=== PATIENT | male | born 1935 | race Caucasian/White ===

== ENCOUNTER 2019-02-08 14:15 | Outpatient (CLI) | payer MEDICARE, BC ==
--- NOTE | 2019-02-08 15:46 | CT ---
CT of the abdomen and pelvis with and without IV contrast INDICATION: Gross hematuria TECHNIQUE: Noncontrast CT of the abdomen and pelvis was performed. Postcontrast images were obtained in the nephrographic phase and delayed phase. Axial and coronal reformatted images were constructed from the raw data. FINDINGS: ABDOMEN: There is a focal region of airspace opacity within the right lower lobe with a small right p leural effusion. Liver: Normal.. Pancreas: Normal. Gallbladder: Partially contracted. Adrenal glands: There is a 2.3 cm right adrenal adenoma. The left adrenal gland is normal-appearing. Kidneys: There is a 10.4 x 10.5 cm cyst that demonstrates areas of peripheral thin interrupted calcif ications. There is a small thin partially calcified septation noted within the inferior pole of the lesion. There are additional simple appearing cyst within the right and left kidney. One of the large st within the right kidney is seen measuring 4 cm within the right mid kidney. No suspicious solid renal lesion is demonstrated.. Spleen: Normal. Retroperitoneum: There is severe calcifications involving the abdominal pelvic vasculature. No lympha denopathy is evident. Pelvis: Bowel: There are scattered diverticula involving the colon without evidence of active diverticulitis. Renal collecting system and bladder: There is suggestion of focal wall thickening and mild narrowing involving the left mid to distal ureter on image 99 of series 4, image 53 of series 6 and image 42 of series 7. No additional gross urothelial lesion is identified. Reproductive structures: The prostate gland is enlarged measuring 5.7 cm. Rectum and perirectal soft tissues: Normal. There is a 1.3 cm enlarged lymph node seen adjacent to the left obturator internus. There is a 1.0 cm enlarged lymph node adjacent to the left external iliac vasculature. Osseous structures: No acute osseous abnormality is demonstrated. IMPRESSION: 1. Focal region of suggested wall thickening and mild stenosis involving the mid to distal left urete r at approximately the L4-L5 intervertebral level. This may be artifactual in nature related to focal peristalsis; however, a focal urothelial lesion cannot been definitely excluded. Recommend cons ideration for retrograde IVP for additional characterization of this finding. 2. Bilateral renal cysts. The largest within the left kidney is consistent with a Bosniak 2 cyst. 3. Prostate enlargement 4. Nonspecific mildly prominent lymph nodes within the left aspect of the pelvis. The largest is seen adjacent to the left obturator internus measuring 1.3 cm. The lymph nodes may be reactive in nature. Would recommend a follow-up CT examination in 4-6 weeks to document stability or resolution. 5. Colonic diverticulosis 6. Right adrenal adenoma 7. Small right pleural effusion with right basilar opacity may reflect rounded atelectasis; however, rounded pneumonia cannot be totally excluded. Recommend correlation with the clinical exam.
[2019-02-08] MEDS ORDERED: ISOVUE-370 76%-LOCM 1 ML ONE (17:09)
== END 2019-02-08 14:16 | disposition home or self-care (01) ==
LOC: BICCT 14:15
PROVIDERS: ATTEND Urology
DX: R31.0 Gross hematuria (principal); N28.89 Other specified disorders of kidney and ureter; N40.0 Benign prostatic hyperplasia without lower urinary tract symptoms; N28.1 Cyst of kidney, acquired; R59.0 Localized enlarged lymph nodes; K57.30 Diverticulosis of large intestine without perforation or abscess without bleeding; D35.01 Benign neoplasm of right adrenal gland; J90 Pleural effusion, not elsewhere classified; R91.8 Other nonspecific abnormal finding of lung field
CPT/HCPCS: 36415; 74178; 82565; G0103; Q9966

== ENCOUNTER 2019-03-17 00:44 | Outpatient (CLI) | payer MEDICARE, BC ==
[2019-03-17 12:07] LABS: Hemoglobin 17.2 g/dL (14.0-18.0); Mean Corpuscular HGB CONC 32.8 g/dL (32.0-36.0); Mean Corpuscular Hemoglobin 31.5 pg (27.0-31.0); Mean Platelet Volume 7.8 fL (7.4-10.4); Platelet Count 204 thou/uL (130-400); RBC Distribution Width 12.9 % (11.5-14.5); Red Blood Cell (RBC) Count 5.45 mill/uL (4.70-6.10); White Blood Cell (WBC) Count 8.9 thou/uL (4.8-10.8)
[2019-03-17 12:12] LABS: PTT 28.6 SEC (22.9-36.1); Prothrombin Time 13.7 SEC (12.0-14.7)
[2019-03-17 12:18] LABS: Bacteria/HPF None Seen HPF (None Seen); Hyaline Casts/LPF 0-3 HYALINE CAST LPF (0-3 Hyaline); Squamous Epithelial 0-3 HPF (0-3); WBC/HPF 0-3 HPF (0-3)
[2019-03-17 12:26] LABS: Anion Gap 15 mmol/L (10-20); BUN (Urea Nitrogen) 26 mg/dL (8.4-25.7); Calc. Creatinine Clearance 0 mL/min (70-130); Calcium 9.6 mg/dL (7.8-10.44); Carbon Dioxide 26 mmol/L (23-31); Chloride 104 mmol/L (98-107); Estimated GFR-MDRD 61; Glucose 174 mg/dL (83-110); Potassium 5.6 mmol/L (3.5-5.1); Sodium 139 mmol/L (136-145)
--- NOTE | 2019-03-19 21:16 | EKG ---
Test Reason : Blood Pressure : / mmHG Vent. Rate : 063 BPM Atrial Rate : 063 BPM P-R Int : 000 ms QRS Dur : 166 ms QT Int : 502 ms P-R-T Axes : 000 -15 122 degrees QTc Int : 513 ms AV sequential or dual chamber electronic pacemaker When compared with ECG of 16-MAR-2013 00:29, Electronic ventricular pacemaker has replaced Electronic atrial pacemaker Confirmed by Dillan YANEZ ([id number]) on 03/19/2019 9:16:03 PM Referred By: CINDI Confirmed By:Dillan YANEZ
== END 2019-03-17 00:45 | disposition home or self-care (01) ==
LOC: LABBT 00:44
PROVIDERS: ATTEND Urology
DX: Z01.818 Encounter for other preprocedural examination (principal); C67.2 Malignant neoplasm of lateral wall of bladder; N40.0 Benign prostatic hyperplasia without lower urinary tract symptoms; N39.41 Urge incontinence; R35.1 Nocturia
CPT/HCPCS: 80048; 81015; 85027; 85610; 85730; 87086; 93005; 93010

== ENCOUNTER 2019-03-27 12:04 | Inpatient (IN) | payer MEDICARE, BC ==
[~2019-03-27 12:04] MED LIST: ISOVUE-370 76%-LOCM 1 ML ONE
[2019-03-27 12:31] LABS: #Lymphocytes 0.9 thou/uL (1.20-3.40); #Monocytes 1.5 thou/uL (0.11-0.59); #Neutrophils 11.2 thou/uL (1.40-6.50); %Eosinophils 0.2 % (0.0-10.0); %Lymphocytes 6.6 % (21.0-51.0); %Neutrophils 82.2 % (42.0-75.0); Hemoglobin 14.5 g/dL (14.0-18.0); Mean Corpuscular HGB CONC 33.2 g/dL (32.0-36.0); Mean Corpuscular Hemoglobin 31.5 pg (27.0-31.0); Mean Corpuscular Volume 94.9 fL (78.0-98.0); Mean Platelet Volume 8.3 fL (7.4-10.4); Platelet Count 153 thou/uL (130-400); RBC Distribution Width 12.8 % (11.5-14.5); Red Blood Cell (RBC) Count 4.61 mill/uL (4.70-6.10); White Blood Cell (WBC) Count 13.6 thou/uL (4.8-10.8)
--- NOTE | 2019-03-27 12:31 | CT ---
Exam: CT brain PROVIDED CLINICAL HISTORY: Strokelike symptoms COMPARISON: 03/15/2013 FINDINGS: The ventricular system is normal in size and morphology. No evidence for intracranial hemorrhage or mass effect. The extracranial soft tissues and osseous structures demonstrate an unremarkable CT appearance. Stable encephalomalacia involving the left occipital region. IMPRESSION: No evidence for intracranial hemorrhage or mass effect. Findings discussed with Dr. Harrington 12:28 PM .
[2019-03-27 12:39] LABS: INR-International Normal Ratio 1.2; PTT 29.7 SEC (22.9-36.1); Prothrombin Time 15.7 SEC (12.0-14.7)
--- NOTE | 2019-03-27 12:45 | RAD ---
EXAM: XR Chest 1 View Portable PROVIDED CLINICAL HISTORY: Altered mental status COMPARISON: 10/16/2018 FINDINGS: Cardiac silhouette remains enlarged. Median sternotomy changes and left subclavian cardiac pacing dev ice are redemonstrated as is vascular calcification. Prominence of the pulmonary vasculature and pulmonary interstitium. No focal consolidation, pleural fluid or pneumothorax apparent. IMPRESSION: Cardiomegaly and findings suggesting congestive failure.
[2019-03-27 12:49] LABS: ALT (SGPT) 40 U/L (8-55); AST (SGOT) 42 U/L (5-34); Albumin 3.2 g/dL (3.4-4.8); Alkaline Phosphatase 72 U/L (40-150); Anion Gap 13 mmol/L (10-20); BUN (Urea Nitrogen) 43 mg/dL (8.4-25.7); Bilirubin, Total 1.2 mg/dL (0.2-1.2); Calc. Creatinine Clearance 0 mL/min (70-130); Calcium 8.9 mg/dL (7.8-10.44); Carbon Dioxide 24 mmol/L (23-31); Chloride 103 mmol/L (98-107); Estimated GFR-MDRD 37; Globulin 2.5 g/dL (2.4-3.5); Glucose 339 mg/dL (83-110); Potassium 4.8 mmol/L (3.5-5.1); Protein, Total 5.7 g/dL (5.8-8.1); Sodium 135 mmol/L (136-145)
--- NOTE | 2019-03-27 12:52 | CT ---
EXAM: CTA Angio Head with IV contrast and 3-D MIPS reconstructions CT angiogram neck with IV contrast and three-dimensional MIPS reconstructions PROVIDED CLINICAL HISTORY: Strokelike symptoms COMPARISON: Noncontrast CT brain FINDINGS: 3 vessel arch with significant atherosclerosis including calcified and noncalcified atherosclerotic p laque. Right pleural fluid and pulmonary vascular congestion. High-grade stenosis due to both calcified and noncalcified plaque is present involving both the right and left proximal internal carotid arteries with minimal residual luminal diameters of approximately 1 mm on the left and less than 1 mm on the right. Additional less than 50% stenosis inv olves the left mid internal carotid artery. Prominent vascular calcification involves the cavernous portions of each internal carotid artery. The great vessels demonstrate no additional significant stenosis. There is no evidence for focal vessel stenosis, branch occlusion or aneurysm involving the intracrani al circulation. IMPRESSION: 1. Critical bilateral proximal internal carotid artery stenoses. 2. No significant abnormality involving CTA brain.
[2019-03-27 13:19] LABS: CKMB 5.7 ng/mL (0-6.6)
[2019-03-27 14:16] LABS: Bilirubin Negative (Negative); Blood, Urine Large (Negative); Clarity CLEAR (Clear); Glucose, Urine (Dipstick) 250 mg/dL (Negative); Leukocyte Negative (Negative); Nitrite Negative (Negative); Protein, Urine (Dipstick) 30 mg/dL (Neg-Trace); Specific Gravity, Urine 1.039 (1.002-1.036); pH, Urine 5.5 (5.0-9.0)
[2019-03-27 14:19] LABS: Bacteria/HPF None Seen HPF (None Seen); Hyaline Casts/LPF 0-3 HYALINE CAST LPF (0-3 Hyaline); RBC/HPF 21-50 HPF (0-3); Squamous Epithelial None Seen HPF (0-3)
[2019-03-27] MEDS ORDERED: Aspirin Chewable 81 MG TAB ONE (15:36)
[2019-03-27] MEDS ORDERED: Acetaminophen 325 MG TAB PO PRN (16:27)
[2019-03-27] MEDS ORDERED: Ondansetron PF 4 MG/2 ML Vial IVP PRN (16:27)
[2019-03-27] MEDS ORDERED: hydrALAZINE 20 MG/ML VIAL SLOW IVP PRN (16:27)
[2019-03-27] MEDS ORDERED: Benzonatate 100 MG CAP PO PRN (16:27)
[2019-03-27] MEDS ORDERED: Bisacodyl 5 MG TAB PO PRN (16:27)
[2019-03-27] MEDS ORDERED: Senokot S 8.6-50 MG TAB PO PRN (16:27)
[2019-03-27] MEDS ORDERED: Nitroglycerin 0.4 MG TAB (25 Tab Bottle) SL PRN (16:27)
[2019-03-27] MEDS ORDERED: Diabetic Tussin 200 MG/10 ML UDCUP PO PRN (16:27)
[2019-03-27] MEDS ORDERED: Dextrose 5% in Water 1,000 ML IV PRN (17:18)
[2019-03-27] MEDS ORDERED: Dextrose 50% Abboject 50 ML SYRINGE SLOW IVP PRN (17:18)
[2019-03-27] MEDS ORDERED: HumaLOG 300 UNITS/3 ML VIAL SC PRN ×2 (17:18)
[2019-03-27] MEDS ORDERED: Furosemide 40 MG/4 ML VIAL SLOW IVP SCH (17:30)
[2019-03-27] MEDS ORDERED: Spironolactone 25 MG TAB PO SCH (17:45)
[2019-03-27 17:56] LABS: Critical Call Chem Troponin I RESULT DECREASING; Troponin I 10.851 ng/mL (< 0.028)
--- NOTE | 2019-03-27 18:57 | HP ---
PRIMARY CARE PHYSICIAN: John Armas MD. PRIMARY RETAIL SALES ASSOCIATE: Ian Tong MD. CHIEF COMPLAINT: Problems with speech and weakness. HISTORY OF PRESENTING ILLNESS: Mr. Perry is a pleasant 83-year-old male with known history of dyslipidemia, coronary artery disease with CABG as well as chronic ischemic cardiomyopathy, status post AICD placement in the past, who presented to the emergency room with the above-mentioned complaint. History is mainly obtained from the patient himself, and electronic medical records have been reviewed. The patient reports that he was having breakfast this morning when all of a sudden he had onset of generalized weakness, more so in his arms and the legs. He then proceeded to developed difficulty with his speech. He remembers the whole episode and feels that he was trying to talk, but his words would not come out. His called the EMS, and he was air evacuated because of the acute neurological deficits. The also reported to the EMS that he had right-sided facial droop, dysarthria, and right hand weakness. Symptom onset was around 10 a.m., this morning. According to the EMS, the patient was able to move right upper extremity with equal surgical physician assistant strength. The patient had no recent illnesses, but has undergone bladder surgery by Dr. Saucedo 2 days ago with ureteroscopy and retrograde pyelogram. He has noticed some blood in his urine, which has since cleared up. He is supposed to be on aspirin and Plavix, but was not able to tell me if he has taken them today or not. He denies any chest pain, shortness of breath, orthopnea, or PND during the episode today. He does remember that he has been feeling more tired and lethargic yesterday. Upon presentation to the emergency room, his blood pressure was 150/81, saturations 94% on room air. His initial workup included a 12-lead EKG, which showed paced rhythm and prolonged QTc interval of [address] He [address] scan of the head, which did not show any acute changes or hemorrhage. His chest x-ray did suggest pulmonary vascular congestion. He underwent a CT angio of the [place] of head as well as head and neck, and it showed high-grade critical bilateral proximal internal carotid artery stenosis. He was last admitted to our facility in 2012, for similar symptoms of stroke and underwent tPA. At that time, the CT angio showed moderate bilateral internal carotid artery stenosis. In the emergency room, his symptoms have resolved, so he was not a tPA candidate. Unfortunately, his workup revealed a troponin of 10.57, which went higher to 11.443. Cardiology, Dr. Vaca on-call was consulted by the emergency room physician, and he recommended aspirin and Plavix. Lovenox was not recommended by Dr. Vaca at this time. Emergency room physician did not give the Plavix because of recent bladder surgery 2 days ago. The patient was found to have some rbc's and blood in his urine on urinalysis. At this time, he is hemodynamically stable. Awake, alert, and oriented with no neurological deficits. He will be admitted to [facility] for [id number] ME as well as acute CVA. PAST MEDICAL HISTORY: 1. Hypertension. 2. Coronary artery disease, status post CABG. 3. Ischemic cardiomyopathy, status post AICD placement. 4. Diabetes mellitus, type 2. 5. Hypothyroidism. 6. Dyslipidemia. 7. Chronic systolic congestive heart failure. 8. History of CVA in 2012. PAST SURGICAL HISTORY: 1. Coronary artery bypass graft. 2. AICD placement. 3. Recent retrograde pyelogram with ureteroscopy by Dr. Saucedo on 03/25/2019, for bladder tumor resection, which was found to be low-grade papillary urothelial carcinoma, noninvasive as per the Pathology report. CODE STATUS: Full code, discussed with the patient in detail. ALLERGIES: NO KNOWN MEDICATION ALLERGIES. SOCIAL HISTORY: He is and lives with his . No history of drug, tobacco, or alcohol abuse. FAMILY HISTORY: No family history of coronary artery disease, stroke, or cancer. CURRENT MEDICATIONS: As per the emergency room record, he takes the followin. Entresto 49/51 b.i.d. 2. Aspirin 81 mg daily. 3. Digoxin 125 mcg daily. 4. Aldactone 25 mg daily. 5. Carvedilol 12.5 mg daily. 6. Plavix 75 mg daily. 7. Centrum Silver daily. 8. Fish oil 1000 mg p.o. b.i.d. REVIEW OF SYSTEMS: A 14-point review of systems is done. It is negative except for those mentioned in the history and physical. LABORATORY EXAMINATION: CBC shows WBCs of 13.6 with 82% neutrophils, otherwise unremarkable; hemoglobin is 14.5. PT, PTT, and INR are unremarkable. Serum chemistry shows sodium of 135, BUN 43, creatinine 1.78 with last baseline in our facility around 1.14 on 03/17/2019. His blood sugar upon presentation is 339, and his troponin is 10.578 with a CK-MB of 5.7 and repeat troponin of 11.443. BNP was checked by myself, which was found to elevate at 1467. Urinalysis showed some rbc's and large blood without any bacteria. Chest x-ray by my review shows pulmonary vascular congestion. CT scan of the brain by my review shows no acute hemorrhage or mass or infarction. A 12-lead EKG by my review shows heart rate at 62, AV paced rhythm with QTc of [address] milliseconds without any acute ST or T-wave changes. PHYSICAL EXAMINATION: VITAL SIGNS: Upon presentation, blood pressure 150/81, pulse of 60, respirations 20, temperature 97.6, saturating 94% on room air. GENERAL: No acute distress. Awake, alert, and oriented x3. He appears to be in good spirits, but generally speaking, looks chronically ill. HEENT: Mucous membrane is slightly dry. No oropharyngeal exudate or erythema. Head is normocephalic and atraumatic. Pupils are equal and reactive to light and accommodation. Extraocular movement, intact. NECK: Supple without any lymphadenopathy, JVD, or bruit. CHEST: Clear to auscultation without any wheezing, rales, or rhonchi. He has a big pacemaker battery, left anterior chest without any dehiscence, erythema, or tenderness. CHEST: Shows few bibasilar crackles without any wheezes. ABDOMEN: Soft, nontender, and nondistended with positive bowel sounds. No rebound, guarding, or rigidity. EXTREMITIES: Free of any cyanosis, clubbing, or edema. NEUROLOGIC: At this time, he has no neurological deficits. Muscle strength is at least 4/5 in bilateral extremities. Cranial nerves 2 through 12 are grossly intact. Sensation, intact. His speech is not dysarthric, and he does not have any aphasia on my examination. He does have some halting speech, but I feel that is his baseline. SKIN: Free of any rashes or bruises. Feels warm and dry to touch. PSYCHIATRIC: Normal affect. IMPRESSION AND PLAN: 1. Acute onset of aphasia. Symptoms are quite concerning for acute cerebrovascular accident. He will be admitted for full stroke workup. We have ordered MRI of the brain along with a transthoracic echocardiogram. He does have high-grade internal carotid artery stenosis and severe coronary artery disease making him a very high risk. We will consult Neurology. I have notified Dr. Gómez about the patient is being admitted to the hospital. At this time, continue the aspirin, but we will withhold any further anticoagulation given his recent bladder surgery and hematuria. He is otherwise hemodynamically stable, and his stroke symptoms have since . We will consult Stroke Team with OT, PT, and Speech Therapy evaluation and continue to do frequent neuro exams. Because of his severity of symptoms and other issues, he will be admitted to IMCU instead of stroke floor. We will start him on high-dose statin. 2. Ipb-CJ-qmfypthwh myocardial infarction. The patient's symptoms are quite concerning for a cardiac event as well. We will continue to trend serial cardiac enzymes and continue with full-dose aspirin for now. Cardiology has been consulted from the emergency room, and Dr. Vaca has seen the patient. According to him at this time, there are no plans for cardiac catheterization, but we will keep him n.p.o. for now. We will obtain a transthoracic echocardiogram. We will continue with his Entresto and his carvedilol. We will start him on high-dose statin. 3. Vuesf-gy-mwkctza systolic congestive heart failure. The patient has vascular congestion on chest x-ray with elevated BNP. He does not appear grossly fluid overloaded, but it is a possibility that he is in acute congestive heart failure, leading to elevation of troponin. We will give him 1 dose of Lasix and recheck BNP in the morning. We will restart his carvedilol, Aldactone, and digoxin for now. Continue aspirin and statin. We will continue with his Entresto as well. Echocardiogram has been ordered as part of the stroke protocol. 4. Bilateral carotid artery stenosis. We will request consultation with Cardiovascular Surgery, though it does not seem like he is surgically amenable. He will be started on high-dose statin and aspirin for now. Restart Plavix once cleared by Cardiology and Neurology. 5. History of cerebrovascular accident. Continue aspirin and statin for now. Resume Plavix once cleared by Cardiology. 6. Diabetes mellitus, type 2, uncontrolled. We will put him on aggressive insulin sliding scale and monitor Accu-Cheks a.c. and at bedtime. 7. Hypertension, currently controlled. Restart home medication as above including carvedilol. 8. History of coronary artery disease. Restart Entresto, aspirin, digoxin, Aldactone, and carvedilol. Plavix is held as above. Resume fish oil. 9. Deep venous thrombosis and gastrointestinal prophylaxis. 10. Code status: Full code, discussed with the patient. DISPOSITION: Mr. Perry is being admitted to the [facility] for multitude of issues as outlined above. Estimated length of stay at this time is at least 2 to 3 midnights. He is thankfully hemodynamically stable for now. TIME SPENT: Total time spent in taking care of this patient, 47 minutes including discussion with consultants and [id number] interaction. Job ID: [id number]
[2019-03-27] MEDS: Famotidine 20 MG TAB PO SCH (19:42)
[2019-03-27] MEDS: Atorvastatin Calcium 40 MG TAB PO SCH (19:42)
[2019-03-27 20:02] VITALS: BMI 26.2
[2019-03-27 21:35] LABS: Critical Call Chem Troponin I RESULT DECREASING; Troponin I 10.289 ng/mL (< 0.028)
[2019-03-27] MEDS: Sacubitril 49 MG/Valsartan 51 MG TABLET PO SCH (22:27)
--- NOTE | 2019-03-28 02:52 | CON ---
DATE OF CONSULTATION: HISTORY OF PRESENT ILLNESS: Alvin Perry is an 83-year-old white male I have seen in the past; however, his current reimbursement representative is Dr. Tong. I first evaluated him in February 2004. Prior to that in May 1999 while he was living in [place], he had a myocardial infarction, was transferred to [place], [place]. He underwent a cardiac catheterization there followed by stent placement. His pain at that time was right neck discomfort. Then, I saw him in February 2004. He was referred for evaluation prior to peripheral vascular treatment. Ejection fraction at that time was 25% to 30% and he underwent dobutamine echo testing, which revealed scar at the inferior-posterior wall as well as scarring of the lateral wall and he developed septal ischemia. He underwent cardiac catheterization. He had inferobasal akinesis and moderate anterior hypokinesis. There was a stent in the right coronary artery that was totally occluded and the right coronary filled retrograde from the left. The mid circumflex is totally occluded and filled retrograde from the left. The LAD had a 50% to 60% proximal stenosis and a 50% mid stenosis. He then underwent CABG x3 by Dr. Mcintyre in February 2004. There was left radial artery placed to the LAD, saphenous vein graft to the obtuse marginal 2 and saphenous vein graft to the right posterior descending. He continued to have poor left ventricular function, and ultimately in February 2009, he underwent placement of a dual-chamber ICD. In April 2011, he apparently had placement of a drug-eluting stent in the mid LAD while visiting in [place]. He stated that he was never given a prescription for Plavix when he was discharged. He then presented to [facility] later in April, with anterolateral ST-segment elevation myocardial infarction secondary to acute LAD stent thrombosis. He was given TNKase and heparin in [place] and apparently reperfused. He was taken emergently to the blood and plasma laboratory assistant by Dr. Akers. The LAD stent was patent, but with probable thrombus in it. Right coronary artery was totally occluded. Bypass grafts revealed occluded radial to the LAD and occluded saphenous vein graft to the obtuse marginal. The vein graft to the right posterior descending was patent. He underwent IVUS of the LAD stent and it appeared to be patent. He was maintained on Integrilin for approximately 48 hours. Peak CK was 858 with an MB of 93.7. Troponin I of 249.755. LDL at that time was 56. The last time I saw him was in the office in May 2011. He was hospitalized here in March 2013 with cerebrovascular accident and was given tPA. He has since had upgrade to a biventricular ICD approximately 1 year ago. Two days ago, on March 25, he underwent cystoscopy with bladder biopsy, fulguration of tumor site. Mr. Perry is very vague, but apparently he held his aspirin and Plavix for several days prior to that procedure. Then, this morning, he had sudden onset of generalized weakness as well as difficulty speaking. His called EMS and he was air evacuated because of the acute neurological changes. He also had some right-sided hand weakness, right-sided facial droop. Upon arrival here, he had urgent CT scan of the head, which did not show any acute changes or hemorrhage. CT angiogram of the [place] showed high-grade critical bilateral proximal internal carotid artery stenosis. His symptoms resolved and so he was not given lytic therapy. He has been found to have an elevated troponin I, but denies any chest discomfort. His last known ejection fraction here was in 2012, which was 15% to 20%; however, since that time, he has had a biventricular ICD placed. PAST MEDICAL HISTORY: Hypertension, hypercholesterolemia, ischemic cardiomyopathy, coronary artery disease, noncompliance with medications at times, diabetes, history of CVA in 2013, and hypothyroidism. PAST SURGICAL HISTORY: CABG, AICD placement, and recent urological surgery. MEDICATIONS: 1. Carvedilol 12.5 b.i.d. 2. Digoxin 0.125 daily. 3. Proscar 5 mg daily. 4. Centrum Silver. 5. Novolin 70/30. 6. Synthroid 25 mcg daily. 7. Entresto 24/26 daily. 8. Simvastatin 80 at bedtime. 9. Aldactone 25 daily. 10. Flomax 0.4 daily. ALLERGIES: NONE. SOCIAL HISTORY: He smoked one pack per day from 1955 until 1982, but stopped at that time. He occasionally will have a drink. 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 REVIEW OF SYSTEMS: A 12-point review of systems is otherwise unremarkable. PHYSICAL EXAMINATION: VITAL SIGNS: Blood pressure 135/63, and pulse of 63. HEENT: PERRL. NECK: Supple. CHEST: Clear. CARDIAC: S1 and S2 normal without any S3 or S4. There is a 1/6 holosystolic murmur at the apex. Carotid upstrokes normal with bilateral bruits. ABDOMEN: Normal bowel sounds without tenderness, or organomegaly. EXTREMITIES: Revealed no clubbing, cyanosis, or edema. NEUROLOGIC: Grossly intact. SKIN: Warm and dry. LABORATORY DATA: EKG reveals A-V pacing. White count 13,600, hemoglobin 14.5, hematocrit 43.8, platelets 153. INR 1.2. Troponin I 11.443. BNP 1467.2. Sodium 135, potassium 4.8, chloride 103, carbon dioxide 24, BUN 43, creatinine 1.78 (on March 17, creatinine was 1.14). IMPRESSION: 1. Transient ischemic attack with some aphasia, right-sided weakness. 2. Bilateral critical internal carotid artery stenosis. 3. Probable non-ST segment elevation myocardial infarction with significant elevation of troponin I. He has been off aspirin and Plavix for his urological procedure and certainly this could have contributed to a non-ST segment elevation myocardial infarction as well as transient ischemic attack. 4. Severe ischemic cardiomyopathy, unknown ejection fraction since upgrade to a biventricular ICD. 5. History of biventricular ICD. 6. Status post coronary artery bypass grafting. Last catheterization that I am aware of in 2010, only his graft to the right posterior descending was patent. He had a patent left anterior descending stent. 7. History of inferior myocardial infarction in 1998 with placement of stent in the right coronary artery in [place]. 8. Hypertension. 9. Hyperlipidemia, probably under poor control with last LDL in September 2018 was 157. 10. Hypothyroidism. 11. Former smoker. 12. Positive family history with father having CABG at age 40. PLAN: Echocardiogram will be performed to reassess left ventricular function. He has critical bilateral carotid artery stenosis and now has had significant TIA when he was off antiplatelet therapy. Vascular Surgery consultation is needed. Certainly, consideration may be given to cardiac catheterization to reassess left ventricular function. His creatinine will be followed very closely with the patient just receiving [address] and [place]. If his creatinine range is significantly elevated tomorrow, then consideration may be given to gentle IV hydration. I will follow the patient with you. Job ID: [id number] [facility]
[2019-03-28 04:33] LABS: #Eosinphils 0.2 thou/uL (0.0-0.7); #Lymphocytes 1.6 thou/uL (1.20-3.40); #Monocytes 1.5 thou/uL (0.11-0.59); #Neutrophils 10.2 thou/uL (1.40-6.50); %Basophils 0.2 % (0.0-1.0); %Eosinophils 1.8 % (0.0-10.0); %Lymphocytes 11.9 % (21.0-51.0); %Neutrophils 75.2 % (42.0-75.0); Hemoglobin 15.3 g/dL (14.0-18.0); Mean Corpuscular HGB CONC 32.6 g/dL (32.0-36.0); Mean Corpuscular Hemoglobin 30.6 pg (27.0-31.0); Mean Platelet Volume 8.1 fL (7.4-10.4); Platelet Count 193 thou/uL (130-400); RBC Distribution Width 12.8 % (11.5-14.5); Red Blood Cell (RBC) Count 5.01 mill/uL (4.70-6.10); White Blood Cell (WBC) Count 13.6 thou/uL (4.8-10.8)
[2019-03-28 04:56] LABS: Anion Gap 12 mmol/L (10-20); BUN (Urea Nitrogen) 36 mg/dL (8.4-25.7); Calc. Creatinine Clearance 42 mL/min (70-130); Calcium 9.7 mg/dL (7.8-10.44); Carbon Dioxide 28 mmol/L (23-31); Cardiac Risk 3.6 (Less than 4.5); Chloride 101 mmol/L (98-107); Cholesterol 114 mg/dl (< 200 Desired); Estimated GFR-MDRD 53; HDL Cholesterol 32 mg/dL (>60 Neg Risk); LDL Cholesterol, Calculated 68 mg/dL; Potassium 3.4 mmol/L (3.5-5.1); Sodium 138 mmol/L (136-145); Triglycerides 69 mg/dL (Less than 150)
[2019-03-28 05:05] LABS: Critical Call Chem Troponin I RESULT DECREASING
[2019-03-28 05:07] LABS: Glucose 55 mg/dL (83-110)
[2019-03-28 05:23] LABS: CKMB 2.6 ng/mL (0-6.6)
[2019-03-28] MEDS ORDERED: Enoxaparin Sodium 40 MG/0.4 ML SYRINGE SC SCH (09:00)
[2019-03-28] MEDS: Famotidine 20 MG TAB PO SCH (09:20)
[2019-03-28] MEDS: Carvedilol 6.25 MG TAB PO SCH ×2 (09:20→16:26)
[2019-03-28] MEDS: Digoxin 0.125 MG TAB PO SCH (09:20)
[2019-03-28] MEDS: Spironolactone 25 MG TAB PO SCH (09:20)
[2019-03-28] MEDS: Aspirin 325 mg Enteric Coated Tablet PO SCH (09:20)
[2019-03-28] MEDS: Sacubitril 49 MG/Valsartan 51 MG TABLET PO SCH ×2 (09:21→21:12)
[2019-03-28] MEDS ORDERED: Furosemide 40 MG/4 ML VIAL SLOW IVP SCH (11:30)
[2019-03-28] MEDS: Potassium Chloride 20 MEQ TAB PO SCH ×2 (12:18→16:26)
[2019-03-28] MEDS: Communication Order-Pharmacy FS SCH (12:44)
--- NOTE | 2019-03-28 14:19 | PDOC.PN ---
- Subjective Encounter Start Date: 03/28/19 Encounter Start Time: 12:40 Subjective: no c/o chest pain or sob -: feels weak overall, stood up and is trying to ambulate with PT - Objective Resuscitation Status - Order Detail: 03/27/19 17:21 Resuscitation Status Routine Resuscitation Status: FULL: Full Resuscitation Discussed with: discussed with pt MAR Reviewed: Yes Vital Signs & Weight: Vital Signs (12 hours) Temp Pulse Pulse Pulse Resp BP BP 03/28/19 11:09 98.2 F 03/28/19 09:35 64 63 143/66 H 141/67 H 03/28/19 09:20 66 03/28/19 08:00 98.3 F 64 20 03/28/19 07:19 98.0 F 03/28/19 04:00 98.3 F Pulse Ox Pulse Ox Pulse Ox 03/28/19 11:09 03/28/19 09:35 94 L 92 L 03/28/19 09:20 03/28/19 08:00 93 L 03/28/19 07:19 03/28/19 04:00 Weight Weight 154 lb 2 oz Most Recent Monitor Data Heart Rate from ECG 65 NIBP 116/46 NIBP BP-Mean 69 Respiration from ECG 22 SpO2 97 I&O: 03/27/19 03/28/19 03/29/19 06:59 06:59 06:59 Intake Total 314 750 Output Total 850 420 Balance -536 330 Result Diagrams: 03/28/19 04:00 03/28/19 04:00 Additional Labs: Accuchecks 03/28/19 03/28/19 03/28/19 10:41 05:52 05:15 POC Glucose 100 180 H 58 L* 03/27/19 20:25 POC Glucose 105 Phys Exam - Physical Examination HEENT: PERRLA, moist MMs Neck: no JVD, supple Respiratory: no wheezing, no rales Cardiovascular: RRR, no significant murmur Gastrointestinal: soft, non-tender, positive bowel sounds Musculoskeletal: no edema, pulses present Neurological: non-focal, moves all 4 limbs Psychiatric: normal affect, A&O x 3 Dx/Plan (1) TIA (transient ischemic attack) Code(s): G45.9 - TRANSIENT CEREBRAL ISCHEMIC ATTACK, UNSPECIFIED Status: Acute (2) NSTEMI (non-ST elevated myocardial infarction) Code(s): I21.4 - NON-ST ELEVATION (NSTEMI) MYOCARDIAL INFARCTION Status: Acute (3) Acute exacerbation of CHF (congestive heart failure) Code(s): I50.9 - HEART FAILURE, UNSPECIFIED Status: Acute Qualifiers: Heart failure type: combined systolic and diastolic Qualified Code(s): I50.43 - Acute on chronic combined systolic (congestive) and diastolic ( congestive) heart failure Comment: ef of 30%, class C (4) Carotid artery stenosis Code(s): I65.29 - OCCLUSION AND STENOSIS OF UNSPECIFIED CAROTID ARTERY Status : Acute Qualifiers: Laterality: bilateral Qualified Code(s): I65.23 - Occlusion and stenosis of bilateral carotid arteries (5) CAD (coronary artery disease) Code(s): I25.10 - ATHSCL HEART DISEASE OF [place] CORONARY ARTERY W/O ANG PCTRS Status: Chronic Qualifiers: Coronary Disease-Associated Artery/Lesion type: bypass graft [place] vs. transplanted heart: [place] heart Associated angina: without angina Qualified Code(s): I25.810 - Atherosclerosis of coronary artery bypass graft(s) without angina pectoris (6) HTN (hypertension) Code(s): I10 - ESSENTIAL (PRIMARY) HYPERTENSION Status: Chronic Qualifiers: Hypertension type: essential hypertension Qualified Code(s): I10 - Essential (primary) hypertension (7) Ischemic cardiomyopathy Code(s): I25.5 - ISCHEMIC CARDIOMYOPATHY Status: Chronic (8) H/O: CVA (cerebrovascular accident) Code(s): Z86.73 - PRSNL HX OF TIA (TIA), AND CEREB INFRC W/O RESID DEFICITS Status: Chronic Comment: likely in the left occipital area in 2013 (9) Bladder cancer Status: Chronic - Plan is on asp, lipitor, coreg, digoxin, spironolactone -: recieved 1 dose lasix yest -: PT to mobilize as tolerated -: neurologically stable now -: will f/u * . Review of Systems - Medications/Allergies Allergies/Adverse Reactions: Allergies Allergy/AdvReac Type Severity Reaction Status Date / Time No Known Allergies Allergy Verified 03/17/19 10:53 Medications: Current Medications Acetaminophen (Tylenol) 650 mg PO Q4H PRN PRN Reason: Headache/Fever/Mild Pain (1-3) Aspirin (Ecotrin) 325 mg PO DAILY [facility]AT[facility] Last Admin: 03/28/19 09:20 Dose: 325 mg Atorvastatin Calcium (Lipitor) 80 mg PO HS [facility] Last Admin: 03/27/19 19:42 Dose: 80 mg Bisacodyl (Dulcolax) 10 mg PO DAILYPRN PRN PRN Reason: Constipation Carvedilol (Coreg) 12.5 mg PO BID-[facility] Last Admin: 03/28/19 09:20 Dose: 12.5 mg Dextrose/Water (Dextrose 50%) 25 gm SLOW IVP PRN PRN PRN Reason: Hypoglycemia Last Admin: 03/28/19 05:18 Dose: 25 gm Digoxin (Lanoxin) 0.125 mg PO DAILY [facility] Last Admin: 03/28/19 09:20 Dose: 0.125 mg Enoxaparin Sodium (Lovenox) 40 mg SC 0900 [facility] Stop: 03/28/19 23:00 Last Admin: 03/28/19 09:20 Dose: 40 mg Famotidine (Pepcid) 20 mg PO BID [facility] Last Admin: 03/28/19 09:20 Dose: 20 mg Furosemide (Lasix) 40 mg SLOW IVP DAILY [facility] Stop: 03/29/19 09:01 Last Admin: 03/28/19 12:19 Dose: 40 mg Glucagon (Glucagon) 1 mg IM PRN PRN PRN Reason: Hypoglycemia Guaifenesin (Robitussin Sf) 200 mg PO Q4H PRN PRN Reason: Cough Hydralazine HCl (Apresoline) 10 mg SLOW IVP Q4H PRN PRN Reason: SBP > 180 and HR < 70 Dextrose/Water (D5w) 1,000 mls @ 0 mls/hr IV .Q0M PRN PRN Reason: Hypoglycemia Sodium Chloride (Normal Saline 0.9%) 1,000 mls @ 100 mls/hr IV .Q10H [facility] Insulin Human Lispro (Humalog) 0 units SC .AGGRESSIVE SLIDING PRN PRN Reason: Aggressive Correctional Scale Insulin Human Lispro (Humalog) 0 units SC .BEDTIME SLIDING SC PRN PRN Reason: Bedtime Correctional Scale Miscellaneous Information (Communication Order-Pharmacy) 0 each FS 1200 [facility] Last Admin: 03/28/19 12:44 Dose: 1 each Nitroglycerin (Nitrostat) 0.4 mg SL Q5MIN PRN PRN Reason: Chest Pain Ondansetron HCl (Zofran) 4 mg IVP Q6H PRN PRN Reason: Nausea/Vomiting Potassium Chloride (K-Dur) 40 meq PO Q4H [facility] Stop: 03/28/19 15:31 Last Admin: 03/28/19 12:18 Dose: 40 meq Sacubitril/Valsartan (Entresto 49 Mg-51 Mg Tablet) 1 tab PO BID [facility] Last Admin: 03/28/19 09:21 Dose: 1 tab Senna/Docusate Sodium (Senokot S) 2 tab PO BID PRN PRN Reason: Constipation Sodium Chloride (Flush - Normal Saline) 10 ml IVF PRN PRN PRN Reason: Saline Flush Last Admin: 03/28/19 05:19 Dose: 10 ml Spironolactone (Aldactone) 25 mg PO QAM-[facility] Last Admin: 03/28/19 09:20 Dose: 25 mg
--- NOTE | 2019-03-28 17:45 | CON ---
DATE OF CONSULTATION: 03/28/2019 SERVICE: Pulmonary Medicine. HISTORY OF PRESENT ILLNESS: The patient is an 83-year-old white male with past medical history significant for coronary artery disease. He was in his usual state of health when he came into the hospital with overwhelming fatigue and weakness. He is also having some speech-related issues. In the emergency department, his troponin was elevated. He was tucked in the ICU. He denies any current fevers, chills, nausea, vomiting, or diarrhea. His strength has improved a little bit overnight. He is tolerating p.o. In fact, he is quite hungry. He had underwent a recent bladder surgery 2 days ago, which included a ureteroscopy and retrograde pyelogram. Overnight, he had a significant improvement in symptoms. On presentation, his troponin was quite elevated. PAST MEDICAL HISTORY: 1. Coronary artery disease. 2. Hypertension. 3. Dyslipidemia. 4. Type 2 diabetes mellitus. 5. Chronic systolic heart failure. 6. Hypothyroidism. 7. History of CVA. PAST SURGICAL HISTORY: 1. Coronary artery bypass graft surgery. 2. AICD placement. 3. Retrograde pyelogram and ureteroscopy. ALLERGIES: NO KNOWN DRUG ALLERGIES. MEDICATIONS: List of his inpatient medications was reviewed. No specific updates were made at this time. SOCIAL HISTORY: Negative for alcohol, tobacco, or illicit drug use currently. He has no exposure to chemicals, dust, asbestos, or tuberculosis. FAMILY HISTORY: Noncontributory. REVIEW OF SYSTEMS: General, head, ears, eyes, nose, throat, cardiovascular, respiratory, GI, , musculoskeletal, neurologic, and skin are negative except as mentioned is the HPI. PHYSICAL EXAMINATION: VITAL SIGNS: Afebrile, pulse 71, blood pressure 141/67, respirations 26, and saturation 97% on room air. GENERAL: The patient is awake and alert, in no apparent distress. LUNGS: Decent air entry. Dependent crackles are present. There is slightly prolonged expiratory phase, but I do not hear any wheezing or rhonchi. HEART: Normal rate, regular. ABDOMEN: Soft, nontender, and nondistended. Bowel sounds are positive. MUSCULOSKELETAL: No cyanosis or clubbing. There is trace pitting in the bilateral lower extremities. NEUROLOGIC: Grossly nonfocal. LABORATORY DATA: WBC 13.6, hemoglobin 15.3, and platelets 199,000. INR 1.2. Glucose 100, potassium 3.4, creatinine 1.29 and gently downtrending. Troponin has improved to 8, BNP 1600, historic high. Liver function studies are otherwise unremarkable. Urinalysis is positive for significant hematuria, but not much in the way of pyuria. Nitrites and leukocyte esterase are negative. Blood cultures x2 and urine culture negative to date. IMAGING STUDIES: Chest x-ray demonstrates fluid in the fissure, interstitial spaces as well as cephalization. Cardiac silhouette is quite enlarged. There are sternotomy wires present. Biventricular AICD device is noted. I do not see any obvious effusion is present. ASSESSMENT: 1. [id number] myocardial infarction. 2. Acute on chronic systolic heart failure. 3. Carotid arterial disease, critical. 4. Transient ischemic attack. 5. Recent cystoscopy with resection of cancer. DISCUSSION AND PLAN: The patient is stable currently for transition out of the ICU to the telemetry unit. Pulmonary/Critical Care will continue to follow along. Echocardiogram is currently pending. I will give the patient a couple doses of Lasix as he is minimally volume overloaded at this time. Potassium will be replaced today, we will recheck a magnesium tomorrow morning. Pulmonary will continue to follow for the time being. 70 minutes have been devoted to this patient in various activities. I personally reviewed all imaging studies and laboratory data noted within this document. For fifty percent of this time, I was interacting with the patient at the bedside or coordinating care with the care team. For the remainder of the time I was immediately available to the patient in the hospital unit. Job ID: [id number] MTDD
--- NOTE | 2019-03-28 18:21 | CON ---
DATE OF CONSULTATION: 03/28/2019 CONSULTING PHYSICIAN: Hospitalist Service. IMPRESSION: 1. Possible transient ischemic attack with transient dysarthria. 2. Bilateral high-grade internal carotid artery stenosis. 3. Diabetes. 4. Peripheral vascular disease. 5. Coronary artery disease. 6. Hyperlipidemia. 7. Aspirin and Plavix failure. PLAN: 1. Consult CT Surgery for possible endarterectomy. 2. Continue current antiplatelet therapy and statin. 3. Review echocardiogram. HISTORY OF PRESENT ILLNESS: Mr. Perry is an 83-year-old gentleman, who is a patient of Dr. Tong. He apparently had some slurred speech while at the house. He was brought into the hospital for evaluation. His CT scan of the brain did not show any acute changes. CT angiogram showed bilateral high-grade stenosis of the internal carotid arteries. He denies having any recent stroke symptoms. He has a distant history of minor stroke. He reports being compliant with his medication. PAST MEDICAL HISTORY: As listed above. ALLERGIES: NONE REPORTED. SOCIAL HISTORY: No tobacco use. FAMILY HISTORY: Noncontributory. MEDICATIONS: Medication list was reviewed. REVIEW OF SYSTEMS: A 10-system review of systems is otherwise negative. PHYSICAL EXAMINATION: GENERAL: He is a healthy-appearing elderly gentleman, in no distress. VITAL SIGNS: Stable. He is afebrile. HEENT: Pupils equal. Conjunctivae clear. Oropharynx clear. Cranium, normocephalic and atraumatic. NECK: Supple. No lymphadenopathy. EXTREMITIES: No cyanosis or edema. NEUROLOGIC: He is alert and appropriate. cranial nerves are intact. Motor exam showed equal supervisor roller printing strength. There was no tremor or dysmetria present. Sensations intact to light touch. No abnormal movements were seen. LABORATORY DATA: EKG shows a paced rhythm. SUMMARY: An elderly man with some transient bilateral high-grade stenosis. He is already on maximum medical therapy. We will see what CT Surgery has to say about addressing the carotid disease. Otherwise, I would continue his current regimen. Job ID: [id number]
--- NOTE | 2019-03-28 20:26 | CON ---
DATE OF CONSULTATION: 03/28/2019 OTHER CONSULTING PHYSICIAN: Carl Vaca MD. PRIMARY CARE PHYSICIAN: John Armas MD. CHIEF COMPLAINT: Difficulty speaking, right facial droop, right arm weakness. HISTORY OF PRESENT ILLNESS: The patient is an 83-year-old male with a complicated cardiovascular history dating back to at least 2003. At that time, while undergoing a workup for symptomatic peripheral vascular disease, he was found to have severe 3-vessel coronary artery disease with decreased LV function, underwent coronary artery bypass grafting. Because of an ischemic cardiomyopathy, he ultimately underwent implantation of an AICD in 2008, and about a year ago, that was upgraded to a biventricular AICD. In 2012, the patient had a left hemispheric stroke manifested as dysarthria or aphasia, and he had prompt resolution of his symptoms with the administration of tPA. At that time, he had modest elevations of velocities and ratios on his carotid ultrasound, and by CT angiography, he had modest plaque and roughly a 50% left carotid stenosis. Echocardiography at that time showed an EF of around 15% to 20%, and it was opted to pursue medical management. Late last week on the evaluation of hematuria, he was found to have what proved to be a noninvasive low-grade urothelial carcinoma in his bladder wall, and even though his antiplatelet agents have been held, he had a fair amount of bleeding associated with traversing the prostatic segment of his urethra. He apparently had a fair amount of fluid administration in the recovery room and required Lasix for the development of rales. With respect to chest symptoms, he was asymptomatic, did well, and was discharged home the following day, Friday. Friday morning, he had fairly sudden onset of difficulty speaking, and EMS noted a right facial droop and right arm weakness. His symptoms largely resolved by the time he was evaluated in the emergency room, and no thrombolytics were given. He was noted, however, in spite of the absence of any chest symptoms to have a troponin that was elevated at a little over 10.5. It daniel to about 11.4 roughly 5 hours later and then fell to 10.9 about 2 hours after that. His BNP was elevated at nearly 1500. CT scanning showed stable left occipital encephalomalacia, but showed significant progression of disease in his carotids. PAST MEDICAL HISTORY: Also significant for hypertension, diabetes mellitus, and hypothyroidism. HOME MEDICATIONS: 1. Coreg 12.5 mg b.i.d. 2. Digoxin 0.125 mg a day. 3. Entresto 24/26 one a day. 4. Aldactone 25 mg a day. 5. Simvastatin 80 mg at bedtime. 6. Novolin 70/30, 30 units subcutaneously b.i.d. 7. Flomax one a day. 8. Proscar 5 mg a day. 9. Detrol 2 mg b.i.d. 10. Synthroid 25 mcg a day. 11. . 12. Fish oil. He has been restarted on an adult aspirin. His Entresto has been increased to 49/51 b.i.d., and he is on daily IV Lasix. ALLERGIES: HE DENIES ANY MEDICAL ALLERGIES. SOCIAL HISTORY: He has about a [id number] history of smoking, but quit smoking in 1982. REVIEW OF SYSTEMS: Only most notable for his frailty. PHYSICAL EXAMINATION: GENERAL: He is an elderly frail-appearing man. NECK: I am not able to appreciate any carotid bruits. CHEST: Actually fairly clear to auscultation. HEART: I hear no obvious murmurs. ABDOMEN: Soft and nontender. EXTREMITIES: Strength seems grossly normal. IMAGING STUDIES: His chest x-ray shows cardiomegaly and prominent pulmonary vasculature, both of which seem worse than even in October of 2018. He has sternal wires and an AICD in place. He has extensive aortic knob calcification. Echocardiography shows an LVEF now of 30% to 35%. His basilar wall remains akinetic. His apex is now dyskinetic. CT angiography shows extensive complex calcification in both carotid bulbs, and proximal internal carotids markedly worse than 6 years ago. Because of the complexity of the pattern of plaque, the degree of stenosis is very hard to assess particularly on coronal and sagittal reconstructions on the axial source images. I would estimate the left carotid stenosis to now be on the order of 80% to 90% and on the right to be about 60% to 70%. LABORATORY STUDIES: Also notable for a hemoglobin of 14.5, platelet count of 153,000. PT of 15.7, INR of 1.2, PTT 29.7. His BUN on admission was 43 and creatinine 1.78, glucose was 339. His albumin was 3.2, calcium 8.9. His electrolytes were normal. Overnight, his BUN has come down to 36 and his creatinine 1.29. He has remained afebrile. Heart rates have been in the 60 to 70 range, and blood pressures mostly in the 130 to 140 over 60 to 75 range. I's and O's appear to be incomplete with 850 mL of urine output being recorded over the plant operator/shift supervisor, but no record prior to that. His weight last night about 2300 was 157-1/4 pounds and then this morning was 154. IMPRESSION AND RECOMMENDATIONS: The patient has had a previous left hemispheric stroke and is now off antiplatelet therapy, had a left hemispheric event. Under typical circumstances, left carotid endarterectomy would be recommended as he appears to have a significant and symptomatic left carotid stenosis. At all hinges, however, upon the safety of performing endarterectomy under general anesthesia, the degree of calcification may make referral for stenting rather problematic and since his event has been associated with discontinuation of antiplatelet therapy, if he is considered too high risk for surgical management, I may simply recommend medical management. Cardiac catheterization to further evaluate cardiac risk is planned for tomorrow. Job ID: [id number]
[2019-03-28] MEDS: Atorvastatin Calcium 40 MG TAB PO SCH (21:12)
[2019-03-29 05:40] LABS: Anion Gap 13 mmol/L (10-20); BUN (Urea Nitrogen) 43 mg/dL (8.4-25.7); Calc. Creatinine Clearance 43 mL/min (70-130); Calcium 9.3 mg/dL (7.8-10.44); Carbon Dioxide 27 mmol/L (23-31); Chloride 100 mmol/L (98-107); Estimated GFR-MDRD 55; Glucose 285 mg/dL (83-110); Potassium 4.3 mmol/L (3.5-5.1); Sodium 136 mmol/L (136-145)
[2019-03-29] MEDS: Sodium Chloride 0.9% 1,000 ML IV SCH ×2 (05:40)
[2019-03-29] MEDS ORDERED: Furosemide 40 MG/4 ML VIAL SLOW IVP SCH (09:00)
[2019-03-29] MEDS: Digoxin 0.125 MG TAB PO SCH (10:35)
[2019-03-29] MEDS: Carvedilol 6.25 MG TAB PO SCH ×2 (10:35→22:58)
[2019-03-29] MEDS: Spironolactone 25 MG TAB PO SCH (10:35)
[2019-03-29] MEDS: Aspirin 325 mg Enteric Coated Tablet PO SCH (10:36)
[2019-03-29] MEDS: Sacubitril 49 MG/Valsartan 51 MG TABLET PO SCH ×2 (10:36→22:58)
[2019-03-29] MEDS: Famotidine 20 MG TAB PO SCH (10:36)
[2019-03-29] MEDS ORDERED: Iopamidol 370 76% 100 ML VIAL ONE (11:13)
[2019-03-29] MEDS ORDERED: Iopamidol 370 76% 50 ML VIAL FS ONE (11:13)
--- NOTE | 2019-03-29 12:36 | PRG ---
DATE OF SERVICE: 03/29/2019 SERVICE: Pulmonary Medicine. INTERVAL HISTORY: The patient is doing fine from a respiratory standpoint. He denies having any chest discomfort at this point. His energy is not back to normal yet. There were no overnight events. He had no fevers, chills, nausea, or vomiting. His appetite is good. PHYSICAL EXAMINATION: VITAL SIGNS: Afebrile, pulse 66, blood pressure 146/85, respirations 24, and saturation 97% currently on room air. GENERAL: The patient is awake and alert, in no apparent distress. LUNGS: Very good air entry. There is a slightly prolonged expiratory phase. Dependent crackles are minimal. HEART: Normal rate and regular. ABDOMEN: Soft, nontender, and nondistended. Bowel sounds are positive. MUSCULOSKELETAL: No cyanosis or clubbing. There is no pitting in the bilateral lower extremities. NEUROLOGIC: Grossly nonfocal. LABORATORY DATA: WBC 13.6, hemoglobin 15.3, platelets 193,000. Basic metabolic profile is unremarkable with a creatinine that is downtrending to 1.25. Troponin was previously downtrending to 8.7, BNP 1600, a recent high. Blood sugars ranged from 231 to 433. Blood cultures x2, urine culture unremarkable. IMAGING STUDIES: Echocardiogram shows 30% to 35% ejection fraction. Dyskinetic motion of the apical wall is noted on the left ventricle. There is akinesis of the basal inferior wall. Ibosdeud-hi-lsslyt tricuspid regurgitation is noted. ASSESSMENT: 1. Vhr-EU-gnyxluqfu myocardial infarction. 2. Acute on chronic systolic heart failure. 3. Carotid arterial disease, bilateral, critical. 4. Transient ischemic attack, resolved. 5. Recent cystoscopy with resection of cancer. DISCUSSION AND PLAN: The patient is doing wonderful from a respiratory standpoint. At this point, he is stable for transition out of the ICU to the telemetry unit. Pulmonary will continue to follow in this location, however. Job ID: [id number]
[2019-03-29] MEDS ORDERED: Heparin 10,000 UNITS/1 ML VIAL ONE (13:11)
[2019-03-29] MEDS ORDERED: Lidocaine 1% (PF) 30 ML VIAL ONE (13:11)
--- NOTE | 2019-03-29 13:21 | PDOC.PN ---
- Subjective Encounter Start Date: 03/29/19 Encounter Start Time: 07:20 Subjective: no chest pain or palp -: feels better, is npo for cath - Objective Resuscitation Status - Order Detail: 03/27/19 17:21 Resuscitation Status Routine Resuscitation Status: FULL: Full Resuscitation Discussed with: discussed with pt HOLLIS Reviewed: Yes Vital Signs & Weight: Vital Signs (12 hours) Temp Pulse BP Pulse Ox 03/29/19 11:45 98.0 F 03/29/19 10:35 66 146/85 H 03/29/19 08:00 98 03/29/19 07:07 98.6 F 03/29/19 04:00 99.4 F Weight Weight 157 lb 14.4 oz Most Recent Monitor Data Heart Rate from ECG 64 NIBP 146/85 NIBP BP-Mean 105 Respiration from ECG 24 SpO2 97 I&O: 03/28/19 03/29/19 03/30/19 06:59 06:59 06:59 Intake Total 314 2350 Output Total 850 1070 Balance -536 1280 Result Diagrams: 03/28/19 04:00 03/29/19 04:34 Additional Labs: Accuchecks 03/29/19 03/29/19 03/28/19 10:07 05:34 21:25 POC Glucose 246 H 250 H 231 H 03/28/19 16:27 POC Glucose 433 H Phys Exam - Physical Examination HEENT: PERRLA, moist MMs Neck: no JVD, supple Respiratory: no wheezing, no rales Cardiovascular: RRR, no significant murmur Gastrointestinal: soft, non-tender, positive bowel sounds Musculoskeletal: no edema, pulses present Neurological: non-focal, moves all 4 limbs Psychiatric: normal affect, A&O x 3 Dx/Plan (1) TIA (transient ischemic attack) Code(s): G45.9 - TRANSIENT CEREBRAL ISCHEMIC ATTACK, UNSPECIFIED Status: Acute (2) NSTEMI (non-ST elevated myocardial infarction) Code(s): I21.4 - NON-ST ELEVATION (NSTEMI) MYOCARDIAL INFARCTION Status: Acute (3) Acute exacerbation of CHF (congestive heart failure) Code(s): I50.9 - HEART FAILURE, UNSPECIFIED Status: Acute Qualifiers: Heart failure type: combined systolic and diastolic Qualified Code(s): I50.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 transplanted heart: [place] heart Associated angina: without angina Qualified Code(s): I25.810 - Atherosclerosis of coronary artery bypass graft(s) without angina pectoris (6) HTN (hypertension) Code(s): I10 - ESSENTIAL (PRIMARY) HYPERTENSION Status: Chronic Qualifiers: Hypertension type: essential hypertension Qualified Code(s): I10 - Essential (primary) hypertension (7) Ischemic cardiomyopathy Code(s): I25.5 - ISCHEMIC CARDIOMYOPATHY Status: Chronic (8) H/O: CVA (cerebrovascular accident) Code(s): Z86.73 - PRSNL HX OF TIA (TIA), AND CEREB INFRC W/O RESID DEFICITS Status: Chronic Comment: likely in the left occipital area in 2013 (9) Bladder cancer Status: Chronic - Plan for cath today -: continue asp, lipitor, coreg, dig, spironolactone -: ef has improved from prior is 35%, has wall motion abnormalities -: carotid stenosis per CTS adv -: hemostable * . Review of Systems - Medications/Allergies Allergies/Adverse Reactions: Allergies Allergy/AdvReac Type Severity Reaction Status Date / Time No Known Allergies Allergy Verified 03/17/19 10:53 Medications: Current Medications Acetaminophen (Tylenol) 650 mg PO Q4H PRN PRN Reason: Headache/Fever/Mild Pain (1-3) Aspirin (Ecotrin) 325 mg PO DAILY [facility] Last Admin: 03/29/19 10:36 Dose: Not Given Atorvastatin Calcium (Lipitor) 80 mg PO HS [facility] Last Admin: 03/28/19 21:12 Dose: 80 mg Bisacodyl (Dulcolax) 10 mg PO DAILYPRN PRN PRN Reason: Constipation Carvedilol (Coreg) 12.5 mg PO BID-WM [facility] Last Admin: 03/29/19 10:35 Dose: 12.5 mg Dextrose/Water (Dextrose 50%) 25 gm SLOW IVP PRN PRN PRN Reason: Hypoglycemia Last Admin: 03/28/19 05:18 Dose: 25 gm Digoxin (Lanoxin) 0.125 mg PO DAILY [facility] Last Admin: 03/29/19 10:35 Dose: 0.125 mg Famotidine (Pepcid) 20 mg PO DAILY [facility] Last Admin: 03/29/19 10:36 Dose: 20 mg Furosemide (Lasix) 40 mg SLOW IVP DAILY [facility] Stop: 03/30/19 09:01 Glucagon (Glucagon) 1 mg IM PRN PRN PRN Reason: Hypoglycemia Guaifenesin (Robitussin Sf) 200 mg PO Q4H PRN PRN Reason: Cough Hydralazine HCl (Apresoline) 10 mg SLOW IVP Q4H PRN PRN Reason: SBP > 180 and HR < 70 Dextrose/Water (D5w) 1,000 mls @ 0 mls/hr IV .Q0M PRN PRN Reason: Hypoglycemia Sodium Chloride (Normal Saline 0.9%) 1,000 mls @ 100 mls/hr IV .Q10H [facility] Last Admin: 03/29/19 05:40 Dose: 1,000 mls Miscellaneous Information (Communication Order-Pharmacy) 0 each FS 1200 [facility] Last Admin: 03/28/19 12:44 Dose: 1 each Nitroglycerin (Nitrostat) 0.4 mg SL Q5MIN PRN PRN Reason: Chest Pain Ondansetron HCl (Zofran) 4 mg IVP Q6H PRN PRN Reason: Nausea/Vomiting Sacubitril/Valsartan (Entresto 49 Mg-51 Mg Tablet) 1 tab PO BID [facility] Last Admin: 03/29/19 10:36 Dose: 1 tab Senna/Docusate Sodium (Senokot S) 2 tab PO BID PRN PRN Reason: Constipation Sodium Chloride (Flush - Normal Saline) 10 ml IVF PRN PRN PRN Reason: Saline Flush Last Admin: 03/28/19 05:19 Dose: 10 ml Spironolactone (Aldactone) 25 mg PO QAM-WM [facility] Last Admin: 03/29/19 10:35 Dose: 25 mg
--- NOTE | 2019-03-29 13:50 | PQF ---
ROX LOYA, JACE PETERSON MD [id number] [facility]- B10 [id number] CLINICAL DOCUMENTATION IMPROVEMENT CLARIFICATION FORM: ICD-10 Updated PLEASE DO AN ADDENDUM TO THE PROGRESS NOTE WITH ANY DOCUMENTATION UPDATES OR ADDITIONS AND CARRY THROUGH TO DC SUMMARY. THANK YOU. DATE: 03/29 ATTN: DR. Farrukh GREGORIO Please exercise your independent, professional judgment in responding to the clarification form. Clinical indicators are provided on the bottom of this form for your review. Please check appropriate box(s): [ x ] Acute Renal Failure (ARF) / Acute Kidney Injury (KELLY) [ ] Acute on Chronic Renal Failure please specify Stage of CKD (see below) [ ] CKD without ARF/KELLY please specify Stage of CKD [ ] Other diagnosis [ ] Unable to determine In addition, please specify: Present on Admission (POA): [ x] Yes [ ] No [ ] Unable to determine National Kidney Foundation Guidelines for CKD Staging Stage I Kidney damage with normal or increased GFR GFR > 90 Stage II Kidney damage with mildly decreased GFR GFR 60-89 Stage III Kidney damage with moderately decreased GFR GFR 30-59 Stage IV Kidney damage with severely decreased GFR GFR 16-29 Stage V Kidney failure GFR<15 ESRD End Stage Renal Disease On dialysis Acute Renal Failure/Acute Kidney Failure defined as: Increases in SCr by (>) 0.3 mg/dl within 48 hours OR- Increases in SCr by (>) 1.5 times baseline, known or presumed to have occurred within the prior 7 days OR- Urine volume < 0.5 ml/kg/hour for 6 hours (KDIGO supplement 2012 for RIFLE/MELINDA criteria) For continuity of documentation, please document condition throughout progress notes and discharge summary. Thank You. CLINICAL INDICATORS - SIGNS / SYMPTOMS / LABS BUN: 43 CR: 1.78 GFR: 37 (03/27) 36 1.29 53 (03/28) 43 1.25 55 (03/29) ER PHYSICIAN DOCUMENTATION 03/27: CKD H&P (NEELAM) 03/27: LAB EXAM: BUN 43, CR 1.78 W/ LAST BASELINE IN OUR FACILITY AROUND 1.14 ON 03/17/19 CARDIOLOGY CONSULT (REMY) 03/27: PLAN: HIS CR WILL BE FOLLOWED VERY CLOSELY W/ THE PATIENT JUST RECEIVING 2 DYE LOADS W/ HEAD CT & [place] RISKS: ACUTE ON CHRONIC SYSTOLIC CHF (H&P, 03/27) RECENT DYE LOAD FOR HEAD CT & [place] (03/27) IV DIURETIC (LASIX 03/27 - ) TREATMENT: SERIAL LABS TO MONITOR BUN/CR (03/27 - PRESENT) THANK YOU! Kate (This form is maintained as a part of the permanent medical record) 2015 [email or web address]. All Rights Reserved Kate Reed RN, BSN [email or web address] Office: [phone] [facility] INSANEJenni
[2019-03-29] MEDS ORDERED: Fentanyl 100 MCG/2 ML VIAL ONE (15:27)
[2019-03-29] MEDS ORDERED: Midazolam HCl 2 mg/2 ml Vial ONE (15:27)
[2019-03-29] MEDS ORDERED: Bivalirudin 250 MG VIAL ONE (15:56)
[2019-03-29] MEDS: Communication Order-Pharmacy FS SCH (16:06)
[2019-03-29] MEDS ORDERED: Clopidogrel Bisulfate 300 MG TAB ONE (16:15)
[2019-03-29] MEDS ORDERED: Sodium Chloride 0.9% 1,000 ML IV SCH (16:34)
[2019-03-29] MEDS ORDERED: HYDROcodone/Acetaminophen 7.5/325 mg Tablet PO SCH (22:45)
[2019-03-29] MEDS: Atorvastatin Calcium 40 MG TAB PO SCH (22:58)
[2019-03-30] MEDS: Sodium Chloride 0.9% 1,000 ML IV SCH (02:05)
[2019-03-30 05:35] LABS: #Eosinphils 0.3 thou/uL (0.0-0.7); #Lymphocytes 1.5 thou/uL (1.20-3.40); #Monocytes 1.5 thou/uL (0.11-0.59); #Neutrophils 6.8 thou/uL (1.40-6.50); %Basophils 0.4 % (0.0-1.0); %Eosinophils 2.8 % (0.0-10.0); %Lymphocytes 15.2 % (21.0-51.0); %Monocytes 14.4 % (0.0-10.0); %Neutrophils 67.1 % (42.0-75.0); Hemoglobin 16.1 g/dL (14.0-18.0); Mean Corpuscular HGB CONC 32.1 g/dL (32.0-36.0); Mean Corpuscular Hemoglobin 31.1 pg (27.0-31.0); Mean Platelet Volume 8.3 fL (7.4-10.4); Platelet Count 212 thou/uL (130-400); RBC Distribution Width 12.9 % (11.5-14.5); Red Blood Cell (RBC) Count 5.18 mill/uL (4.70-6.10); White Blood Cell (WBC) Count 10.1 thou/uL (4.8-10.8)
[2019-03-30 07:08] LABS: ALT (SGPT) 20 U/L (8-55); AST (SGOT) 12 U/L (5-34); Alkaline Phosphatase 72 U/L (40-150); BUN (Urea Nitrogen) 28 mg/dL (8.4-25.7); Bilirubin, Total 1.4 mg/dL (0.2-1.2); Calc. Creatinine Clearance 56 mL/min (70-130); Calcium 9.5 mg/dL (7.8-10.44); Carbon Dioxide 27 mmol/L (23-31); Chloride 103 mmol/L (98-107); Estimated GFR-MDRD 72; Glucose 313 mg/dL (83-110); Potassium 4.6 mmol/L (3.5-5.1); Sodium 136 mmol/L (136-145)
[2019-03-30 07:15] LABS: Anion Gap 11 mmol/L (10-20)
[2019-03-30] MEDS: Aspirin 325 mg Enteric Coated Tablet PO SCH (08:44)
[2019-03-30] MEDS: Aspirin Chewable 81 MG TAB PO SCH (08:46)
[2019-03-30] MEDS: Clopidogrel Bisulfate 75 MG TAB PO SCH (08:46)
[2019-03-30] MEDS: Digoxin 0.125 MG TAB PO SCH (08:46)
[2019-03-30] MEDS: Sacubitril 49 MG/Valsartan 51 MG TABLET PO SCH ×2 (08:46→20:59)
[2019-03-30] MEDS: Spironolactone 25 MG TAB PO SCH (08:46)
[2019-03-30] MEDS: Famotidine 20 MG TAB PO SCH (08:46)
[2019-03-30] MEDS: Carvedilol 6.25 MG TAB PO SCH ×2 (08:46→16:26)
[2019-03-30] MEDS ORDERED: Furosemide 40 MG/4 ML VIAL SLOW IVP SCH (09:00)
[2019-03-30] MEDS: Communication Order-Pharmacy FS SCH (09:34)
[2019-03-30] MEDS ORDERED: HumaLOG 300 UNITS/3 ML VIAL SC PRN (10:47)
--- NOTE | 2019-03-30 11:11 | PDOC.PN ---
- Subjective Encounter Start Date: 03/30/19 Encounter Start Time: 09:00 Subjective: no chest pain or palp -: ate his breakfast, is sitting in chair - Objective Resuscitation Status - Order Detail: 03/27/19 17:21 Resuscitation Status Routine Resuscitation Status: FULL: Full Resuscitation Discussed with: discussed with pt HOLLIS Reviewed: Yes Vital Signs & Weight: Vital Signs (12 hours) Temp Pulse Pulse Resp BP BP BP 03/30/19 09:00 63 148/73 H 03/30/19 08:46 63 150/75 H 03/30/19 08:00 97.7 F 63 16 150/71 H 03/30/19 03:51 98.1 F 66 16 134/68 Pulse Ox 03/30/19 09:00 03/30/19 08:46 03/30/19 08:00 94 L 03/30/19 03:51 92 L Weight Weight 157 lb 14.4 oz Most Recent Monitor Data Heart Rate from ECG 63 NIBP 142/69 NIBP BP-Mean 93 Respiration from ECG 20 SpO2 99 I&O: 03/29/19 03/30/19 03/31/19 06:59 06:59 06:59 Intake Total 2350 320 300 Output Total 1070 400 Balance 1280 -80 300 Result Diagrams: 03/30/19 04:32 03/30/19 06:34 Additional Labs: Accuchecks 03/30/19 03/30/19 03/28/19 10:23 05:54 16:27 POC Glucose 393 H 300 H 433 H Phys Exam - Physical Examination HEENT: PERRLA, moist MMs Neck: no JVD, supple Respiratory: no wheezing, no rales Cardiovascular: RRR, no significant murmur Gastrointestinal: soft, non-tender, positive bowel sounds Musculoskeletal: no edema, pulses present Neurological: non-focal, moves all 4 limbs Psychiatric: normal affect, A&O x 3 Dx/Plan (1) TIA (transient ischemic attack) Code(s): G45.9 - TRANSIENT CEREBRAL ISCHEMIC ATTACK, UNSPECIFIED Status: Acute (2) NSTEMI (non-ST elevated myocardial infarction) Code(s): I21.4 - NON-ST ELEVATION (NSTEMI) MYOCARDIAL INFARCTION Status: Acute Comment: s/p bare metal stent to LAD (3) Acute exacerbation of CHF (congestive heart failure) Code(s): I50.9 - HEART FAILURE, UNSPECIFIED Status: Acute Qualifiers: Heart failure type: combined systolic and diastolic Qualified Code(s): I50.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 transplanted heart: [place] heart Associated angina: without angina Qualified Code(s): I25.810 - Atherosclerosis of coronary artery bypass graft(s) without angina pectoris (6) HTN (hypertension) Code(s): I10 - ESSENTIAL (PRIMARY) HYPERTENSION Status: Chronic Qualifiers: Hypertension type: essential hypertension Qualified Code(s): I10 - Essential (primary) hypertension (7) Ischemic cardiomyopathy Code(s): I25.5 - ISCHEMIC CARDIOMYOPATHY Status: Chronic (8) H/O: CVA (cerebrovascular accident) Code(s): Z86.73 - PRSNL HX OF TIA (TIA), AND CEREB INFRC W/O RESID DEFICITS Status: Chronic Comment: likely in the left occipital area in 2013 (9) Bladder cancer Status: Chronic - Plan hemostable -: meds are being optimized -: dc plan per cardiology adv -: will need swing bed in [place] x 1 week -: continue asp, lipitor,coreg, dig, spironolactone and entresto * . Review of Systems - Medications/Allergies Allergies/Adverse Reactions: Allergies Allergy/AdvReac Type Severity Reaction Status Date / Time No Known Allergies Allergy Verified 03/17/19 10:53 Medications: Current Medications Acetaminophen (Tylenol) 650 mg PO Q4H PRN PRN Reason: Headache/Fever/Mild Pain (1-3) Aspirin (Ecotrin) 325 mg PO DAILY [facility] Last Admin: 03/30/19 08:44 Dose: Not Given Aspirin (Aspirin Chewable) 81 mg PO DAILY [facility] Last Admin: 03/30/19 08:46 Dose: 81 mg Atorvastatin Calcium (Lipitor) 80 mg PO HS [facility] Last Admin: 03/29/19 22:58 Dose: 80 mg Bisacodyl (Dulcolax) 10 mg PO DAILYPRN PRN PRN Reason: Constipation Carvedilol (Coreg) 12.5 mg PO BID-[facility] Last Admin: 03/30/19 08:46 Dose: 12.5 mg Clopidogrel Bisulfate (Plavix) 75 mg PO DAILY [facility] Last Admin: 03/30/19 08:46 Dose: 75 mg Dextrose/Water (Dextrose 50%) 25 gm SLOW IVP PRN PRN PRN Reason: Hypoglycemia Last Admin: 03/28/19 05:18 Dose: 25 gm Digoxin (Lanoxin) 0.125 mg PO DAILY [facility] Last Admin: 03/30/19 08:46 Dose: 0.125 mg Famotidine (Pepcid) 20 mg PO DAILY [facility] Last Admin: 03/30/19 08:46 Dose: 20 mg Finasteride (Proscar) 5 mg PO DAILY [facility] Glucagon (Glucagon) 1 mg IM PRN PRN PRN Reason: Hypoglycemia Guaifenesin (Robitussin Sf) 200 mg PO Q4H PRN PRN Reason: Cough Hydralazine HCl (Apresoline) 10 mg SLOW IVP Q4H PRN PRN Reason: SBP > 180 and HR < 70 Dextrose/Water (D5w) 1,000 mls @ 0 mls/hr IV .Q0M PRN PRN Reason: Hypoglycemia Insulin Human Isoph/Insulin Regular (Humulin 70/30) 0 units SC BID [facility] Insulin Human Lispro (Humalog) 0 units SC .MODERATE SLIDING SC PRN PRN Reason: Moderate Correctional Scale Insulin Human Lispro (Humalog) 0 units SC .BEDTIME SLIDING SC PRN PRN Reason: Bedtime Correctional Scale Levothyroxine Sodium (Synthroid) 25 mcg PO 0600 [facility] Miscellaneous Information (Communication Order-Pharmacy) 0 each FS 1200 [facility] Last Admin: 03/30/19 09:34 Dose: Not Given Nitroglycerin (Nitrostat) 0.4 mg SL Q5MIN PRN PRN Reason: Chest Pain Ondansetron HCl (Zofran) 4 mg IVP Q6H PRN PRN Reason: Nausea/Vomiting Sacubitril/Valsartan (Entresto 49 Mg-51 Mg Tablet) 1 tab PO BID [facility] Last Admin: 03/30/19 08:46 Dose: 1 tab Senna/Docusate Sodium (Senokot S) 2 tab PO BID PRN PRN Reason: Constipation Sodium Chloride (Flush - Normal Saline) 10 ml IVF PRN PRN PRN Reason: Saline Flush Last Admin: 03/28/19 05:19 Dose: 10 ml Spironolactone (Aldactone) 25 mg PO QAM-WM [facility] Last Admin: 03/30/19 08:46 Dose: 25 mg Tamsulosin HCl (Flomax) 0.4 mg PO DAILY [facility] Tolterodine Tartrate (Detrol) 2 mg PO BID [facility]
[2019-03-30] MEDS: HumaLOG 300 UNITS/3 ML VIAL SC PRN ×2 (11:15→16:26)
--- NOTE | 2019-03-30 20:30 | PRG ---
DATE OF SERVICE: 03/30/2019 SERVICE: Pulmonary Medicine. INTERVAL HISTORY: The patient is doing great from Respiratory standpoint. He has been weaned down to room air. Actually, he is currently on room air. He denies any current chest pain, fevers, or chills. His strength is improving. PHYSICAL EXAMINATION: VITAL SIGNS: Afebrile, pulse 62, blood pressure 150/75, respirations 16, and saturation 95% on room air. GENERAL: The patient is awake and alert, in no apparent distress. LUNGS: Decent air entry. Minimal dependent crackles are present. There is no prolonged expiratory phase or wheezing appreciated. HEART: Normal rate and regular. ABDOMEN: Soft, nontender, and nondistended. Bowel sounds are positive. MUSCULOSKELETAL: No cyanosis or clubbing. No pitting in the bilateral lower extremities. NEUROLOGIC: Grossly nonfocal. LABORATORY DATA: WBC 10.1, hemoglobin 16.1, and platelets 212,000. Creatinine 0.99. Basic metabolic profile and liver function studies are otherwise unremarkable except for a total bilirubin of 1.4, roughly stable. Blood cultures x2 and urine cultures negative to date. IMAGING: Echocardiogram demonstrates 30% to 35% ejection fraction. Multiple wall abnormalities are identified. [id number] tricuspid regurgitation and moderate mitral regurgitation are present. ASSESSMENT: 1. Ieq-XM-vaoyhrqgr myocardial infarction. 2. Acute on chronic systolic heart failure. 3. Carotid arterial disease, bilaterally and critical. 4. Transient ischemic attack, resolved. 5. Recent cystoscopy with resection of cancer. DISCUSSION AND PLAN: This patient is doing fine from Respiratory standpoint. At this point, he has no further requirements for inpatient Pulmonary or Critical Care opinion. As such, I will sign off. Please call with additional questions or concerns through time. Job ID: [id number]
[2019-03-30] MEDS: Atorvastatin Calcium 40 MG TAB PO SCH (20:59)
[2019-03-30] MEDS ORDERED: Non-Formulary Item 1 EACH (Simvastatin [Zocor] 80 MG) PO SCH (21:00)
[2019-03-30] MEDS ORDERED: HumuLIN 70/30 (300 UNITS/3 ML VIAL) SC SCH (21:00)
[2019-03-31] MEDS ORDERED: Levothyroxine Sodium 25 MCG TAB PO SCH (06:00)
[2019-03-31] MEDS: HumaLOG 300 UNITS/3 ML VIAL SC PRN ×2 (06:50→11:38)
[2019-03-31] MEDS ORDERED: HumuLIN 70/30 (300 UNITS/3 ML VIAL) SC SCH (06:54)
[2019-03-31] MEDS ORDERED: Finasteride 5 MG TAB PO SCH (09:00)
[2019-03-31] MEDS ORDERED: Trospium 20 MG TAB PO SCH (09:00)
[2019-03-31] MEDS ORDERED: Tamsulosin HCl 0.4 MG CAP PO SCH (09:00)
[2019-03-31 09:27] LABS: Anion Gap 12 mmol/L (10-20); BUN (Urea Nitrogen) 26 mg/dL (8.4-25.7); Calc. Creatinine Clearance 55 mL/min (70-130); Calcium 9.3 mg/dL (7.8-10.44); Carbon Dioxide 27 mmol/L (23-31); Chloride 101 mmol/L (98-107); Estimated GFR-MDRD 70; Glucose 244 mg/dL (83-110); Potassium 4.2 mmol/L (3.5-5.1); Sodium 136 mmol/L (136-145)
[2019-03-31] MEDS: Clopidogrel Bisulfate 75 MG TAB PO SCH (09:32)
[2019-03-31] MEDS: Aspirin Chewable 81 MG TAB PO SCH (09:32)
[2019-03-31] MEDS: Digoxin 0.125 MG TAB PO SCH (09:32)
[2019-03-31] MEDS: Spironolactone 25 MG TAB PO SCH (09:32)
[2019-03-31] MEDS: Carvedilol 6.25 MG TAB PO SCH (09:33)
[2019-03-31] MEDS: Sacubitril 49 MG/Valsartan 51 MG TABLET PO SCH (09:33)
[2019-03-31] MEDS: Famotidine 20 MG TAB PO SCH (09:33)
[2019-03-31] MEDS: Communication Order-Pharmacy FS SCH (11:34)
--- NOTE | 2019-03-31 11:46 | PDOC.PN ---
- Subjective Encounter Start Date: 03/31/19 Encounter Start Time: 09:20 Subjective: sitting in chair, ate his breakfast, feels good -: is amb with PT well - Objective Resuscitation Status - Order Detail: 03/27/19 17:21 Resuscitation Status Routine Resuscitation Status: FULL: Full Resuscitation Discussed with: discussed with pt MAR Reviewed: Yes Vital Signs & Weight: Vital Signs (12 hours) Temp Pulse Pulse Resp BP BP Pulse Ox 03/31/19 09:32 65 03/31/19 08:55 66 156/57 H 03/31/19 08:00 92 L 03/31/19 07:38 97.9 F 65 18 137/54 L 92 L 03/31/19 03:42 97.7 F 63 18 143/67 H 95 Pulse Ox 03/31/19 09:32 03/31/19 08:55 96 03/31/19 08:00 03/31/19 07:38 03/31/19 03:42 Weight Weight 157 lb 14.4 oz Most Recent Monitor Data Heart Rate from ECG 63 NIBP 142/69 NIBP BP-Mean 93 Respiration from ECG 20 SpO2 99 I&O: 03/30/19 03/31/19 04/01/19 06:59 06:59 06:59 Intake Total 320 1100 550 Output Total 400 600 Balance -80 500 550 Result Diagrams: 03/30/19 04:32 03/31/19 08:58 Additional Labs: Accuchecks 03/31/19 03/31/19 03/30/19 10:43 05:59 19:37 POC Glucose 286 H 263 H 445 H 03/30/19 16:19 POC Glucose 360 H Phys Exam - Physical Examination HEENT: PERRLA, moist MMs Neck: no JVD, supple Respiratory: no wheezing, no rales Cardiovascular: RRR, no significant murmur Gastrointestinal: soft, non-tender, positive bowel sounds Musculoskeletal: no edema, pulses present Neurological: non-focal, moves all 4 limbs Psychiatric: A&O x 3 Dx/Plan (1) TIA (transient ischemic attack) Code(s): G45.9 - TRANSIENT CEREBRAL ISCHEMIC ATTACK, UNSPECIFIED Status: Resolved (2) NSTEMI (non-ST elevated myocardial infarction) Code(s): I21.4 - NON-ST ELEVATION (NSTEMI) MYOCARDIAL INFARCTION Status: Acute Comment: s/p bare metal stent to LAD (3) Acute exacerbation of CHF (congestive heart failure) Code(s): I50.9 - HEART FAILURE, UNSPECIFIED Status: Acute Qualifiers: Heart failure type: combined systolic and diastolic Qualified Code(s): I50.43 - Acute on chronic combined systolic (congestive) and diastolic ( congestive) heart failure Comment: ef of 30%, class C (4) Carotid artery stenosis Code(s): I65.29 - OCCLUSION AND STENOSIS OF UNSPECIFIED CAROTID ARTERY Status : Acute Qualifiers: Laterality: bilateral Qualified Code(s): I65.23 - Occlusion and stenosis of bilateral carotid arteries Comment: for med mgmt now, high dose statin, asp, plavix (5) CAD (coronary artery disease) Code(s): I25.10 - ATHSCL HEART DISEASE OF [place] CORONARY ARTERY W/O ANG PCTRS Status: Chronic Qualifiers: Coronary Disease-Associated Artery/Lesion type: bypass graft [place] vs. transplanted heart: [place] heart Associated angina: without angina Qualified Code(s): I25.810 - Atherosclerosis of coronary artery bypass graft(s) without angina pectoris (6) HTN (hypertension) Code(s): I10 - ESSENTIAL (PRIMARY) HYPERTENSION Status: Chronic Qualifiers: Hypertension type: essential hypertension Qualified Code(s): I10 - Essential (primary) hypertension (7) Ischemic cardiomyopathy Code(s): I25.5 - ISCHEMIC CARDIOMYOPATHY Status: Chronic (8) H/O: CVA (cerebrovascular accident) Code(s): Z86.73 - PRSNL HX OF TIA (TIA), AND CEREB INFRC W/O RESID DEFICITS Status: Chronic Comment: likely in the left occipital area in 2013 (9) Bladder cancer Status: Chronic - Plan hemostable -: may dc pt to [facility] -: is on high int statin, asp, plavix * .
[2019-03-31 11:52] VITALS: BP 118/60; TEMP 98.4
--- NOTE | 2019-03-31 15:40 | DIS ---
DATE OF ADMISSION: 03/27/2019 DATE OF DISCHARGE: 03/31/2019 DISCHARGE DISPOSITION: [facility] bed. PRIMARY DISCHARGE DIAGNOSES: 1. Initial TIA, resolved. 2. Coronary artery disease, status post bare-metal stent placed to mid LAD. 3. Non-ST elevation myocardial infarction. 4. Acute exacerbation of congestive heart failure, class C with EF of 30% and systolic dysfunction. 5. Critical carotid artery stenosis, for medical management for now. SECONDARY DISCHARGE DIAGNOSES: 1. Ischemic cardiomyopathy. 2. Hypertension. 3. History of prior cerebrovascular accident in the left occipital area in 2012. 4. History of bladder cancer with recent cystoscopy and fulguration. PROCEDURES DONE DURING HOSPITALIZATION: 1. Chest x-ray done showed cardiomegaly with pulmonary vascular congestion. 2. CT angio of brain and neck showed critical bilateral proximal internal carotid artery stenosis. No significant abnormality involving CTA brain. 3. CT brain without contrast done showed no evidence of intracranial hemorrhage or mass effect. 4. Echo with 2D Doppler showed an EF of 30% to 35%, dyskinetic motion of the apical wall and akinetic motion of the inferior wall of left ventricle, moderate to severe tricuspid regurgitation, moderate mitral regurgitation. 5. Coronary angiogram done by Dr. Vaca on 03/29/2019 showed 3-vessel coronary artery disease, 0/3 bypass grafts were patent, severely impaired ventricular function, successful PCI/bare-metal stent of mid LAD. 6. Blood cultures x2, no growth. Urine culture, no growth. H and H 16 and 50. Platelet count 212. MCV is 97. BUN 26. Creatinine 1.0. BNP 1653. Troponin I was elevated peaking up to 11.44. CK-MB 5.7. Initial BUN and creatinine were 43 and 1.7. DISCHARGE MEDICATIONS: 1. Aspirin 81 mg p.o. daily. 2. Plavix 75 mg p.o. daily. 3. Entresto 49/51 mg 1 tablet twice daily. 4. Flomax 0.4 mg daily. 5. Ultram p.r.n. for pain. 6. Proscar 5 mg p.o. daily. 7. Atorvastatin 80 mg p.o. at bedtime. 8. Detrol 2 mg p.o. twice daily. 9. Spironolactone 25 mg daily. 10. Synthroid 25 mcg p.o. daily. 11. 70/30 insulin 30 units subcu twice daily. 12. Folic acid with multivitamin 1 tablet once daily. 13. Digoxin 0.125 mg p.o. daily. 14. Coreg 12.5 mg p.o. twice daily. ALLERGIES: NO KNOWN DRUG ALLERGIES. INPATIENT CONSULTS: 1. Dr. Vaca for Cardiology. 2. Dr. Gómez for Neurology. 3. Dr. Johnson for Pulmonary Critical Care. BRIEF COURSE DURING HOSPITALIZATION: The patient initially got admitted on the with complaints of slurred speech and weakness. Initially, he was thought to have had TIA. Please see the admitting H and P dictated by Dr. Bolivar on 2018. The patient also had elevated troponin which peaked at around 11. He has had consultation with Dr. Vaca. He was taken to cardiac cath after his neurologic symptoms completely resolved. The patient was found to have had 3-vessel coronary artery disease and has had bare-metal stent placed to mid LAD. He was initially admitted to IM, later downgraded to stroke unit. Mr. Alvin Perry was also found to have had critical carotid artery stenosis with calcification. He was evaluated by Dr. Hicks. The patient is for medical management per cardiothoracic surgeon. In view of this, he was placed on Lipitor at 80 mg high-intensity statin along with aspirin and Plavix. The patient has done remarkably well during his stay here. He is actually participating with physical therapy. Due to deconditioning and 83 years of age, he is being discharged to swing bed in [place] for further recuperation prior to going home. His medications were optimized. He is on increased dose of Entresto as well. A total of 35 minutes was spent on discharge plan. Please see a [id number] documentation for the day of discharge on [employer]. Job ID: [id number] MTDD
== END 2019-03-31 15:10 | disposition swing bed (61) | DRG 248 ==
LOC: ERS 12:04 → IMCU/EMU 15:38 → 2SE 03-29 23:44
PROVIDERS: ADMIT Internal Medicine; ATTEND Internal Medicine
PROC: 02703EZ Dilation of Coronary Artery, One Artery with Two Intraluminal Devices, Percutaneous Approach (ICD-10-PCS; principal; 2019-03-29)
PROC: 4A023N7 Measurement of Cardiac Sampling and Pressure, Left Heart, Percutaneous Approach (ICD-10-PCS; 2019-03-29)
PROC: B2131ZZ Fluoroscopy of Multiple Coronary Artery Bypass Grafts using Low Osmolar Contrast (ICD-10-PCS; 2019-03-29)
PROC: B2151ZZ Fluoroscopy of Left Heart using Low Osmolar Contrast (ICD-10-PCS; 2019-03-29)
PROC: B2111ZZ Fluoroscopy of Multiple Coronary Arteries using Low Osmolar Contrast (ICD-10-PCS; 2019-03-29)
DX: I21.4 Non-ST elevation (NSTEMI) myocardial infarction (principal); I50.23 Acute on chronic systolic (congestive) heart failure; G81.91 Hemiplegia, unspecified affecting right dominant side; N17.9 Acute kidney failure, unspecified; I13.0 Hypertensive heart and chronic kidney disease with heart failure and stage 1 through stage 4 chronic kidney disease, or unspecified chronic kidney disease; I25.10 Atherosclerotic heart disease of native coronary artery without angina pectoris; I65.23 Occlusion and stenosis of bilateral carotid arteries; I25.5 Ischemic cardiomyopathy; E11.65 Type 2 diabetes mellitus with hyperglycemia; E11.51 Type 2 diabetes mellitus with diabetic peripheral angiopathy without gangrene; N18.9 Chronic kidney disease, unspecified; E11.22 Type 2 diabetes mellitus with diabetic chronic kidney disease; Z79.4 Long term (current) use of insulin; Z79.82 Long term (current) use of aspirin; Z79.899 Other long term (current) drug therapy; Z79.01 Long term (current) use of anticoagulants; Z95.810 Presence of automatic (implantable) cardiac defibrillator; Z79.02 Long term (current) use of antithrombotics/antiplatelets; Z87.891 Personal history of nicotine dependence; Z85.51 Personal history of malignant neoplasm of bladder
CPT/HCPCS: 36415; 36416; 70450; 70496; 70498; 71045; 74420; 80048; 80053; 80061; 81003; 81015; 82553; 83605; 83880; 84484; 85025; 85347; 85610; 85730; 87040; 87086; 88305; 92928; 93005; 93010; 93306; 93459; 93798; 96374; 99152; 99153; C1758; C1769; C1876; C1887; G0378; J0583; J1644; J1650; J1815; J1940; J1956; J2001; J2250; J2405; J2704; J3010; J3490; J7620; Q9966; Q9967; S0028

== ENCOUNTER 2020-09-30 18:50 | Emergency (ER) | payer MEDICARE, BC ==
--- NOTE | 2020-09-30 19:39 | RAD ---
RADIOGRAPH CHEST 1 VIEW: DATE: 09/30/2020 TIME: 7:33 PM HISTORY: 85-year-old male with generalized weakness COMPARISON: 08/28/2020 FINDINGS: Cardiomegaly. Diffuse mild pulmonary vascular engorgement. Sternotomy wires. AICD with left-sided generator which obscures much of the left mid and upper lung zones. No pneumothorax identified. Bilateral pleural effusions. Right pleural effusion and associated right basilar atelectasis appear s imilar to prior study. There has been interval decrease in volume of left pleural effusion with improved aeration of left christiano ng base. No other interval change. IMPRESSION: 1) bilateral pleural effusions and underlying bibasilar atelectasis, unchanged on right and improved on left. 2) are likely.
[2020-09-30 20:14] LABS: #Eosinphils 0.1 thou/uL (0.0-0.7); #Lymphocytes 1.1 thou/uL (1.20-3.40); #Monocytes 1.2 thou/uL (0.11-0.59); #Neutrophils 7.4 thou/uL (1.40-6.50); %Basophils 0.2 % (0.0-1.0); %Eosinophils 0.5 % (0.0-10.0); %Lymphocytes 11.4 % (21.0-51.0); %Monocytes 11.8 % (0.0-10.0); %Neutrophils 76.1 % (42.0-75.0); Hemoglobin 14.6 g/dL (14.0-18.0); Mean Corpuscular HGB CONC 32.1 g/dL (32.0-36.0); Mean Corpuscular Hemoglobin 30.2 pg (27.0-31.0); Mean Corpuscular Volume 94.3 fL (78.0-98.0); Mean Platelet Volume 8.9 fL (7.4-10.4); Platelet Count 162 thou/uL (130-400); RBC Distribution Width 13.2 % (11.5-14.5); Red Blood Cell (RBC) Count 4.81 mill/uL (4.70-6.10); White Blood Cell (WBC) Count 9.7 thou/uL (4.8-10.8)
[2020-09-30 20:29] LABS: ALT (SGPT) 23 U/L (8-55); AST (SGOT) 29 U/L (5-34); Albumin 3.9 g/dL (3.4-4.8); Alkaline Phosphatase 97 U/L (40-110); Anion Gap 20 mmol/L (10-20); BUN (Urea Nitrogen) 34 mg/dL (8.4-25.7); Bilirubin, Total 0.6 mg/dL (0.2-1.2); Calc. Creatinine Clearance 0 mL/min (70-130); Calcium 9.5 mg/dL (7.8-10.44); Carbon Dioxide 24 mmol/L (23-31); Chloride 99 mmol/L (98-107); Globulin 3.7 g/dL (2.4-3.5); Glucose 253 mg/dL (83-110); Potassium 4.5 mmol/L (3.5-5.1); Protein, Total 7.6 g/dL (5.8-8.1); Sodium 138 mmol/L (136-145)
[2020-09-30 20:50] LABS: CKMB 3.7 ng/mL (0-6.6)
[2020-09-30 22:32] LABS: Bacteria/HPF None Seen HPF (None Seen); Bilirubin Negative (Negative); Blood, Urine Trace (Negative); Clarity Clear (Clear); Glucose, Urine (Dipstick) Normal (Negative); Ketone, Urine Negative (Negative); Leukocyte Negative Leu/uL (Negative); Nitrite Negative (Negative); Protein, Urine (Dipstick) 50 mg/dL (Neg-Trace); Squamous Epithelial 0-3 HPF (0-3); Urobilinogen Normal mg/dL (Less than 2); pH, Urine 5.5 (5.0-9.0)
== END 2020-10-01 | disposition home or self-care (01) ==
LOC: ERS 18:50
DX: N39.0 Urinary tract infection, site not specified (principal); E11.9 Type 2 diabetes mellitus without complications
CPT/HCPCS: 36415; 71045; 80053; 81003; 81015; 82553; 84484; 85025; 93005

== ENCOUNTER 2020-10-05 14:24 | Inpatient (IN) | payer BC, MEDICARE ==
--- NOTE | 2020-10-05 15:26 | RAD ---
PORTABLE CHEST: 10/05/20 HISTORY: Dyspnea. COMPARISON: 09/30/20 exam. Heart size is enlarged. There are postop sternotomy changes. The internal defibrillator device is pre sent. There is blunting to the right costophrenic angle suggesting effusion. There is increased densi ty in the right upper lung zone. I cannot exclude this as an infiltrative type lung change. IMPRESSION: 1. Cardiomegaly with persistent right sided pleural effusion and right lower lobe atelectasis. 2. Slightly more prominent right upper lobe parenchymal density. This may just be related to th e lordotic technique of this film but pneumonic infiltrate is not definitely excluded as a possibilit y. POS: AH
[2020-10-05 15:34] LABS: ALT (SGPT) 45 U/L (8-55); AST (SGOT) 47 U/L (5-34); Albumin 3.6 g/dL (3.4-4.8); Alkaline Phosphatase 148 U/L (40-110); Anion Gap 20 mmol/L (10-20); BUN (Urea Nitrogen) 48 mg/dL (8.4-25.7); CK (CPK) 55 U/L (30-200); Calc. Creatinine Clearance 0 mL/min (70-130); Calcium 9.4 mg/dL (7.8-10.44); Carbon Dioxide 23 mmol/L (23-31); Chloride 97 mmol/L (98-107); Globulin 3.8 g/dL (2.4-3.5); Glucose 518 mg/dL (83-110); Lipase 25 U/L (8-78); Potassium 5.2 mmol/L (3.5-5.1); Protein, Total 7.4 g/dL (5.8-8.1); Sodium 135 mmol/L (136-145)
[2020-10-05 15:53] LABS: CKMB 4.4 ng/mL (0-6.6)
[2020-10-05 15:54] LABS: Digoxin 0.94 ng/mL (0.8-2.0)
[2020-10-05 15:55] LABS: #Lymphocytes 1.2 thou/uL (1.20-3.40); #Neutrophils 5.2 thou/uL (1.40-6.50); %Basophils 0.2 % (0.0-1.0); %Eosinophils 0.2 % (0.0-10.0); %Lymphocytes 16.1 % (21.0-51.0); %Monocytes 13.5 % (0.0-10.0); %Neutrophils 70.1 % (42.0-75.0); Hemoglobin 15.3 g/dL (14.0-18.0); Mean Corpuscular Hemoglobin 30.1 pg (27.0-31.0); Platelet Count 170 thou/uL (130-400); RBC Distribution Width 13.2 % (11.5-14.5); Red Blood Cell (RBC) Count 5.08 mill/uL (4.70-6.10); White Blood Cell (WBC) Count 7.4 thou/uL (4.8-10.8)
[2020-10-05] MEDS ORDERED: cefTRIAXone\\ROCEPHIN 2 GM VIAL ONE (16:03)
[2020-10-05] MEDS ORDERED: Azithromycin 500 MG VIAL ONE (16:03)
[2020-10-05] MEDS ORDERED: Insulin Regular 300 UNITS/3 ML VIAL ONE (16:47)
[2020-10-05 16:57] LABS: Bilirubin Negative (Negative); Blood, Urine 3+ (Negative); Clarity Clear (Clear); Glucose, Urine (Dipstick) Greater than 1000 mg/dL (Negative); Ketone, Urine Negative (Negative); Leukocyte Negative Leu/uL (Negative); Nitrite Negative (Negative); Protein, Urine (Dipstick) 50 mg/dL (Neg-Trace); RBC/HPF 21-50 HPF (0-3); Specific Gravity, Urine 1.021 (1.002-1.036); Squamous Epithelial None Seen HPF (0-3); Urobilinogen Normal mg/dL (Less than 2); pH, Urine 5.5 (5.0-9.0)
[2020-10-05 16:58] LABS: Bacteria/HPF 1+ HPF (None Seen)
[2020-10-05 18:09] LABS: Lactic Acid 3.8 mmol/L (0.5-2.2)
[2020-10-05 18:29] LABS: SARS-CoV-2 NAA Rapid Test DETECTED (NotDetected)
[2020-10-05] MEDS ORDERED: Ondansetron ODT 4 MG TAB PO PRN (20:08)
[2020-10-05] MEDS ORDERED: Guaifenesin DM 100-10/5 ML UDCUP PO PRN (20:08)
[2020-10-05] MEDS ORDERED: Acetaminophen 325 MG TAB PO PRN (20:08)
[2020-10-05] MEDS ORDERED: Ondansetron PF 4 MG/2 ML Vial IVP PRN (20:08)
[2020-10-05] MEDS ORDERED: Acetaminophen 650 MG Suppository PR PRN (20:08)
--- NOTE | 2020-10-05 20:15 | PDOC.HHP ---
Hospitalist HPI - History of Present Illness general malaise History of Present Illness: Case of an 85y/o male with a pmhx of DM, cad hypothyroidism and chf with an EF of 30% who comes to hospital due to general malaise. apparently patient was on hi usual state of health until 3-4 days ago when he started with generalize weakness and general malaise. he iniyially came for evaluation on 10/02 and was discharge home, he states that since then he has been feeling worse and more weak, he states he was barely support his own weight. patient denies any fever chills nause or vomiting, he does refers sob and cough. AT the ED patient was evaluated and found on sepsis secondary to covid 19. hospitalist was called for further evaluation and management Hospitalist ROS - Review of Systems All other systems reviewed; all pertinent +/- noted in HPI/Subj Hospitalist History - Past Surgical History Past Surgical History: reports: CABG - Family History Family History: reports: no pertinent history - Social History Smoking Status: Never smoker Alcohol: reports: None Drugs: reports: none - Exam General Appearance: ill appearing Eye: PERRL, anicteric sclera ENT: normocephalic atraumatic, no oropharyngeal lesions Neck: supple, symmetric, no JVD Heart: RRR, no murmur, no gallops Respiratory: rhonchi, tachypneic Gastrointestinal: soft, non-tender, non-distended Extremities: no cyanosis, no clubbing, no edema Skin: normal turgor, no lesions, no rashes Neurological: cranial nerve grossly intact, normal sensation to touch Musculoskeletal: generalized weakness Psychiatric: normal affect, normal behavior, A&O x 3 Hospitalist Results - Labs Result Diagrams: 10/05/20 15:31 10/05/20 15:00 Lab results: WBC 7.4 thou/uL (4.8-10.8) 10/05/20 15:31 Hgb 15.3 g/dL (14.0-18.0) 10/05/20 15:31 Hct 47.7 % (42.0-52.0) 10/05/20 15:31 MCV 94.0 fL (78.0-98.0) 10/05/20 15:31 Plt Count 170 thou/uL (130-400) 10/05/20 15:31 Neutrophils % 70.1 % (42.0-75.0) 10/05/20 15:31 Sodium 135 mmol/L (136-145) L 10/05/20 15:00 Potassium 5.2 mmol/L (3.5-5.1) H 10/05/20 15:00 Chloride 97 mmol/L (98-107) L 10/05/20 15:00 Carbon Dioxide 23 mmol/L (23-31) 10/05/20 15:00 BUN 48 mg/dL (8.4-25.7) H 10/05/20 15:00 Creatinine 1.62 mg/dL (0.7-1.3) H 10/05/20 15:00 Glucose 518 mg/dL (83-110) H 10/05/20 15:00 Lactic Acid 3.8 mmol/L (0.5-2.2) H 10/05/20 17:43 Calcium 9.4 mg/dL (7.8-10.44) 10/05/20 15:00 Total Bilirubin 1.0 mg/dL (0.2-1.2) 10/05/20 15:00 AST 47 U/L (5-34) H 10/05/20 15:00 ALT 45 U/L (8-55) 10/05/20 15:00 Alkaline Phosphatase 148 U/L (40-110) H 10/05/20 15:00 Creatine Kinase 55 U/L (30-200) 10/05/20 15:00 CK-MB (CK-2) 4.4 ng/mL (0-6.6) 10/05/20 15:00 Troponin I 0.059 ng/mL (< 0.028) H 10/05/20 15:00 B-Natriuretic Peptide 4403.1 pg/mL (0-100) H 10/05/20 15:00 Serum Total Protein 7.4 g/dL (5.8-8.1) 10/05/20 15:00 Albumin 3.6 g/dL (3.4-4.8) 10/05/20 15:00 Lipase 25 U/L (8-78) 10/05/20 15:00 Urine Ketones Negative mg/dL (Negative) 10/05/20 16:40 Urine Blood 3+ (Negative) A 10/05/20 16:40 Urine Nitrite Negative (Negative) 10/05/20 16:40 Ur Leukocyte Esterase Negative Jaqui/uL (Negative) 10/05/20 16:40 Urine RBC 21-50 HPF (0-3) A 10/05/20 16:40 Urine WBC 11-20 HPF (0-3) A 10/05/20 16:40 Ur Squamous Epith Cells None Seen HPF (0-3) 10/05/20 16:40 Urine Bacteria 1+ HPF (None Seen) A 10/05/20 16:40 Hospitalist H&P A/P - Problem (1) Sepsis Code(s): A41.9 - SEPSIS, UNSPECIFIED ORGANISM Status: Acute (2) Diabetes Code(s): E11.9 - TYPE 2 DIABETES MELLITUS WITHOUT COMPLICATIONS Status: Acute (3) CAD (coronary artery disease) Code(s): I25.10 - ATHSCL HEART DISEASE OF [place] CORONARY ARTERY W/O ANG PCTRS Status: Chronic Qualifiers: Coronary Disease-Associated Artery/Lesion type: bypass graft [place] vs. transplanted heart: [place] heart Associated angina: without angina Qualified Code(s): I25.810 - Atherosclerosis of coronary artery bypass graft(s) without angina pectoris (4) H/O: CVA (cerebrovascular accident) Code(s): Z86.73 - PRSNL HX OF TIA (TIA), AND CEREB INFRC W/O RESID DEFICITS Status: Chronic (5) HTN (hypertension) Code(s): I10 - ESSENTIAL (PRIMARY) HYPERTENSION Status: Chronic Qualifiers: Hypertension type: essential hypertension Qualified Code(s): I10 - Essential (primary) hypertension (6) Pneumonia due to COVID-19 virus Code(s): U07.1 - COVID-19; J12.89 - OTHER VIRAL PNEUMONIA Status: Acute - Plan Plan: Case of an 85y/o male with the stated pmhx who presents with covid 19 pneumoania covid 19 pneumonia - positive test - will start decadron ivd - vit c d +zinc - prophylactically covered with rocephin+ azithromycin - 02 supplementation - elevated LA - isolation precautions - ID consult for possible remdesevir lokesh - elevated creatinine comprated to previous examinations - treated iv boluses - bnp in the 4k, w hx of chf will continue to treat with iv boluses - f/u renal function and u/o chf - hx of ef 30% w recent admission 1m/a due to decompensation - had LA 3.2 pt receive sepsis bundles - bnp at 4k, will give iv boluses to complete sepsis bunldes and then hold ivfs - continue home meds, will hold diuretics for now dm - ss+acc cad / hypothyrodisim - continue home meds
[2020-10-05] MEDS ORDERED: Sodium Chloride 0.9% 500 ML IV SCH (22:45)
[2020-10-05] MEDS ORDERED: Dextrose 50% Abboject 50 ML SYRINGE SLOW IVP PRN (22:53)
[2020-10-05] MEDS ORDERED: Dextrose 5% in Water 1,000 ML IV PRN (22:53)
[2020-10-05] MEDS ORDERED: HumaLOG 300 UNITS/3 ML VIAL SC PRN (22:53)
[2020-10-06] MEDS ORDERED: Furosemide 20 MG/2 ML VIAL ONE (01:50)
[2020-10-06 05:41] LABS: Hemoglobin 14.8 g/dL (14.0-18.0); Mean Corpuscular HGB CONC 31.7 g/dL (32.0-36.0); Mean Corpuscular Hemoglobin 29.7 pg (27.0-31.0); Mean Platelet Volume 9.4 fL (7.4-10.4); Platelet Count 188 thou/uL (130-400); RBC Distribution Width 13.3 % (11.5-14.5); Red Blood Cell (RBC) Count 4.97 mill/uL (4.70-6.10); White Blood Cell (WBC) Count 10.2 thou/uL (4.8-10.8)
[2020-10-06 06:01] LABS: ALT (SGPT) 90 U/L (8-55); AST (SGOT) 117 U/L (5-34); Albumin 3.3 g/dL (3.4-4.8); Alkaline Phosphatase 202 U/L (40-110); Anion Gap 17 mmol/L (10-20); BUN (Urea Nitrogen) 43 mg/dL (8.4-25.7); Bilirubin, Total 0.8 mg/dL (0.2-1.2); Calc. Creatinine Clearance 34 mL/min (70-130); Calcium 8.7 mg/dL (7.8-10.44); Carbon Dioxide 23 mmol/L (23-31); Chloride 103 mmol/L (98-107); Globulin 3.4 g/dL (2.4-3.5); Glucose 321 mg/dL (83-110); Potassium 4.7 mmol/L (3.5-5.1); Protein, Total 6.7 g/dL (5.8-8.1); Sodium 138 mmol/L (136-145)
[2020-10-06 06:09] LABS: Band 3 % (5-11); Lymphocytes 18 % (21-51); MDiff Complete? YES; Monocytes 10 % (0-10); Neutrophil 68 % (42-75); Reactive Lymphocytes 1 % (0-10)
[2020-10-06] MEDS: Levothyroxine Sodium 25 MCG TAB PO SCH (07:05)
[2020-10-06] MEDS ORDERED: Dextrose 50% Abboject 50 ML SYRINGE SLOW IVP PRN (08:10)
[2020-10-06] MEDS ORDERED: Dextrose 5% in Water 1,000 ML IV PRN (08:10)
--- NOTE | 2020-10-06 08:15 | PDOC.HOSPP ---
- Subjective Encounter Date: 10/06/20 Encounter Time: 08:13 Subjective: alert. major complaint is fatigue. no fever, etc - Objective Vital Signs & Weight: Vital Signs (12 hours) Temp Pulse Resp BP Pulse Ox 10/06/20 04:02 98.1 F 77 22 H 171/92 H 98 Weight Weight 148 lb 11.2 oz Result Diagrams: 10/06/20 05:30 10/06/20 05:30 Additional Labs: Accuchecks 10/05/20 10/05/20 18:19 16:55 POC Glucose 321 H 415 H Hospitalist ROS - Medication Medications: Active Medications Generic Name Dose Route Start Last Admin Trade Name Freq PRN Reason Stop Dose Admin Levothyroxine Sodium 25 mcg 10/06/20 06:00 10/06/20 07:05 Levothyroxine Sodium 25 Mcg Tab PO 25 mcg 0600 JATIN Administration - Exam General Appearance: awake alert Neck: no JVD Heart: RRR Respiratory - other findings: fine rales diffusely, decreased BS. coarse rales basilar areas Gastrointestinal: soft, non-distended, normal bowel sounds Extremities: no edema Hosp A/P (1) Pneumonia due to COVID-19 virus Code(s): U07.1 - COVID-19; J12.89 - OTHER VIRAL PNEUMONIA Status: Acute (2) Acute respiratory failure with hypoxemia Code(s): J96.01 - ACUTE RESPIRATORY FAILURE WITH HYPOXIA Status: Acute (3) Diabetes Code(s): E11.9 - TYPE 2 DIABETES MELLITUS WITHOUT COMPLICATIONS Status: Acute Qualifiers: Diabetes mellitus type: type 2 Diabetes mellitus assisted insulin use: without assisted use Diabetes mellitus complication status: with kidney complications Diabetes mellitus complication detail: with chronic kidney disease Chronic kidney disease stage: stage 3 (moderate) (4) CAD (coronary artery disease) Code(s): I25.10 - ATHSCL HEART DISEASE OF [place] CORONARY ARTERY W/O ANG PCTRS Status: Chronic Qualifiers: Coronary Disease-Associated Artery/Lesion type: bypass graft [place] vs. transplanted heart: [place] heart Associated angina: without angina Qualified Code(s): I25.810 - Atherosclerosis of coronary artery bypass graft(s) without angina pectoris (5) HTN (hypertension) Code(s): I10 - ESSENTIAL (PRIMARY) HYPERTENSION Status: Chronic Qualifiers: Hypertension type: essential hypertension Qualified Code(s): I10 - Essential (primary) hypertension (6) Ischemic cardiomyopathy Code(s): I25.5 - ISCHEMIC CARDIOMYOPATHY Status: Chronic (7) Chronic systolic HF (heart failure) Code(s): I50.22 - CHRONIC SYSTOLIC (CONGESTIVE) HEART FAILURE Status: Acute - Plan 1, COVID- cont decadron, O2, Order chest CT, discuss with ID 2. DM increase SS to moderate, check Hg A1c 3. cont meds for CAD, CHF- ASA, plavix, coreg, sotolol. Pt taken off entresto on last antoni 08/30/20 4.monitor lactic acid 5. cont iv antibx for now
--- NOTE | 2020-10-06 09:28 | CT ---
EXAM: Chest CT scan without contrast: HISTORY: Shortness of breath Covid positive COMPARISON: Abdomen CT, 02/08/2019 FINDINGS: Several up to borderline size mediastinal lymph nodes some of which are partially calcified Scattered areas of bilateral interstitial, alveolar, and groundglass opacity changes more so in the r ight upper lobe which certainly is evidence for Covid pneumonia. Bilateral pleural effusions, moderate on the right side with some compressive atelectatic changes involving much of the right lowe r lobe. Minimal cardiomegaly. No pericardial effusion. Possible minimal fluid adjacent to the spleen. Stable right adrenal gland mass probably an adenoma. M inimal wall thickening and potential edematous changes of the gallbladder, incompletely seen, if there is clinical concern for acute cholecystitis, follow-up gallbladder ultrasound might be consider ed. IMPRESSION: Patchy interstitial, alveolar, and groundglass opacity changes noted bilaterally more prominent in th e right lung evidence for Covid pneumonia. Bilateral pleural effusions much more prominent on the right side with some compressive right lower l obe atelectasis. Other findings as above.
[2020-10-06] MEDS: Enoxaparin Sodium 40 MG/0.4 ML SYRINGE SC SCH (11:50)
[2020-10-06] MEDS: Carvedilol 25 MG TAB PO SCH ×2 (11:51→20:58)
[2020-10-06] MEDS: Cholecalciferol (Vitamin D3) 400 UNITS TAB PO SCH (11:52)
[2020-10-06] MEDS: Ascorbic Acid 500 mg Chewable Tablet PO SCH (11:52)
[2020-10-06] MEDS: Multivitamin W/ Minerals 1 TAB PO SCH (11:52)
[2020-10-06] MEDS: Aspirin Chewable 81 MG TAB PO SCH (11:52)
[2020-10-06] MEDS: Digoxin 0.125 MG TAB PO SCH (11:52)
[2020-10-06] MEDS: Fish Oil 1,000 MG CAP PO SCH (11:52)
[2020-10-06] MEDS: Clopidogrel Bisulfate 75 MG TAB PO SCH (11:52)
[2020-10-06] MEDS: Sotalol HCl 80 MG TAB PO SCH ×2 (11:53→20:57)
[2020-10-06] MEDS: Zinc Sulfate 220 MG CAP PO SCH (11:53)
[2020-10-06] MEDS: Dexamethasone 4 mg/ml Vial SLOW IVP SCH (11:54)
[2020-10-06] MEDS: Spironolactone 25 MG TAB PO SCH (11:57)
[2020-10-06] MEDS: HumaLOG 300 UNITS/3 ML VIAL SC PRN ×3 (11:59→22:58)
[2020-10-06 12:50] LABS: Hemoglobin A1c 11.6 % (4.0-6.0)
[2020-10-06] MEDS ORDERED: cefTRIAXone\\ROCEPHIN 2 GM in Sodium Chloride 0.9% 100 ML IVPB SCH (15:00)
--- NOTE | 2020-10-06 15:35 | CON ---
DATE OF CONSULTATION: 10/06/2020 REASON FOR CONSULTATION: COVID pneumonia. HISTORY OF PRESENT ILLNESS: An 85-year-old who has a history of type 2 diabetes, coronary artery disease, prior AICD placement, and bypass graft surgery, who has been ill a few days before admission, initially tested negative for COVID and then tested positive this time and he was admitted. He had moderate lung infiltrates, more prominent on the right side. Currently, he is leaning towards his left. He looks sicker than what his numbers tell. Denies any headaches. He drinks intermittently, able to eat. No visual changes. No chest pain. Mild dyspnea. Some cough. No abdominal pain or diarrhea. He is voiding in the diaper. PAST MEDICAL HISTORY: 1. Coronary artery disease. 2. Bypass graft surgery. 3. AICD. 4. Type 2 diabetes. SOCIAL HISTORY: Recently moved from [place] to [facility] with his new . Never smoker. No alcoholic beverage use. He is retired. ALLERGIES: NO KNOWN DRUG ALLERGIES. CURRENT MEDICATIONS: 1. Azithromycin. 2. Ceftriaxone. 3. Decadron. 4. Has not been started on remdesivir. FAMILY HISTORY: Noncontributory. PHYSICAL EXAMINATION: VITAL SIGNS: Normal temperature, BP 170/91, respiratory rate 20 to 28, and O2 saturation 100 on 2.5 L. SKIN: An ulcerated area, measuring about 2 cm, over the medial aspect of the left first MPJ skin site with necrotic or dark thick eschar covering the ulcer. He has a peripheral IV access. Voiding in the diaper. GENERAL: He is kind of slouched over or slumped over the left side. He is able to talk. He seems to be alert. Does not appear to be in pain. LYMPHATICS: No lymphadenopathy. HEENT: Ocular movements conjugate. He has no [place] teeth remaining. NECK: Supple. No jugular vein distention. LUNGS: Faint crackles in the right base. HEART: S1 and S2. Regular rate without murmurs. No S3 or S4. ABDOMEN: Soft, not distended or tender. No ascites. No bladder distention. EXTREMITIES: He moves extremities equally, but he is diffusely weak. NEUROLOGIC: He is awake. Speech is a bit halting and he is a bit tachypneic. LABORATORY DATA: White cell count 7.4 and 10.2, hemoglobin 14, and platelets 188 with 68% neutrophils, and total lymphocyte count was 1.2. D-dimer 1.51. Creatinine is 1.47, AST 117, ALT 90, alkaline phosphatase 202, and albumin 3.3. Urinalysis with 11 to 20 wbc's. ASSESSMENT: 1. COVID pneumonia. 2. Coronary artery disease with bypass graft surgery. 3. Automatic implantable cardioverter-defibrillator. 4. Diabetes, type 2. His BLANCHE score is high and he is on nasal cannula 2.5, saturating 100%. He seems to have more weakness and general malaise than what his lung involvement would belie. I think he is eligible for remdesivir and we will go ahead and get it started. Discontinue azithromycin and Rocephin. Continue Decadron. Monitor markers every other day. Job ID: [id number] MTDD
--- NOTE | 2020-10-06 15:47 | PDOC.BPN ---
- Brief Progress Note Encounter Date: 10/06/20 Encounter Time: 15:46 BS high. HgA1c 11.6. patient states no HX DM. ACCU/SS/ Lantus started
[2020-10-06] MEDS ORDERED: Azithromycin 500 MG in Sodium Chloride 0.9% 250 ML 250 ML IVPB SCH (16:00)
[2020-10-06] MEDS ORDERED: REMDESIVIR (EUA) 200 MG in Sodium Chloride 0.9% 250 ML 210 ML IV SCH (17:00)
[2020-10-06] MEDS ORDERED: Insulin Glargine 10 UNITS in Pre-Filled Syringe 1 EACH SC SCH (21:00)
[2020-10-07 05:49] LABS: BUN (Urea Nitrogen) 45 mg/dL (8.4-25.7); Calc. Creatinine Clearance 38 mL/min (70-130); Carbon Dioxide 19 mmol/L (23-31); Chloride 104 mmol/L (98-107); Potassium 5.1 mmol/L (3.5-5.1); Sodium 139 mmol/L (136-145)
[2020-10-07 05:50] LABS: ALT (SGPT) 99 U/L (8-55); AST (SGOT) 73 U/L (5-34); Albumin 3.1 g/dL (3.4-4.8); Alkaline Phosphatase 251 U/L (40-110); Bilirubin, Direct 0.3 mg/dL (0.1-0.3); Bilirubin, Total 0.5 mg/dL (0.2-1.2); Calcium 7.8 mg/dL (7.8-10.44); Glucose 373 mg/dL (83-110); Protein, Total 6.4 g/dL (5.8-8.1)
[2020-10-07 05:52] LABS: Anion Gap 21 mmol/L (10-20)
[2020-10-07] MEDS: Levothyroxine Sodium 25 MCG TAB PO SCH (05:53)
[2020-10-07] MEDS: HumaLOG 300 UNITS/3 ML VIAL SC PRN ×4 (05:56→21:33)
[2020-10-07] MEDS: Fish Oil 1,000 MG CAP PO SCH (08:54)
[2020-10-07] MEDS: Ascorbic Acid 500 mg Chewable Tablet PO SCH (08:54)
[2020-10-07] MEDS: Sotalol HCl 80 MG TAB PO SCH ×2 (08:54→21:40)
[2020-10-07] MEDS: Spironolactone 25 MG TAB PO SCH (08:54)
[2020-10-07] MEDS: Cholecalciferol (Vitamin D3) 400 UNITS TAB PO SCH (08:54)
[2020-10-07] MEDS: Digoxin 0.125 MG TAB PO SCH (08:54)
[2020-10-07] MEDS: Aspirin Chewable 81 MG TAB PO SCH (08:54)
[2020-10-07] MEDS: Multivitamin W/ Minerals 1 TAB PO SCH (08:55)
[2020-10-07] MEDS: Dexamethasone 4 mg/ml Vial SLOW IVP SCH (08:55)
[2020-10-07] MEDS: Zinc Sulfate 220 MG CAP PO SCH (08:55)
[2020-10-07] MEDS: Carvedilol 25 MG TAB PO SCH ×2 (08:55→21:40)
[2020-10-07] MEDS: Clopidogrel Bisulfate 75 MG TAB PO SCH (08:55)
[2020-10-07] MEDS: Enoxaparin Sodium 40 MG/0.4 ML SYRINGE SC SCH (08:56)
--- NOTE | 2020-10-07 15:23 | EKG ---
Test Reason : Blood Pressure : / mmHG Vent. Rate : 072 BPM Atrial Rate : 075 BPM P-R Int : 144 ms QRS Dur : 166 ms QT Int : 488 ms P-R-T Axes : 000 -15 122 degrees QTc Int : 534 ms AV dual-paced rhythm Abnormal ECG Confirmed by CRISTINA MELGOZA MD ([id number]), state editor RODNEY LUCIANO ([id number]) on 10/07/2020 3:23:24 PM Referred By: Confirmed By:CRISTINA MELGOZA MD
--- NOTE | 2020-10-07 16:04 | PDOC.HOSPP ---
- Subjective Encounter Date: 10/07/20 Subjective: Reports she feels about the same. May be slightly better. Persistent cough. - Objective Vital Signs & Weight: Vital Signs (12 hours) Temp Pulse Resp BP Pulse Ox 10/07/20 10:25 97.7 F 63 20 158/70 H 100 10/07/20 09:15 97.7 F 107 H 22 H 167/80 H 95 Weight Weight 144 lb 7 oz I&O: 10/06/20 10/07/20 10/08/20 06:59 06:59 06:59 Intake Total 200 1080 Balance 200 1080 Result Diagrams: 10/06/20 05:30 10/07/20 05:02 Additional Labs: Accuchecks 10/07/20 10/06/20 10/06/20 10:19 21:36 17:04 POC Glucose 317 H 325 H 315 H Hospitalist ROS - Medication Medications: Active Medications Generic Name Dose Route Start Last Admin Trade Name Freq PRN Reason Stop Dose Admin Ascorbic Acid 1,000 mg 10/06/20 09:00 10/07/20 08:54 Ascorbic Acid 500 Mg Chewable Tablet PO 1,000 mg DAILY JATIN Administration Aspirin 81 mg 10/06/20 09:00 10/07/20 08:54 Aspirin Chewable 81 Mg Tab PO 81 mg DAILY JATIN Administration Carvedilol 12.5 mg 10/06/20 09:00 10/07/20 08:55 Carvedilol 25 Mg Tab PO 12.5 mg BID JATIN Administration Cholecalciferol 400 units 10/06/20 09:00 10/07/20 08:54 Cholecalciferol (Vitamin D3) 400 Units Tab PO 400 units DAILY JATIN Administration Clopidogrel Bisulfate 75 mg 10/06/20 09:00 10/07/20 08:55 Clopidogrel Bisulfate 75 Mg Tab PO 75 mg DAILY JATIN Administration Dexamethasone 6 mg 10/06/20 09:00 10/07/20 08:55 Dexamethasone 4 Mg/Ml Vial SLOW IVP 6 mg DAILY JATNI Administration Digoxin 0.125 mg 10/06/20 09:00 10/07/20 08:54 Digoxin 0.125 Mg Tab PO 0.125 mg DAILY JATIN Administration Enoxaparin Sodium 40 mg 10/06/20 09:00 10/07/20 08:56 Enoxaparin Sodium 40 Mg/0.4 Ml Syringe SC 40 mg 0900 JATIN Administration Fish Oil 1,000 mg 10/06/20 09:00 10/07/20 08:54 Fish Oil 1,000 Mg Cap PO 1,000 mg DAILY JATIN Administration Insulin Glargine 10 units/ 0.1 mls @ 0 mls/hr 10/06/20 21:00 10/06/20 23:02 Miscellaneous Medication SC 0.1 mls HS JATIN Administration Insulin Human Lispro 0 units 10/06/20 08:10 10/07/20 11:43 Humalog 300 Units/3 Ml Vial SC 8 unit .MODERATE SLIDING SC PRN Administration Moderate Correctional Scale Iron/Minerals/Multivitamins 1 tab 10/06/20 09:00 10/07/20 08:55 Multivitamin W/ Minerals 1 Tab PO 1 tab DAILY JATIN Administration Levothyroxine Sodium 25 mcg 10/06/20 06:00 10/07/20 05:53 Levothyroxine Sodium 25 Mcg Tab PO 25 mcg 0600 JATIN Administration Sotalol HCl 40 mg 10/06/20 09:00 10/07/20 08:54 Sotalol Hcl 80 Mg Tab PO 40 mg BID JATIN Administration Spironolactone 12.5 mg 10/06/20 08:00 10/07/20 08:54 Spironolactone 25 Mg Tab PO 12.5 mg QAM-WM JATIN Administration Zinc Sulfate 220 mg 10/06/20 09:00 10/07/20 08:55 Zinc Sulfate 220 Mg Cap PO 220 mg DAILY JATIN Administration - Exam General Appearance: NAD, ill appearing Heart: RRR, no murmur, no gallops, no rubs, normal peripheral pulses Respiratory: CTAB, no wheezes, no rales, no ronchi, normal chest expansion, no tachypnea, normal percussion Gastrointestinal: soft, non-tender, non-distended, normal bowel sounds, no palpable masses, no hepatomegaly, no splenomegaly, no bruit Extremities: no cyanosis, no clubbing, no edema Skin: normal turgor Neurological: cranial nerve grossly intact, normal sensation to touch, no weakness, no focal deficits, no new deficit Musculoskeletal: normal tone, normal strength, no muscle wasting Psychiatric: normal affect, normal behavior, A&O x 3 Hosp A/P (1) Acute respiratory failure with hypoxemia Code(s): J96.01 - ACUTE RESPIRATORY FAILURE WITH HYPOXIA Status: Acute (2) Pneumonia due to COVID-19 virus Code(s): U07.1 - COVID-19; J12.89 - OTHER VIRAL PNEUMONIA Status: Acute (3) CAD (coronary artery disease) Code(s): I25.10 - ATHSCL HEART DISEASE OF [place] CORONARY ARTERY W/O ANG PCTRS Status: Chronic Qualifiers: Coronary Disease-Associated Artery/Lesion type: bypass graft [place] vs. transplanted heart: [place] heart Associated angina: without angina Qualified Code(s): I25.810 - Atherosclerosis of coronary artery bypass graft(s) without angina pectoris (4) H/O: CVA (cerebrovascular accident) Code(s): Z86.73 - PRSNL HX OF TIA (TIA), AND CEREB INFRC W/O RESID DEFICITS Status: Chronic (5) HTN (hypertension) Code(s): I10 - ESSENTIAL (PRIMARY) HYPERTENSION Status: Chronic Qualifiers: Hypertension type: essential hypertension Qualified Code(s): I10 - Essential (primary) hypertension (6) Ischemic cardiomyopathy Code(s): I25.5 - ISCHEMIC CARDIOMYOPATHY Status: Chronic (7) Diabetes Code(s): E11.9 - TYPE 2 DIABETES MELLITUS WITHOUT COMPLICATIONS Status: Acute Qualifiers: Diabetes mellitus type: type 2 Diabetes mellitus exterminator helper insulin use: without penitentiary use Diabetes mellitus complication status: with kidney complications Diabetes mellitus complication detail: with chronic kidney disease Chronic kidney disease stage: stage 3 (moderate) (8) Hypothyroidism Code(s): E03.9 - HYPOTHYROIDISM, UNSPECIFIED Status: Acute - Plan Patient is a 85-year-old male who presented to the hospital reporting generalized malaise and fatigue. Here he tested positive for Covid. Denies any significant respiratory symptoms. COVID-19 pneumonia: ID consulted. On Remdesivir, Decadron, vitamin supplementation. CRP is 7.15 D-dimer 1.71, ferritin 289. Acute hypoxic respiratory failure: Mild. Continue supplemental oxygen. Bronchodilators as needed. Secondary to Covid 19 pneumonia. Malaise: Secondary to acute viral infection. Hypothyroidism: Continue with his usual home medication regimen. Acute on chronic kidney disease: Patient's baseline GFR appears to have been in the 70s most recently. Presented with a GFR in the 40s. Slightly improved. Persistent prerenal azotemia numbers. Will give gentle hydration. Diabetes with severe hyperglycemia: Likely secondary to the steroids. Increase sliding scale to aggressive on 10/07/2020. Increase Lantus insulin to 20 units nightly on 10-26. Ischemic cardiomyopathy: Appears to be adequately compensated without acute failure. Echocardiogram from last year revealed an ejection fraction of 30 to 35%. Defibrillator in place. Coronary artery disease: Continue Plavix and aspirin. Patient does not appear to be on a statin. Unclear why not. Will investigate. DVT prophylaxis: Enoxaparin. PUD prophylaxis: Pantoprazole.
[2020-10-07] MEDS: Sodium Chloride 0.9% 1,000 ML IV SCH (17:00)
[2020-10-07] MEDS: REMDESIVIR (EUA) 100 MG in Sodium Chloride 0.9% 250 ML 230 ML IV SCH (18:07)
[2020-10-07] MEDS: Insulin Glargine 20 UNITS in Pre-Filled Syringe 1 EACH SC SCH (21:43)
[2020-10-08] MEDS: Sodium Chloride 0.9% 1,000 ML IV SCH ×2 (04:24→08:59)
[2020-10-08] MEDS: Levothyroxine Sodium 25 MCG TAB PO SCH (05:37)
[2020-10-08] MEDS: HumaLOG 300 UNITS/3 ML VIAL SC PRN ×4 (05:55→22:31)
[2020-10-08 07:52] VITALS: BMI 24.0
[2020-10-08] MEDS: Spironolactone 25 MG TAB PO SCH (08:49)
[2020-10-08] MEDS: Ascorbic Acid 500 mg Chewable Tablet PO SCH (08:51)
[2020-10-08] MEDS: Aspirin Chewable 81 MG TAB PO SCH (08:52)
[2020-10-08] MEDS: Carvedilol 25 MG TAB PO SCH ×2 (08:52→19:27)
[2020-10-08] MEDS: Cholecalciferol (Vitamin D3) 400 UNITS TAB PO SCH (08:53)
[2020-10-08] MEDS: Clopidogrel Bisulfate 75 MG TAB PO SCH (08:53)
[2020-10-08] MEDS: Fish Oil 1,000 MG CAP PO SCH (08:53)
[2020-10-08] MEDS: Enoxaparin Sodium 40 MG/0.4 ML SYRINGE SC SCH (08:54)
[2020-10-08] MEDS: Dexamethasone 4 mg/ml Vial SLOW IVP SCH (08:54)
[2020-10-08] MEDS: Digoxin 0.125 MG TAB PO SCH (08:54)
[2020-10-08] MEDS: Sotalol HCl 80 MG TAB PO SCH ×2 (08:55→19:26)
[2020-10-08] MEDS: Multivitamin W/ Minerals 1 TAB PO SCH (08:55)
[2020-10-08] MEDS: Zinc Sulfate 220 MG CAP PO SCH (08:56)
[2020-10-08 09:07] LABS: ALT (SGPT) 75 U/L (8-55); AST (SGOT) 42 U/L (5-34); Albumin 2.9 g/dL (3.4-4.8); Alkaline Phosphatase 195 U/L (40-110); Anion Gap 11 mmol/L (10-20); BUN (Urea Nitrogen) 42 mg/dL (8.4-25.7); Bilirubin, Total 0.5 mg/dL (0.2-1.2); Calc. Creatinine Clearance 52 mL/min (70-130); Calcium 8.4 mg/dL (7.8-10.44); Carbon Dioxide 25 mmol/L (23-31); Chloride 106 mmol/L (98-107); Globulin 2.9 g/dL (2.4-3.5); Glucose 213 mg/dL (83-110); Potassium 4.4 mmol/L (3.5-5.1); Protein, Total 5.8 g/dL (5.8-8.1); Sodium 138 mmol/L (136-145)
--- NOTE | 2020-10-08 15:59 | PDOC.HOSPP ---
- Subjective Encounter Date: 10/08/20 Subjective: Says he feels a little bit better today. Not a great deal, but a little. - Objective Vital Signs & Weight: Vital Signs (12 hours) Temp Pulse Resp BP Pulse Ox 10/08/20 11:18 97.7 F 66 20 161/77 H 92 L 10/08/20 09:15 97.3 F L 66 22 H 171/92 H 94 L 10/08/20 08:55 65 10/08/20 08:54 65 10/08/20 04:44 99 10/08/20 04:22 96.9 F L 65 17 137/62 99 Weight Weight 144 lb 6.444 oz I&O: 10/07/20 10/08/20 10/09/20 06:59 06:59 06:59 Intake Total 1080 1380 200 Balance 1080 1380 200 Result Diagrams: 10/06/20 05:30 10/08/20 08:37 Additional Labs: Accuchecks 10/08/20 10/08/20 10/07/20 11:16 05:53 21:01 POC Glucose 196 H 206 H 297 H 10/07/20 16:03 POC Glucose 288 H Hospitalist ROS - Medication Medications: Active Medications Generic Name Dose Route Start Last Admin Trade Name Freq PRN Reason Stop Dose Admin Ascorbic Acid 1,000 mg 10/06/20 09:00 10/08/20 08:51 Ascorbic Acid 500 Mg Chewable Tablet PO 1,000 mg DAILY JATIN Administration Aspirin 81 mg 10/06/20 09:00 10/08/20 08:52 Aspirin Chewable 81 Mg Tab PO 81 mg DAILY JATIN Administration Carvedilol 12.5 mg 10/06/20 09:00 10/08/20 08:52 Carvedilol 25 Mg Tab PO 12.5 mg BID JATIN Administration Cholecalciferol 400 units 10/06/20 09:00 10/08/20 08:53 Cholecalciferol (Vitamin D3) 400 Units Tab PO 400 units DAILY JATIN Administration Clopidogrel Bisulfate 75 mg 10/06/20 09:00 10/08/20 08:53 Clopidogrel Bisulfate 75 Mg Tab PO 75 mg DAILY JATIN Administration Dexamethasone 6 mg 10/06/20 09:00 10/08/20 08:54 Dexamethasone 4 Mg/Ml Vial SLOW IVP 6 mg DAILY JATIN Administration Digoxin 0.125 mg 10/06/20 09:00 10/08/20 08:54 Digoxin 0.125 Mg Tab PO 0.125 mg DAILY JATIN Administration Enoxaparin Sodium 40 mg 10/06/20 09:00 10/08/20 08:54 Enoxaparin Sodium 40 Mg/0.4 Ml Syringe SC 40 mg 0900 JATIN Administration Fish Oil 1,000 mg 10/06/20 09:00 10/08/20 08:53 Fish Oil 1,000 Mg Cap PO 1,000 mg DAILY JATIN Administration Remdesivir 100 mg/ Sodium 250 mls @ 250 mls/hr 10/07/20 17:00 10/07/20 18:07 Chloride IV 10/10/20 17:59 250 mls 1700 JATIN Administration Insulin Glargine 20 units/ 0.2 mls @ 0 mls/hr 10/07/20 21:00 10/07/20 21:43 Miscellaneous Medication SC 0.2 mls HS JATIN Administration As Directed Insulin Human Lispro 0 units 10/06/20 08:10 10/07/20 21:33 Humalog 300 Units/3 Ml Vial SC 3 unit .BEDTIME SLIDING SC PRN Administration Bedtime Correctional Scale Insulin Human Lispro 0 units 10/07/20 16:18 10/08/20 13:59 Humalog 300 Units/3 Ml Vial SC 3 unit .AGGRESSIVE SLIDING PRN Administration Aggressive Correctional Scale Iron/Minerals/Multivitamins 1 tab 10/06/20 09:00 10/08/20 08:55 Multivitamin W/ Minerals 1 Tab PO 1 tab DAILY JATIN Administration Levothyroxine Sodium 25 mcg 10/06/20 06:00 10/08/20 05:37 Levothyroxine Sodium 25 Mcg Tab PO 25 mcg 0600 JATIN Administration Pantoprazole Sodium 40 mg 10/08/20 09:00 10/08/20 08:55 Pantoprazole 40 Mg Tab PO 40 mg DAILY JATIN Administration Sotalol HCl 40 mg 10/06/20 09:00 10/08/20 08:55 Sotalol Hcl 80 Mg Tab PO 40 mg BID JATIN Administration Spironolactone 12.5 mg 10/06/20 08:00 10/08/20 08:49 Spironolactone 25 Mg Tab PO 12.5 mg QAM-WM JATIN Administration Zinc Sulfate 220 mg 10/06/20 09:00 10/08/20 08:56 Zinc Sulfate 220 Mg Cap PO 220 mg DAILY JATIN Administration - Exam General Appearance: NAD, awake alert Heart: RRR, no murmur, no gallops, no rubs, normal peripheral pulses Respiratory: CTAB Respiratory - other findings: Diminished, especially on the right. Gastrointestinal: soft, non-tender, non-distended, normal bowel sounds, no palpable masses, no hepatomegaly, no splenomegaly, no bruit Extremities: no cyanosis, no clubbing, no edema Skin: normal turgor Musculoskeletal: normal tone, generalized weakness Psychiatric: normal affect, somnolent, lethargic Hosp A/P (1) Acute respiratory failure with hypoxemia Code(s): J96.01 - ACUTE RESPIRATORY FAILURE WITH HYPOXIA Status: Acute (2) Pneumonia due to COVID-19 virus Code(s): U07.1 - COVID-19; J12.89 - OTHER VIRAL PNEUMONIA Status: Acute (3) CAD (coronary artery disease) Code(s): I25.10 - ATHSCL HEART DISEASE OF [place] CORONARY ARTERY W/O ANG PCTRS Status: Chronic Qualifiers: Coronary Disease-Associated Artery/Lesion type: bypass graft [place] vs. transplanted heart: [place] heart Associated angina: without angina Qualified Code(s): I25.810 - Atherosclerosis of coronary artery bypass graft(s) without angina pectoris (4) H/O: CVA (cerebrovascular accident) Code(s): Z86.73 - PRSNL HX OF TIA (TIA), AND CEREB INFRC W/O RESID DEFICITS Status: Chronic (5) HTN (hypertension) Code(s): I10 - ESSENTIAL (PRIMARY) HYPERTENSION Status: Chronic Qualifiers: Hypertension type: essential hypertension Qualified Code(s): I10 - Essential (primary) hypertension (6) Ischemic cardiomyopathy Code(s): I25.5 - ISCHEMIC CARDIOMYOPATHY Status: Chronic (7) Diabetes Code(s): E11.9 - TYPE 2 DIABETES MELLITUS WITHOUT COMPLICATIONS Status: Acute Qualifiers: Diabetes mellitus type: type 2 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 Here he tested positive for Covid. Denies any significant respiratory symptoms. COVID-19 pneumonia: ID consulted. On Remdesivir, Decadron, vitamin supplementation. CRP is 7.15 D-dimer 1.71, ferritin 289. IMPRESSION: Patchy interstitial, alveolar, and groundglass opacity changes noted bilaterally more prominent in the right lung evidence for Covid pneumonia. Bilateral pleural effusions much more prominent on the right side with some compressive right lower lobe atelectasis. Acute hypoxic respiratory failure: Mild. Continue supplemental oxygen. Bronchodilators as needed. Secondary to Covid 19 pneumonia, right pleural effusion. Malaise: Secondary to acute viral infection. Hypothyroidism: Continue with his usual home medication regimen. Acute on chronic kidney disease: Patient's baseline GFR appears to have been in the 70s most recently. Presented with a GFR in the 40s. He was given some gentle hydration and his GFR improved over 70. Fluid subsequently discontinued in light of his cardiomyopathy. Diabetes with severe hyperglycemia: Likely secondary to the steroids. Increase sliding scale to aggressive on 10/07/2020. Increase Lantus insulin to 20 units nightly on 10-26. Ischemic cardiomyopathy: Appears to be adequately compensated without acute failure although he does have significant right-sided pleural effusion. Echocardiogram from last year revealed an ejection fraction of 30 to 35%. Defibrillator in place. Cannot aggressively diurese given his acute kidney injury on presentation. His home dose of Lasix initially held. Coronary artery disease: Continue Plavix and aspirin. Patient does not appear to be on a statin. Unclear why not. Will investigate. Pleural effusion: Likely secondary to some chronic congestive heart failure. As above, avoiding aggressive diuresis due to his KELLY. If his hypoxia does not significantly resolve, may need to consider thoracentesis at some point. DVT prophylaxis: Enoxaparin. PUD prophylaxis: Pantoprazole.
[2020-10-08] MEDS: REMDESIVIR (EUA) 100 MG in Sodium Chloride 0.9% 250 ML 230 ML IV SCH (18:08)
[2020-10-08] MEDS: Insulin Glargine 20 UNITS in Pre-Filled Syringe 1 EACH SC SCH (22:30)
[2020-10-09] MEDS: Levothyroxine Sodium 25 MCG TAB PO SCH (05:26)
[2020-10-09] MEDS: HumaLOG 300 UNITS/3 ML VIAL SC PRN ×4 (05:26→19:57)
[2020-10-09 05:47] LABS: ALT (SGPT) 70 U/L (8-55); AST (SGOT) 32 U/L (5-34); Albumin 2.9 g/dL (3.4-4.8); Alkaline Phosphatase 189 U/L (40-110); Anion Gap 12 mmol/L (10-20); BUN (Urea Nitrogen) 48 mg/dL (8.4-25.7); Bilirubin, Direct 0.3 mg/dL (0.1-0.3); Bilirubin, Total 0.5 mg/dL (0.2-1.2); Calc. Creatinine Clearance 43 mL/min (70-130); Calcium 8.4 mg/dL (7.8-10.44); Carbon Dioxide 26 mmol/L (23-31); Chloride 107 mmol/L (98-107); Glucose 282 mg/dL (83-110); Potassium 4.7 mmol/L (3.5-5.1); Protein, Total 5.9 g/dL (5.8-8.1); Sodium 140 mmol/L (136-145)
[2020-10-09] MEDS: Spironolactone 25 MG TAB PO SCH (07:56)
[2020-10-09] MEDS: Ascorbic Acid 500 mg Chewable Tablet PO SCH (07:58)
[2020-10-09] MEDS: Fish Oil 1,000 MG CAP PO SCH (07:58)
[2020-10-09] MEDS: Aspirin Chewable 81 MG TAB PO SCH (07:58)
[2020-10-09] MEDS: Carvedilol 25 MG TAB PO SCH ×2 (07:58→19:55)
[2020-10-09] MEDS: Cholecalciferol (Vitamin D3) 400 UNITS TAB PO SCH (07:59)
[2020-10-09] MEDS: Clopidogrel Bisulfate 75 MG TAB PO SCH (08:00)
[2020-10-09] MEDS: Digoxin 0.125 MG TAB PO SCH (08:00)
[2020-10-09] MEDS: Enoxaparin Sodium 40 MG/0.4 ML SYRINGE SC SCH (08:00)
[2020-10-09] MEDS: Dexamethasone 4 mg/ml Vial SLOW IVP SCH (08:00)
[2020-10-09] MEDS: Sotalol HCl 80 MG TAB PO SCH ×2 (08:01→19:54)
[2020-10-09] MEDS: Zinc Sulfate 220 MG CAP PO SCH (08:01)
[2020-10-09] MEDS: Multivitamin W/ Minerals 1 TAB PO SCH (08:01)
--- NOTE | 2020-10-09 09:46 | PQF ---
CLINICAL DOCUMENTATION CLARIFICATION FORM: Dear Dr. Turner Date: 10/09/20 Please exercise your independent, professional judgment in responding to the clarification form. Clinical indicators are provided on the bottom of this form for your review. Please check appropriate box(es): HEART FAILURE: A. ACUITY [ ] Acute [ ] Acute on Chronic [ ] Chronic B. TYPE: [ ] Systolic / HFrEF [ ] Diastolic / HFpEF [ ] Combined Systolic / Diastolic [ ] Hypertensive Heart and Kidney disease [ ] Hypertensive Heart Disease [ ] Hypertensive Kidney Disease [ ] Other diagnosis [ ] Unable to determine In addition, please specify: Present on Admission (POA): [ ] Yes [ ] No [ ] Unable to determine For continuity of documentation, please document condition throughout progress notes and discharge summary. Thank You. To be completed by CDI/Coding staff for physician review: CLINICAL INDICATORS - SIGNS / SYMPTOMS / LABS / RESULTS AND LOCATION IN EMR BNP 10/09: 3823.2 RISKS FACTORS / RESULTS AND LOCATION IN EMR H/O HTN (PN NOTE 10/08 PETTY) "BILATERAL PLEURAL EFFUSIONS- MORE PROMINENT ON THE RIGHT SIDE WITH SOME COMPRESSIVE RIGHT LOWER LOBE ATELECTASIS" (PN 10/08 FICKLEN) ISCHEMIC CARDIOMYOPATHY (PN 3- FICKLEVE) KELLY AND H/O CKD 3 (PN 10/08- FICKLEVE) H/O CONGESTIVE HEART FAILURE (PN 10/08-PETTY ECHO REPORT FROM LAST YEAR REVEALED EF 30-35% (PN 10/08-FICKLEN) TREATMENTS / RESULTS AND LOCATION IN EMR IV LASIX IN ER CARDIAC MONITORING (COREG 10/06-PRESENT) ALDACTONE (10/06-PRESENT) SUPPLEMENTAL OXYGEN CDS Signature: Sherice Bellamy RN Phone #: [phone] Date: 10/09/20 This is a permanent part of the Medical Record [facility]
--- NOTE | 2020-10-09 14:11 | PDOC.HOSPP ---
- Subjective Encounter Date: 10/09/20 Subjective: Reports she may feel a little better today. She is a little unsure of that. Still generally lethargic. - Objective Vital Signs & Weight: Vital Signs (12 hours) Temp Pulse Resp BP BP Pulse Ox 10/09/20 11:40 96.4 F L 64 20 162/74 H 92 L 10/09/20 08:30 97.9 F 63 18 161/79 H 100 10/09/20 08:01 65 10/09/20 08:00 65 10/09/20 03:55 65 18 169/84 H 93 L Weight Weight 151 lb 3.2 oz I&O: 10/08/20 10/09/20 10/10/20 06:59 06:59 06:59 Intake Total 1380 1190 Balance 1380 1190 Result Diagrams: 10/06/20 05:30 10/09/20 04:56 Additional Labs: Accuchecks 10/09/20 10/09/20 10/08/20 10:49 05:18 21:23 POC Glucose 256 H 239 H 341 H 10/08/20 16:42 POC Glucose 282 H Hospitalist ROS - Medication Medications: Active Medications Generic Name Dose Route Start Last Admin Trade Name Freq PRN Reason Stop Dose Admin Ascorbic Acid 1,000 mg 10/06/20 09:00 10/09/20 07:58 Ascorbic Acid 500 Mg Chewable Tablet PO 1,000 mg DAILY JATIN Administration Aspirin 81 mg 10/06/20 09:00 10/09/20 07:58 Aspirin Chewable 81 Mg Tab PO 81 mg DAILY JATIN Administration Carvedilol 12.5 mg 10/06/20 09:00 10/09/20 07:58 Carvedilol 25 Mg Tab PO 12.5 mg BID JATIN Administration Cholecalciferol 400 units 10/06/20 09:00 10/09/20 07:59 Cholecalciferol (Vitamin D3) 400 Units Tab PO 400 units DAILY JATIN Administration Clopidogrel Bisulfate 75 mg 10/06/20 09:00 10/09/20 08:00 Clopidogrel Bisulfate 75 Mg Tab PO 75 mg DAILY JATIN Administration Dexamethasone 6 mg 10/06/20 09:00 10/09/20 08:00 Dexamethasone 4 Mg/Ml Vial SLOW IVP 6 mg DAILY JATIN Administration Digoxin 0.125 mg 10/06/20 09:00 10/09/20 08:00 Digoxin 0.125 Mg Tab PO 0.125 mg DAILY JATIN Administration Enoxaparin Sodium 40 mg 10/06/20 09:00 10/09/20 08:00 Enoxaparin Sodium 40 Mg/0.4 Ml Syringe SC 40 mg 0900 JATIN Administration Fish Oil 1,000 mg 10/06/20 09:00 10/09/20 07:58 Fish Oil 1,000 Mg Cap PO 1,000 mg DAILY JATIN Administration Remdesivir 100 mg/ Sodium 250 mls @ 250 mls/hr 10/07/20 17:00 10/08/20 18:08 Chloride IV 10/10/20 17:59 250 mls 1700 JATIN Administration Insulin Human Lispro 0 units 10/06/20 08:10 10/08/20 22:31 Humalog 300 Units/3 Ml Vial SC 2 unit .BEDTIME SLIDING SC PRN Administration Bedtime Correctional Scale Insulin Human Lispro 0 units 10/07/20 16:18 10/09/20 12:39 Humalog 300 Units/3 Ml Vial SC 9 unit .AGGRESSIVE SLIDING PRN Administration Aggressive Correctional Scale Iron/Minerals/Multivitamins 1 tab 10/06/20 09:00 10/09/20 08:01 Multivitamin W/ Minerals 1 Tab PO 1 tab DAILY JATIN Administration Levothyroxine Sodium 25 mcg 10/06/20 06:00 10/09/20 05:26 Levothyroxine Sodium 25 Mcg Tab PO 25 mcg 0600 JATIN Administration Pantoprazole Sodium 40 mg 10/08/20 09:00 10/09/20 08:01 Pantoprazole 40 Mg Tab PO 40 mg DAILY JATIN Administration Sotalol HCl 40 mg 10/06/20 09:00 10/09/20 08:01 Sotalol Hcl 80 Mg Tab PO 40 mg BID JATIN Administration Spironolactone 12.5 mg 10/06/20 08:00 10/09/20 07:56 Spironolactone 25 Mg Tab PO 12.5 mg QAM-WM JATIN Administration Zinc Sulfate 220 mg 10/06/20 09:00 10/09/20 08:01 Zinc Sulfate 220 Mg Cap PO 220 mg DAILY JATIN Administration - Exam General Appearance: NAD, awake alert Heart: RRR, no murmur, no gallops, no rubs, normal peripheral pulses Respiratory: no wheezes, no ronchi, normal chest expansion, no tachypnea, normal percussion, rales (Modest, scattered.) Gastrointestinal: soft, non-tender, non-distended, normal bowel sounds, no palpable masses, no hepatomegaly, no splenomegaly, no bruit Extremities: no cyanosis, no clubbing, no edema Skin: normal turgor Neurological: no focal deficits Musculoskeletal: generalized weakness Psychiatric: normal affect, normal behavior, A&O x 3, lethargic Hosp A/P (1) Acute respiratory failure with hypoxemia Code(s): J96.01 - ACUTE RESPIRATORY FAILURE WITH HYPOXIA Status: Acute (2) Pneumonia due to COVID-19 virus Code(s): U07.1 - COVID-19; J12.89 - OTHER VIRAL PNEUMONIA Status: Acute (3) CAD (coronary artery disease) Code(s): I25.10 - ATHSCL HEART DISEASE OF [place] CORONARY ARTERY W/O ANG PCTRS Status: Chronic Qualifiers: Coronary Disease-Associated Artery/Lesion type: bypass graft [place] vs. transplanted heart: [place] heart Associated angina: without angina Qualified Code(s): I25.810 - Atherosclerosis of coronary artery bypass graft(s) without angina pectoris (4) H/O: CVA (cerebrovascular accident) Code(s): Z86.73 - PRSNL HX OF TIA (TIA), AND CEREB INFRC W/O RESID DEFICITS Status: Chronic (5) HTN (hypertension) Code(s): I10 - ESSENTIAL (PRIMARY) HYPERTENSION Status: Chronic Qualifiers: Hypertension type: essential hypertension Qualified Code(s): I10 - Essential (primary) hypertension (6) Ischemic cardiomyopathy Code(s): I25.5 - ISCHEMIC CARDIOMYOPATHY Status: Chronic (7) Diabetes Code(s): E11.9 - TYPE 2 DIABETES MELLITUS WITHOUT COMPLICATIONS Status: Acute Qualifiers: Diabetes mellitus type: type 2 Diabetes mellitus correction insulin use: without correction use Diabetes mellitus complication status: with kidney complications Diabetes mellitus complication detail: with chronic kidney disease Chronic kidney disease stage: stage 3 (moderate) (8) Hypothyroidism Code(s): E03.9 - HYPOTHYROIDISM, UNSPECIFIED Status: Acute - Plan Patient is a 85-year-old male who presented to the hospital reporting generalized malaise and fatigue. Here he tested positive for Covid. Denies any significant respiratory symptoms. COVID-19 pneumonia: ID consulted. On Remdesivir, Decadron, vitamin supplementation. Initial inflammatory markers: CRP is 7.15 D-dimer 1.71, ferritin 289. On 10/09/2020: CRP 3, ferritin normal, D-dimer 1.1. CT chest IMPRESSION: Patchy interstitial, alveolar, and groundglass opacity changes noted bilaterally more prominent in the right lung evidence for Covid pneumonia. Bilateral pleural effusions much more prominent on the right side with some compressive right lower lobe atelectasis. Acute hypoxic respiratory failure: Mild. Continue supplemental oxygen. Bronchodilators as needed. Secondary to Covid 19 pneumonia, right pleural effusion. Malaise: Secondary to acute viral infection. Hypothyroidism: Continue with his usual home medication regimen. Acute on chronic kidney disease: Patient's baseline GFR appears to have been in the 70s most recently. Presented with a GFR in the 40s. He was given some gentle hydration and his GFR improved over 70. Fluid subsequently discontinued in light of his cardiomyopathy. May be some component of cardiorenal syndrome. Diabetes with severe hyperglycemia: Likely secondary to the steroids. Increase sliding scale to aggressive on 10/07/2020. Increase Lantus insulin to 20 units nightly on 10/07/20. Increase Lantus to 30 units nightly on 10/09/2020 Ischemic cardiomyopathy/acute on chronic systolic CHF: He does have significant right-sided pleural effusion. Some of his chest x-ray findings could be consistent with pulmonary edema. BNP was significantly elevated. Echocardiogram from last year revealed an ejection fraction of 30 to 35%. Defibrillator in place. Could not initially aggressively diurese given his acute kidney injury on presentation. His home dose of Lasix initially held. As he appeared to have more stabilize renal function diuretics will be reintroduced on 10/10/2020. Coronary artery disease: Continue Plavix and aspirin. Patient does not appear to be on a statin. Communicated with Dr. Tong, patient's ent nurse. He indicated the patient was intolerant to previous attempts at statins. Pleural effusion: Likely secondary to some chronic congestive heart failure. As above, avoiding aggressive diuresis due to his KELLY. Will attempt some modest diuresis. If his hypoxia does not significantly resolve, may need to consider thoracentesis at some point. Cardiac pause: Patient had a reported 2.4-second pause. Patient does have a pacemaker with a paced rhythm. Attempts to interrogate it thus far been unsuccessful due to the fact that it is not a [employer]. We will attempt to determine the brand of pacemaker and get interrogation done. DVT prophylaxis: Enoxaparin. PUD prophylaxis: Pantoprazole.
--- NOTE | 2020-10-09 14:47 | RAD ---
CHEST 1 VIEW: Date: 10/09/2020 HISTORY: Shortness of breath. COMPARISON: Radiograph dated 10/05/2020. FINDINGS: Moderate layering pleural effusions. Heart size is enlarged. Air space opacities are relatively simil ar. Dense calcifications of the aorta. IMPRESSION: Similar examination of the chest. POS: [facility]
[2020-10-09] MEDS ORDERED: hydrALAZINE 20 MG/ML VIAL SLOW IVP PRN (15:55)
[2020-10-09] MEDS ORDERED: Lisinopril 2.5 MG TAB PO SCH (16:00)
[2020-10-09] MEDS: REMDESIVIR (EUA) 100 MG in Sodium Chloride 0.9% 250 ML 230 ML IV SCH (18:20)
[2020-10-09] MEDS: Insulin Glargine 30 UNITS in Pre-Filled Syringe 1 EACH SC SCH (19:57)
[2020-10-10] MEDS: Levothyroxine Sodium 25 MCG TAB PO SCH (05:03)
[2020-10-10] MEDS: Spironolactone 25 MG TAB PO SCH (08:15)
[2020-10-10] MEDS: Ascorbic Acid 500 mg Chewable Tablet PO SCH (08:16)
[2020-10-10] MEDS: Carvedilol 25 MG TAB PO SCH ×2 (08:17→20:07)
[2020-10-10] MEDS: Aspirin Chewable 81 MG TAB PO SCH (08:17)
[2020-10-10] MEDS: Cholecalciferol (Vitamin D3) 400 UNITS TAB PO SCH (08:18)
[2020-10-10] MEDS: Dexamethasone 4 mg/ml Vial SLOW IVP SCH (08:18)
[2020-10-10] MEDS: Clopidogrel Bisulfate 75 MG TAB PO SCH (08:18)
[2020-10-10] MEDS: Digoxin 0.125 MG TAB PO SCH (08:19)
[2020-10-10] MEDS: Lisinopril 5 MG TAB PO SCH (08:19)
[2020-10-10] MEDS: Multivitamin W/ Minerals 1 TAB PO SCH (08:19)
[2020-10-10] MEDS: Enoxaparin Sodium 40 MG/0.4 ML SYRINGE SC SCH (08:19)
[2020-10-10] MEDS: Sotalol HCl 80 MG TAB PO SCH ×2 (08:20→20:05)
[2020-10-10] MEDS: Zinc Sulfate 220 MG CAP PO SCH (08:20)
[2020-10-10] MEDS: Fish Oil 1,000 MG CAP PO SCH (08:22)
[2020-10-10] MEDS: REMDESIVIR (EUA) 100 MG in Sodium Chloride 0.9% 250 ML 230 ML IV SCH (16:56)
--- NOTE | 2020-10-10 17:05 | PDOC.HOSPP ---
- Subjective Encounter Date: 10/10/20 Subjective: Patient reports she is still feels about the same. Denies significant shortness of breath but reports profound generalized malaise and fatigue. - Objective Vital Signs & Weight: Vital Signs (12 hours) Temp Pulse Resp BP BP BP BP 10/10/20 15:13 187/81 H 184/82 H 10/10/20 12:50 97.7 F 63 20 164/77 H 10/10/20 08:50 97.5 F L 63 20 168/87 H 10/10/20 08:20 63 10/10/20 08:19 63 10/10/20 08:00 Pulse Ox Pulse Ox Pulse Ox Pulse Ox 10/10/20 15:13 88 L 100 95 10/10/20 12:50 99 10/10/20 08:50 99 10/10/20 08:20 10/10/20 08:19 10/10/20 08:00 99 Weight Weight 153 lb 6.4 oz I&O: 10/09/20 10/10/20 10/11/20 06:59 06:59 06:59 Intake Total 1190 700 340 Balance 1190 700 340 Result Diagrams: 10/06/20 05:30 10/09/20 04:56 Additional Labs: Accuchecks 10/10/20 10/10/20 10/09/20 10:47 05:36 20:02 POC Glucose 138 H 105 H 254 H 10/09/20 17:38 POC Glucose 268 H Hospitalist ROS - Medication Medications: Active Medications Generic Name Dose Route Start Last Admin Trade Name Freq PRN Reason Stop Dose Admin Ascorbic Acid 1,000 mg 10/06/20 09:00 10/10/20 08:16 Ascorbic Acid 500 Mg Chewable Tablet PO 1,000 mg DAILY JATIN Administration Aspirin 81 mg 10/06/20 09:00 10/10/20 08:17 Aspirin Chewable 81 Mg Tab PO 81 mg DAILY JATIN Administration Carvedilol 12.5 mg 10/06/20 09:00 10/10/20 08:17 Carvedilol 25 Mg Tab PO 12.5 mg BID JATIN Administration Cholecalciferol 400 units 10/06/20 09:00 10/10/20 08:18 Cholecalciferol (Vitamin D3) 400 Units Tab PO 400 units DAILY JATIN Administration Clopidogrel Bisulfate 75 mg 10/06/20 09:00 10/10/20 08:18 Clopidogrel Bisulfate 75 Mg Tab PO 75 mg DAILY JATIN Administration Dexamethasone 6 mg 10/06/20 09:00 10/10/20 08:18 Dexamethasone 4 Mg/Ml Vial SLOW IVP 6 mg DAILY JATIN Administration Digoxin 0.125 mg 10/06/20 09:00 10/10/20 08:19 Digoxin 0.125 Mg Tab PO 0.125 mg DAILY JATIN Administration Enoxaparin Sodium 40 mg 10/06/20 09:00 10/10/20 08:19 Enoxaparin Sodium 40 Mg/0.4 Ml Syringe SC 40 mg 0900 JATIN Administration Fish Oil 1,000 mg 10/06/20 09:00 10/10/20 08:22 Fish Oil 1,000 Mg Cap PO 1,000 mg DAILY JATIN Administration Guaifenesin/Dextromethorphan 15 ml 10/05/20 20:08 10/10/20 16:55 Guaifenesin Dm 100-10/5 Ml Udcup PO 15 ml Q4H PRN Administration Cough Remdesivir 100 mg/ Sodium 250 mls @ 250 mls/hr 10/07/20 17:00 10/10/20 16:56 Chloride IV 10/10/20 17:59 250 mls 1700 JATIN Administration Insulin Glargine 30 units/ 0.3 mls @ 0 mls/hr 10/09/20 14:04 10/09/20 19:57 Miscellaneous Medication SC 0.3 mls HS JATIN Administration As Directed Insulin Human Lispro 0 units 10/06/20 08:10 10/09/20 19:57 Humalog 300 Units/3 Ml Vial SC 3 unit .BEDTIME SLIDING SC PRN Administration Bedtime Correctional Scale Insulin Human Lispro 0 units 10/07/20 16:18 10/09/20 18:21 Humalog 300 Units/3 Ml Vial SC 9 unit .AGGRESSIVE SLIDING PRN Administration Aggressive Correctional Scale Iron/Minerals/Multivitamins 1 tab 10/06/20 09:00 10/10/20 08:19 Multivitamin W/ Minerals 1 Tab PO 1 tab DAILY JATIN Administration Levothyroxine Sodium 25 mcg 10/06/20 06:00 10/10/20 05:03 Levothyroxine Sodium 25 Mcg Tab PO 25 mcg 0600 JATIN Administration Lisinopril 5 mg 10/10/20 09:00 10/10/20 08:19 Lisinopril 5 Mg Tab PO 5 mg DAILY JATIN Administration Pantoprazole Sodium 40 mg 10/08/20 09:00 10/10/20 08:19 Pantoprazole 40 Mg Tab PO 40 mg DAILY JATIN Administration Sotalol HCl 40 mg 10/06/20 09:00 10/10/20 08:20 Sotalol Hcl 80 Mg Tab PO 40 mg BID JATIN Administration Spironolactone 12.5 mg 10/06/20 08:00 10/10/20 08:15 Spironolactone 25 Mg Tab PO 12.5 mg QAM-WM JATIN Administration Zinc Sulfate 220 mg 10/06/20 09:00 10/10/20 08:20 Zinc Sulfate 220 Mg Cap PO 220 mg DAILY JATIN Administration - Exam General Appearance: NAD, awake alert General - other findings: Actually looks significantly better. More energy, better color Heart: RRR, no murmur, no gallops, no rubs, normal peripheral pulses Respiratory: rales (Scattered bilateral) Gastrointestinal: soft, non-tender, non-distended, normal bowel sounds, no palpable masses, no hepatomegaly, no splenomegaly, no bruit Extremities: no cyanosis, no clubbing, no edema Neurological: no focal deficits Musculoskeletal: generalized weakness Psychiatric: normal affect, normal behavior, A&O x 3 Hosp A/P (1) Acute respiratory failure with hypoxemia Code(s): J96.01 - ACUTE RESPIRATORY FAILURE WITH HYPOXIA Status: Acute (2) Pneumonia due to COVID-19 virus Code(s): U07.1 - COVID-19; J12.89 - OTHER VIRAL PNEUMONIA Status: Acute (3) CAD (coronary artery disease) Code(s): I25.10 - ATHSCL HEART DISEASE OF [place] CORONARY ARTERY W/O ANG PCTRS Status: Chronic Qualifiers: Coronary Disease-Associated Artery/Lesion type: bypass graft [place] vs. transplanted heart: [place] heart Associated angina: without angina Qualified Code(s): I25.810 - Atherosclerosis of coronary artery bypass graft(s) without angina pectoris (4) H/O: CVA (cerebrovascular accident) Code(s): Z86.73 - PRSNL HX OF TIA (TIA), AND CEREB INFRC W/O RESID DEFICITS Status: Chronic (5) HTN (hypertension) Code(s): I10 - ESSENTIAL (PRIMARY) HYPERTENSION Status: Chronic Qualifiers: Hypertension type: essential hypertension Qualified Code(s): I10 - Essential (primary) hypertension (6) Ischemic cardiomyopathy Code(s): I25.5 - ISCHEMIC CARDIOMYOPATHY Status: Chronic (7) Diabetes Code(s): E11.9 - TYPE 2 DIABETES MELLITUS WITHOUT COMPLICATIONS Status: Acute Qualifiers: Diabetes mellitus type: type 2 Diabetes mellitus keno terminal operator insulin use: without keno terminal operator use Diabetes mellitus complication status: with kidney complications Diabetes mellitus complication detail: with chronic kidney disease Chronic kidney disease stage: stage 3 (moderate) (8) Hypothyroidism Code(s): E03.9 - HYPOTHYROIDISM, UNSPECIFIED Status: Acute - Plan Patient is a 85-year-old male who presented to the hospital reporting generalized malaise and fatigue. Here he tested positive for Covid. Denies any significant respiratory symptoms. COVID-19 pneumonia: ID consulted. On Remdesivir, Decadron, vitamin supplementation. Initial inflammatory markers: CRP is 7.15 D-dimer 1.71, ferritin 289. On 10/09/2020: CRP 3, ferritin normal, D-dimer 1.1. CT chest IMPRESSION: Patchy interstitial, alveolar, and groundglass opacity changes noted bilaterally more prominent in the right lung evidence for Covid pneumonia. Bilateral pleural effusions much more prominent on the right side with some compressive right lower lobe atelectasis. Acute hypoxic respiratory failure: Mild. Continue supplemental oxygen. Bronchodilators as needed. Secondary to Covid 19 pneumonia, right pleural effusion. Malaise: Secondary to acute viral infection. Hypothyroidism: Continue with his usual home medication regimen. Acute on chronic kidney disease: Patient's baseline GFR appears to have been in the 70s most recently. Presented with a GFR in the 40s. He was given some gentle hydration and his GFR improved over 70. Fluid subsequently discontinued in light of his cardiomyopathy. May be some component of cardiorenal syndrome. Diabetes with severe hyperglycemia: Likely secondary to the steroids. Increase sliding scale to aggressive on 10/07/2020. Increase Lantus insulin to 20 units nightly on 10/07/20. Increase Lantus to 30 units nightly on 10/09/2020 Ischemic cardiomyopathy/acute on chronic systolic CHF: He does have significant right-sided pleural effusion. Some of his chest x-ray findings could be consistent with pulmonary edema. BNP was significantly elevated. Echocardiogram from last year revealed an ejection fraction of 30 to 35%. Defibrillator in place. Could not initially aggressively diurese given his acute kidney injury on presentation. His home dose of Lasix initially held. As he appeared to have more stabilize renal function diuretics will be reintroduced on 10/10/2020. Coronary artery disease: Continue Plavix and aspirin. Patient does not appear to be on a statin. Communicated with Dr. Tong, patient's processing supervisor. He indicated the patient was intolerant to previous attempts at statins. Pleural effusion: Likely secondary to some chronic congestive heart failure. As above, avoiding aggressive diuresis due to his KELLY. Will attempt some modest diuresis. If his hypoxia does not significantly resolve, may need to consider thoracentesis at some point. Resumed Lasix on 10/10/2020. Cardiac pause: Patient had a reported 2.4-second pause. Patient does have a pacemaker with a paced rhythm. Attempts to interrogate it thus far been unsuccessful due to the fact that it is not a [employer]. We will attempt to determine the brand of pacemaker and get interrogation done. DVT prophylaxis: Enoxaparin. PUD prophylaxis: Pantoprazole. Disposition: Patient's is also in the hospital. He has no one at home to assist him. His oxygen level is such that he could potentially be discharged with an oxygen concentrator. However, given his general physical debility he will likely need to consider rehab as an intermediate option. He is very amenable to that.
[2020-10-10] MEDS: HumaLOG 300 UNITS/3 ML VIAL SC PRN ×2 (17:32→20:34)
[2020-10-10] MEDS: Insulin Glargine 30 UNITS in Pre-Filled Syringe 1 EACH SC SCH (20:09)
[2020-10-11] MEDS: Levothyroxine Sodium 25 MCG TAB PO SCH (05:53)
[2020-10-11 05:55] LABS: ALT (SGPT) 56 U/L (8-55); AST (SGOT) 38 U/L (5-34); Albumin 2.6 g/dL (3.4-4.8); Alkaline Phosphatase 151 U/L (40-110); Anion Gap 16 mmol/L (10-20); BUN (Urea Nitrogen) 37 mg/dL (8.4-25.7); Bilirubin, Direct 0.3 mg/dL (0.1-0.3); Bilirubin, Total 0.7 mg/dL (0.2-1.2); Calc. Creatinine Clearance 58 mL/min (70-130); Calcium 7.9 mg/dL (7.8-10.44); Carbon Dioxide 20 mmol/L (23-31); Chloride 105 mmol/L (98-107); Glucose 222 mg/dL (83-110); Potassium 5.3 mmol/L (3.5-5.1); Protein, Total 5.8 g/dL (5.8-8.1); Sodium 136 mmol/L (136-145)
[2020-10-11] MEDS: HumaLOG 300 UNITS/3 ML VIAL SC PRN ×3 (06:06→18:17)
[2020-10-11] MEDS ORDERED: Furosemide 40 MG TAB PO SCH (07:30)
[2020-10-11] MEDS: Carvedilol 25 MG TAB PO SCH (09:08)
[2020-10-11] MEDS: Ascorbic Acid 500 mg Chewable Tablet PO SCH (09:08)
[2020-10-11] MEDS: Aspirin Chewable 81 MG TAB PO SCH (09:08)
[2020-10-11] MEDS: Digoxin 0.125 MG TAB PO SCH (09:09)
[2020-10-11] MEDS: Multivitamin W/ Minerals 1 TAB PO SCH (09:09)
[2020-10-11] MEDS: Dexamethasone 4 mg/ml Vial SLOW IVP SCH (09:09)
[2020-10-11] MEDS: Enoxaparin Sodium 40 MG/0.4 ML SYRINGE SC SCH (09:09)
[2020-10-11] MEDS: Lisinopril 5 MG TAB PO SCH (09:09)
[2020-10-11] MEDS: Clopidogrel Bisulfate 75 MG TAB PO SCH (09:09)
[2020-10-11] MEDS: Cholecalciferol (Vitamin D3) 400 UNITS TAB PO SCH (09:09)
[2020-10-11] MEDS: Zinc Sulfate 220 MG CAP PO SCH (09:10)
[2020-10-11] MEDS: Sotalol HCl 80 MG TAB PO SCH (09:10)
[2020-10-11] MEDS: Fish Oil 1,000 MG CAP PO SCH (09:11)
[2020-10-11 16:12] VITALS: TEMP 98.7
[2020-10-11 16:32] VITALS: BP 164/76
--- NOTE | 2020-10-11 17:40 | PRG ---
DATE OF SERVICE: 10/11/2020 SUBJECTIVE: Mr. Perry is lying on his left lateral decubitus in bed. He is awake, has nasal cannula O2, and appears somewhat discouraged and despondent. He denies any chest pain. No cough. No dyspnea. No abdominal pain or diarrhea. OBJECTIVE: VITAL SIGNS: His temperature has been normal, BP 160/70, heart rate 69, and O2 saturations are 100%. HEENT: His ocular movements are conjugate. LUNGS: With fairly clear breath sounds. HEART: S1 and S2, regular rate. ABDOMEN: Soft, not distended. EXTREMITIES: Moves extremities equally. No edema. LABORATORY DATA: White cell count has not been repeated for the past 4 days. Last CRP was 1.45. Ferritin 198. A steady decrease in the C-reactive protein. His last chest x-ray showed similar airspace opacities. ASSESSMENT AND DISCUSSION: COVID pneumonia, coronary artery disease, bypass graft surgery, automated implantable cardioverter defibrillator, type 2 diabetes. His BLANCHE score is still high, and I do not see a lot of risk of deterioration for him. I guess he is eligible for discharge planning, although his latest nasal cannula O2 had to be upgraded. If that remains the case, then he is going to have to stick around a little bit longer. Currently, he is on Decadron and has finished his remdesivir. Job ID: [id number]
--- NOTE | 2020-10-11 19:30 | PDOC.DS.DS ---
Provider - Provider Date of Admission: 10/05/20 16:39 Date of Discharge: 10/11/20 Admitting Provider: Thompson Johnson MD Consultations: Infectious Disease Primary Care Physician: NO PCP PROVIDER Course - Hospital Course Hospital Course: Patient is a 85-year-old male who presented to the hospital reporting generalized malaise and fatigue. Here he tested positive for Covid. Denies any significant respiratory symptoms. COVID-19 pneumonia: ID consulted. On Remdesivir, Decadron, vitamin supplementation. Initial inflammatory markers: CRP is 7.15 D-dimer 1.71, ferritin 289. On 10/09/2020: CRP 3, ferritin normal, D-dimer 1.1. CT chest IMPRESSION: Patchy interstitial, alveolar, and groundglass opacity changes noted bilaterally more prominent in the right lung evidence for Covid pneumonia. Bilateral pleural effusions much more prominent on the right side with some compressive right lower lobe atelectasis. Acute hypoxic respiratory failure: Mild. Continue supplemental oxygen. Bronchodilators as needed. Secondary to Covid 19 pneumonia, right pleural effusion. Malaise: Secondary to acute viral infection. Hypothyroidism: Continue with his usual home medication regimen. Acute on chronic kidney disease: Patient's baseline GFR appears to have been in the 70s most recently. Presented with a GFR in the 40s. He was given some gentle hydration and his GFR improved over 70. Fluid subsequently discontinued in light of his cardiomyopathy. May be some component of cardiorenal syndrome. Diabetes with severe hyperglycemia: Likely secondary to the steroids. Increase sliding scale to aggressive on 10/07/2020. Increase Lantus insulin to 20 units nightly on 10/07/20. Increase Lantus to 30 units nightly on 10/09/2020 Ischemic cardiomyopathy/acute on chronic systolic CHF: He does have significant right-sided pleural effusion. Some of his chest x-ray findings could be consistent with pulmonary edema. BNP was significantly elevated. Echocardiogram from last year revealed an ejection fraction of 30 to 35%. Defibrillator in place. Could not initially aggressively diurese given his acute kidney injury on presentation. His home dose of Lasix initially held. As he appeared to have more stabilize renal function diuretics will be reintroduced on 10/10/2020. Coronary artery disease: Continue Plavix and aspirin. Patient does not appear to be on a statin. Communicated with Dr. Tong, patient's superintendent local. He indicated the patient was intolerant to previous attempts at statins. Pleural effusion: Likely secondary to some chronic congestive heart failure. As above, avoiding aggressive diuresis due to his KELLY. Will attempt some modest diuresis. Resumed Lasix on 10/10/2020. Oxygenation was such that these did not need to be aggressively intervened upon with thoracentesis Cardiac pause: Patient had a reported 2.4-second pause. Patient does have a pacemaker with a paced rhythm. Pacemaker interrogation was accomplished and appeared to be functioning normally. DVT prophylaxis: Enoxaparin. PUD prophylaxis: Pantoprazole. Disposition: Patient's is also in the hospital. He has no one at home to assist him. His oxygen level is such that he could potentially be discharged with an oxygen concentrator. However, given his general physical debility he will likely need to consider rehab as an intermediate option. He is very amenable to that. He requested potential transfer to the [facility] bed in [place]. He has been there before. Case management was consulted and we were able to accomplish that relatively quickly and he was discharged home on . Resuscitation Status: 10/05/20 20:08 Resuscitation Status Routine Resuscitation Status: FULL: Full Resuscitation - Labs Lab Results: 10/06/20 05:30 10/11/20 05:23 Abnormal Lab Results - Last 48 hrs 10/11/20 05:23: Potassium 5.3 H, Carbon Dioxide 20 L, BUN 37 H, AST 38 H, ALT 56 H, Alkaline Phosphatase 151 H, Albumin 2.6 L 10/11/20 13:48: C-Reactive Protein 1.45 H 10/11/20 13:49: D-Dimer 1.78 H Microbiology - Entire Visit 10/05/20 15:02 Venous blood - Right Arm Blood Culture - Final NO GROWTH IN 5 DAYS 10/05/20 15:00 Venous blood - Left Hand Blood Culture - Final NO GROWTH IN 5 DAYS - Physical Exam Vitals: Vital Signs (12 hours) Temp Pulse Pulse Pulse Pulse Resp BP 10/11/20 16:17 62 68 71 164/76 H 10/11/20 15:45 98.7 F 69 20 10/11/20 11:31 97.6 F 63 18 10/11/20 11:17 97.6 F 63 18 10/11/20 09:15 97.5 F L 62 18 10/11/20 09:10 62 10/11/20 09:09 62 10/11/20 08:00 BP BP BP BP Pulse Ox Pulse Ox Pulse Ox 10/11/20 16:17 170/73 H 175/80 H 100 96 10/11/20 15:45 162/72 H 100 10/11/20 11:31 154/74 H 100 10/11/20 11:17 154/74 H 100 10/11/20 09:15 149/70 H 100 10/11/20 09:10 10/11/20 09:09 10/11/20 08:00 99 Pulse Ox 10/11/20 16:17 100 10/11/20 15:45 10/11/20 11:31 10/11/20 11:17 10/11/20 09:15 10/11/20 09:10 10/11/20 09:09 10/11/20 08:00 Weight Weight 153 lb 6.4 oz Physical Exam: The patient was seen and examined on the day of discharge. Problem - Problem (1) Acute respiratory failure with hypoxemia Code(s): J96.01 - ACUTE RESPIRATORY FAILURE WITH HYPOXIA Status: Acute (2) Pneumonia due to COVID-19 virus Code(s): U07.1 - COVID-19; J12.89 - OTHER VIRAL PNEUMONIA Status: Acute (3) CAD (coronary artery disease) Code(s): I25.10 - ATHSCL HEART DISEASE OF [place] CORONARY ARTERY W/O ANG PCTRS Status: Chronic Qualifiers: Coronary Disease-Associated Artery/Lesion type: bypass graft [place] vs. transplanted heart: [place] heart Associated angina: without angina Qualified Code(s): I25.810 - Atherosclerosis of coronary artery bypass graft(s) without angina pectoris (4) H/O: CVA (cerebrovascular accident) Code(s): Z86.73 - PRSNL HX OF TIA (TIA), AND CEREB INFRC W/O RESID DEFICITS Status: Chronic (5) HTN (hypertension) Code(s): I10 - ESSENTIAL (PRIMARY) HYPERTENSION Status: Chronic Qualifiers: Hypertension type: essential hypertension Qualified Code(s): I10 - Essential (primary) hypertension (6) Ischemic cardiomyopathy Code(s): I25.5 - ISCHEMIC CARDIOMYOPATHY Status: Chronic (7) Diabetes Code(s): E11.9 - TYPE 2 DIABETES MELLITUS WITHOUT COMPLICATIONS Status: Acute Qualifiers: Diabetes mellitus type: type 2 Diabetes mellitus terminal block assembler insulin use: without terminal block assembler use Diabetes mellitus complication status: with kidney complications Diabetes mellitus complication detail: with chronic kidney disease Chronic kidney disease stage: stage 3 (moderate) (8) Hypothyroidism Code(s): E03.9 - HYPOTHYROIDISM, UNSPECIFIED Status: Acute - Time spent with Patient (mins): 35 Plan - Discharge Medications Prescriptions: Dexamethasone 6 mg PO DAILY #5 tablet Home Medications: Medication Instructions Recorded Confirmed Type Carvedilol [Coreg] 12.5 mg PO BID 03/16/13 08/28/20 History Digoxin [Lanoxin] 0.125 mg PO DAILY 03/16/13 10/09/20 History Spironolactone [Aldactone] 12.5 mg PO DAILY 03/16/13 10/09/20 History Docosahexaenoic Acid/Epa [Fish Oil 1 tab PO DAILY 03/17/19 08/28/20 History Concentrate Softgel] Folic Acid/Multivit-Min/Lutein 1 tab PO DAILY 03/17/19 08/28/20 History [Centrum Silver Chewable] Levothyroxine Sodium [Synthroid] 25 mcg PO DAILY 03/17/19 10/09/20 History Acetaminophen [Tylenol Extra 500 mg PO Q4H PRN tab 03/26/19 08/28/20 Rx Strength] Aspirin Chewable [Aspirin Chewable 81 mg PO DAILY #30 tab 03/31/19 08/28/20 Rx Tablet] Clopidogrel Bisulfate [Plavix] 75 mg PO DAILY #30 tab 03/31/19 10/09/20 Rx Ibuprofen [Advil] 200 mg PO Q6HR PRN 08/26/20 08/26/20 History Sotalol HCl [Sotalol] 40 mg PO BID 08/28/20 10/09/20 History traMADol HCl [Tramadol HCl] 50 mg PO QID PRN 08/28/20 10/09/20 History Furosemide [Lasix] 40 mg PO DAILY #60 tablet 08/30/20 10/09/20 Rx Ascorbic Acid [Vitamin C] 1,000 mg PO DAILY tab 10/11/20 Rx Cholecalciferol (Vitamin D3) 400 units PO DAILY tab 10/11/20 Rx [Vitamin D3] Dexamethasone 6 mg PO DAILY #5 tablet 10/11/20 Rx Enoxaparin Sodium [Lovenox] 40 mg SC 0900 syringe 10/11/20 Rx Furosemide [Lasix] 40 mg PO DAILY-AC tab 10/11/20 Rx Insulin Glargine [Lantus Vial] 30 units SC HS vial 10/11/20 Rx Lisinopril [Zestril] 5 mg PO DAILY tab 10/11/20 Rx Pantoprazole [Protonix] 40 mg PO DAILY tab 10/11/20 Rx Zinc Sulfate 220 mg PO DAILY cap 10/11/20 Rx Allergies: No Known Allergies Allergy (Verified 12/24/19 16:49) - Discharge Instructions Activity:: Activity as Tolerated Nourishment:: Heart Healthy Diet, Low Sodium Diet Therapies:: Occupational Therapy, Physical Therapy - Follow up Plan Referrals: Ian Tong MD [Affiliate] - PROVIDER,NO PCP [Primary Care Provider] - Disposition: HALFWAY FACILITY Quality - Care Measures CORE MEASURES:: N/A
--- NOTE | 2020-10-12 07:53 | PQF ---
CLINICAL DOCUMENTATION CLARIFICATION FORM: Dear : Saman Turner Date / Time: 10/12/20 7016 Please exercise your independent, professional judgment in responding to the clarification form. Clinical indicators are provided on the bottom of this form for your review Please check appropriate box(es): [ ] Sepsis due to Covid Pneumonia [ ] Severe sepsis due to Covid Pneumonia with Acute Respiratory Failure [ x ] Localized infection without sepsis [ ] Other diagnosis, please specify: [ ] Unable to determine Physician Signature: Date/Time: For continuity of documentation, please document condition throughout progress notes and discharge summary. Thank You. To be completed by CDI/Coding staff for physician review: Present Clinical Indicators - Signs / Symptoms / Labs Results and Location in Medical Record [x] Lactic acid 3.6, WBC 7.4, Plt count 170, Plt count 170 Laboratory 10/05 [x] SARS-Cov 2 Rap : Detected Serology 10/05 [x] Blood culture: No growth in 5 days Microbiology 10/05 [x] Chest X-ray: Increased density in the RUL zone. Cannot exclude this as an infiltrative type lung change Imaging Dr Bui 10/05 [x] BP 175/101, Pulse 73, Resp 28, Temp 98.3 Vital signs 10/05 [x] Evaluated and found on Sepsis secondary to Covid 19 H&P p1 10/05 Dr Rogers [x] Covid Pneumonia H&P p3 10/05 Dr Rogers [x] KELLY H&P p410/05 Dr Rogers [x] Acute respiratory failure H&P p410/05 Dr Rogers Present Risk Factors Results and Location in Medical Record [x] 85 year-old Male H&P p1 10/05 Dr Rogers [x] DM H&P p1 10/05 Dr Rogers [x] Covid Pneumonia H&P p310/05 Dr Rogers Present Treatments Results and Location in Medical Record [x] IV Remdesivir 200 mg DEC 04 [x] IVF NS 1L DEC 15 [x] IV Ceftriaxone 2 gm DEC 15 [x] IV Zithromax 500 mg DEC 15 [x] Oxygen 1 L Respiratory Panel 10/05 [x] Isolation Order 10/05 [x] ID consult Consult 10/05 CDS/Recycling Attendant Signature: Astrid Odell Phone #: [phone] Date/Time: 10/12/20 6257 This is a permanent part of the Medical Record [facility]
== END 2020-10-11 19:32 | disposition swing bed (61) | DRG 177 ==
LOC: ERS 14:24 → ERHOLD 16:39 → 2SW 19:52
PROVIDERS: ADMIT Emergency Medicine; ATTEND Internal Medicine
PROC: 8E0ZXY6 Isolation (ICD-10-PCS; 2020-10-05)
PROC: XW033E5 Introduction of Remdesivir Anti-infective into Peripheral Vein, Percutaneous Approach, New Technology Group 5 (ICD-10-PCS; principal; 2020-10-06)
PROC: 4B02XTZ Measurement of Cardiac Defibrillator, External Approach (ICD-10-PCS; 2020-10-11)
DX: U07.1 COVID-19 (principal); J12.82 Pneumonia due to coronavirus disease 2019; J96.01 Acute respiratory failure with hypoxia; I50.23 Acute on chronic systolic (congestive) heart failure; N17.9 Acute kidney failure, unspecified; I13.0 Hypertensive heart and chronic kidney disease with heart failure and stage 1 through stage 4 chronic kidney disease, or unspecified chronic kidney disease; I25.10 Atherosclerotic heart disease of native coronary artery without angina pectoris; I25.5 Ischemic cardiomyopathy; E11.22 Type 2 diabetes mellitus with diabetic chronic kidney disease; N18.30 Chronic kidney disease, stage 3 unspecified; E03.9 Hypothyroidism, unspecified; E11.65 Type 2 diabetes mellitus with hyperglycemia; Z86.73 Personal history of transient ischemic attack (TIA), and cerebral infarction without residual deficits; Z95.810 Presence of automatic (implantable) cardiac defibrillator; Z95.1 Presence of aortocoronary bypass graft; Z79.899 Other long term (current) drug therapy; Z79.890 Hormone replacement therapy; Z79.82 Long term (current) use of aspirin; Z79.84 Long term (current) use of oral hypoglycemic drugs
CPT/HCPCS: 0240U; 36415; 36416; 51701; 71045; 71250; 80048; 80053; 80076; 80162; 81003; 81015; 82010; 82550; 82553; 82728; 83036; 83605; 83690; 83880; 84443; 84484; 85007; 85025; 85027; 85379; 86140; 87040; 93005; 96365; 96367; 96375; J0456; J0696; J1100; J1650; J1815; J1940; J3490; J7050

== ENCOUNTER 2020-10-19 17:02 | Inpatient (IN) | payer MEDICARE ==
--- NOTE | 2020-10-19 18:36 | PDOC.HHP ---
Hospitalist HPI - History of Present Illness bloody bowel movement History of Present Illness: Patient is a 85 year old male with a PMH of CAD S/P CABG 15 years AGO currently on DAPT, AICD for ischemic cardiomyopathy with low EF, CVA in 2013 s/p tPA, currently w/o RSD, IDDM and a recent dx of COVID 19 PNA with hypoxia on 10/11/20. He presents with acute bloody diarrhea. Since his discharge following a hospitalization for COVID 19, he has been progressively lethargic and feeling winded. He continued in this state until today he developed several episodes of bloody, watery bowel movements. He was seen at [facility] and was transfused. Hb was 8.5 at the time. During my encounter with the patient today, he denied any chest pain, abdominal pain or hematemesis. He is visibly shortness of breath and fatigued. ED Course: SBP in the 120's Awake and answer questions Severly lethargic Receiving blood transfusion Hospitalist History - Past Surgical History Past Surgical History: reports: CABG - Social History Alcohol: reports: None Drugs: reports: none - Exam General - other findings: severely lethargic and pale Eye: PERRL, anicteric sclera ENT: normocephalic atraumatic Heart: RRR Respiratory: no rales, no ronchi Gastrointestinal: soft, non-tender, non-distended Extremities: 2+ LE edema Extremities - other findings: both lower extremities Musculoskeletal: generalized weakness Psychiatric: lethargic Hospitalist H&P A/P - Problem (1) Acute GI bleeding Code(s): K92.2 - GASTROINTESTINAL HEMORRHAGE, UNSPECIFIED Status: Acute (2) Hypothyroidism Code(s): E03.9 - HYPOTHYROIDISM, UNSPECIFIED Status: Acute (3) Pneumonia due to COVID-19 virus Code(s): U07.1 - COVID-19; J12.89 - OTHER VIRAL PNEUMONIA Status: Acute (4) Bladder cancer Status: Chronic (5) CAD (coronary artery disease) Code(s): I25.10 - ATHSCL HEART DISEASE OF [place] CORONARY ARTERY W/O ANG PCTRS Status: Chronic Qualifiers: Coronary Disease-Associated Artery/Lesion type: bypass graft [place] vs. transplanted heart: [place] heart Associated angina: without angina Qualified Code(s): I25.810 - Atherosclerosis of coronary artery bypass graft(s) without angina pectoris (6) H/O: CVA (cerebrovascular accident) Code(s): Z86.73 - PRSNL HX OF TIA (TIA), AND CEREB INFRC W/O RESID DEFICITS Status: Chronic (7) HTN (hypertension) Code(s): I10 - ESSENTIAL (PRIMARY) HYPERTENSION Status: Chronic Qualifiers: Hypertension type: essential hypertension Qualified Code(s): I10 - Essential (primary) hypertension (8) Ischemic cardiomyopathy Code(s): I25.5 - ISCHEMIC CARDIOMYOPATHY Status: Chronic - Plan Plan: Assessment 85 year old male with a PMH of CABG on DAPT, systolic CHF s/p AICD, CVA, IDDM and a recent diagnosis of COVID 19 ~ 1 week ago. He presenting with lower GI bleeding with BRBPR and clots and has received 1 unit of pRBC prior to arrival. Patient has several risk factors to bleeding including recent steroid use of COVID, ongoing use of DAPT, and possibly ibuprofen use. He is pale, lethargic and getting blood transfusion Acute GI bleeding Acute blood loss anemia Recent COVID 19 PNA Generalized weakness Systolic CHF S/P AICD - last echo with WMA in the apical and basal wall of LV, EF 30-35% IDDM CVA PLAN: Admit to ICU since patient is high risk I agree with transfusion for symptomatic anemia and acute blood loss Trend CBC q 6 hours, transfuse if < 8 Also obtain coag panel PPI injection with 40 mg IV BID Hold DAPT and IBUPROFEN SCD for DVT ppx GI has been consulted CXR and echo ordered for dyspnea and b/l edema High risk for decompensated CHF Check BNP, BMP
[2020-10-19] MEDS ORDERED: Dextrose 5% in Water 1,000 ML IV PRN (19:08)
[2020-10-19] MEDS ORDERED: Dextrose 50% Abboject 50 ML SYRINGE SLOW IVP PRN (19:08)
[2020-10-19 19:09] LABS: #Eosinphils 0.2 thou/uL (0.0-0.7); #Lymphocytes 1.8 thou/uL (1.20-3.40); #Monocytes 1.1 thou/uL (0.11-0.59); #Neutrophils 9.9 thou/uL (1.40-6.50); %Basophils 0.1 % (0.0-1.0); %Eosinophils 1.6 % (0.0-10.0); %Monocytes 8.2 % (0.0-10.0); %Neutrophils 76.1 % (42.0-75.0); Hemoglobin 8.5 g/dL (14.0-18.0); Mean Corpuscular HGB CONC 33.6 g/dL (32.0-36.0); Mean Corpuscular Hemoglobin 31.2 pg (27.0-31.0); Mean Platelet Volume 8.4 fL (7.4-10.4); Platelet Count 128 thou/uL (130-400); RBC Distribution Width 14.2 % (11.5-14.5); Red Blood Cell (RBC) Count 2.72 mill/uL (4.70-6.10)
--- NOTE | 2020-10-19 19:12 | RAD ---
Portable frontal chest radiograph: 10/19/2020 COMPARISON: 10/09/2020 HISTORY: Shortness of breath FINDINGS: Stable transvenous pacing device/AICD. Stable midline sternotomy wires. Coronary arterial c alcification and/or stent material present. There is no pneumothorax seen. There is hazy airspace disease seen throughout the right lung with a perihilar/basilar predominance. There is increased density in the left base as well. Bilateral pleural effusions are noted, right greater than left. There has been no significant interval change. IMPRESSION: Stable appearance of the chest as detailed above. Findings may be on the basis of a [place] of infectious pneumonitis (including Covid pneumonia) and edema.
[2020-10-19] MEDS ORDERED: Pantoprazole 40 MG VIAL IVP SCH (19:15)
[2020-10-19 19:49] LABS: PTT 25.1 sec (22.9-36.1); Prothrombin Time 13.7 sec (12.0-14.7)
[2020-10-19 20:01] LABS: Anion Gap 5 mmol/L (10-20); BUN (Urea Nitrogen) 60 mg/dL (8.4-25.7); Calc. Creatinine Clearance 0 mL/min (70-130); Calcium 7.9 mg/dL (7.8-10.44); Carbon Dioxide 36 mmol/L (23-31); Chloride 99 mmol/L (98-107); Glucose 235 mg/dL (83-110); Magnesium 2.1 mg/dL (1.6-2.6); Phosphorus 3.1 mg/dL (2.3-4.7); Potassium 4.4 mmol/L (3.5-5.1); Sodium 136 mmol/L (136-145)
[2020-10-20 01:09] LABS: Hemoglobin 8.3 g/dL (14.0-18.0)
[2020-10-20 08:09] LABS: Hemoglobin 8.7 g/dL (14.0-18.0); Platelet Count 133 thou/uL (130-400)
[2020-10-20] MEDS ORDERED: FLU VACC QS2020-21(65YR UP)/PF 240 MCG/0.7 ML SYRINGE IM ONE (09:00)
[2020-10-20] MEDS ORDERED: PROPOFOL 200 MG/20 ML VIAL ONE (09:08)
[2020-10-20] MEDS ORDERED: EPINEPHrine 1 MG/10 ML Abboject SYRINGE ONE (09:08)
[2020-10-20] MEDS ORDERED: Ketamine 50 MG/ML (10ML VIAL) ONE (11:34)
[2020-10-20] MEDS ORDERED: Ondansetron HCl/PF 4 MG/2 ML Vial IVP PRN (12:09)
--- NOTE | 2020-10-20 12:20 | CON ---
DATE OF CONSULTATION: 10/20/2020 REASON FOR CONSULTATION: GI bleed. HISTORY OF PRESENT ILLNESS: Mr. Perry is an 85-year-old gentleman, who was recently at rehab in [place] after having COVID infection here. He was there from 10/11 to 10/19. Apparently, he had large maroon stools yesterday with hypotension. Hemoglobin had been 15.4 on 10/12, it was 8.5 on 10/19. He was transferred here. He has a history of heart failure, hypoxic respiratory failure from COVID when he was here before from 10/05 to 10/11. He was treated with Decadron and remdesivir at that time. He does have a prior history of coronary artery disease, bare-metal stent, EF of 30% to 35%, and an AICD placed in 2008 with biventricular defibrillator placed in 2014. He has had prior history of TIAs, prior stroke in 2012, type 2 diabetes, and diverticulosis coli. Apparently, he has a history of bladder cancer diagnosed in 03/2019. Presently, he is without complaints. Denies shortness of breath. Denies abdominal pain. PAST MEDICAL HISTORY: As above. PAST SURGICAL HISTORY: As above. SOCIAL HISTORY: Negative for alcohol, drugs, or tobacco. HOME MEDICATIONS: 1. Lovenox. 2. Coreg. 3. Aspirin. 4. Vitamin C. 5. Tylenol. 6. Plavix. 7. Vitamin D3. 8. Digoxin. 9. Advil. 10. Furosemide. 11. Folic acid. 12. Sotalol. 13. Protonix 40 mg daily. 14. Lisinopril. 15. Synthroid. 16. Insulin. 17. Tramadol. 18. Zinc sulfate. 19. Spironolactone. 20. He was on dexamethasone previously. PRESENT MEDICATIONS: 1. Protonix q.12. 2. Insulin sliding scale. 3. Dextrose, D5W. REVIEW OF SYSTEMS: Unable to be obtained other than lack of chest pain or shortness of breath at this time or abdominal pain. ALLERGIES: SIMVASTATIN. FAMILY HISTORY: Unknown. PHYSICAL EXAMINATION: VITAL SIGNS: Temperature pulse 63, blood pressure 124/58. LUNGS: Clear. HEART: Regular rate and rhythm without clicks or murmurs. ABDOMEN: Soft and nontender. There is no rebound. There is no guarding. EXTREMITIES: There is no clubbing, cyanosis, or edema. RECTAL: Reveals melena. LABORATORY DATA: Hemoglobin 8.7, this morning 7; white count 13.2; hemoglobin 8.5 on the 14th, 15.4 on 10/12. INR is 1 on the 14th. BUN and creatinine are 16 and 0.9. BUN was 35 on 10/12. Electrolytes normal. Liver function test normal. BNP 440. ASSESSMENT: 1. Gastrointestinal hemorrhage on Plavix and aspirin, recent steroids for COVID and NSAIDs. 2. Congestive heart failure, stable at this time. 3. Anemia, stable at 8.7 after hemorrhage, received 1 unit of blood yesterday at 1500. PLAN: Upper endoscopy today. I have called the patient's spouse and informed her of this. Job ID: [id number]
[2020-10-20] MEDS ORDERED: Dextrose 50% Abboject 50 ML SYRINGE ONE (12:31)
--- NOTE | 2020-10-20 12:43 | OP ---
DATE OF PROCEDURE: 10/20/2020 PREPROCEDURE DIAGNOSES: 1. GI hemorrhage. 2. Recent NSAID use. 3. Recent COVID infection with steroid treatment. 4. Chronic antiplatelet therapy for previous transient ischemic attacks and strokes. POSTPROCEDURE DIAGNOSES: Duodenal ulcer with visible vessel, treated with injection of 4 mL of 1:10,000 epinephrine and heater probe cautery 10-Sinhala with ablation of vessel. RECOMMENDATIONS: 1. Continue PPI. 2. Await about 72 hours before restarting Plavix. Avoid NSAIDs. Can take baby aspirin starting in a week. 3. If no bleeding, could change to oral PPI tomorrow and discharge in 24 to 48 hours back to custodial. He should probably just remain on a PPI for the remainder of his life or at least for the next 3 to 4 months for healing of ulcers. ANESTHESIA: TIVA. DESCRIPTION OF PROCEDURE: After the patient was informed of the risks, benefits, and possible complications of endoscopy including perforation, reaction to medication, and aspiration, informed consent was obtained and the patient was brought to the endoscopy suite, where he was sedated in gradual fashion. Once he was comfortable, a bite block was placed in the incisural orifice. The endoscope was advanced into the esophagus, stomach, into second and third portions of the duodenum and slowly removed. The esophagus was normal. The stomach was entered and found to be normal in forward and retroflexed views. In the duodenal bulb, there was duodenitis and a 1 cm white based ulcer with visible vessel with a heme pigment on it in the anterior-inferior wall. This was injected with 1:10,000 epinephrine and then the vessel was cauterized and ablated. The duodenum distal to this was normal. Retroflexed views in the stomach were normal. Scope was removed. The patient tolerated the procedure well. There were no complications. Job ID: [id number]
--- NOTE | 2020-10-20 14:39 | PDOC.HOSPP ---
- Subjective Encounter Date: 10/20/20 Subjective: Patient is doing better after transfusion. Less winded but still lethargic - Objective Vital Signs & Weight: Vital Signs (12 hours) Temp Pulse Resp BP BP Pulse Ox 10/20/20 07:40 97.9 F 63 14 124/58 L 99 10/20/20 04:06 97.5 F L 63 12 113/55 L 99 Weight Weight 141 lb 6.4 oz I&O: 10/19/20 10/20/20 10/21/20 06:59 06:59 06:59 Intake Total 0 Balance 0 Result Diagrams: 10/20/20 07:01 10/19/20 19:33 Additional Labs: Accuchecks 10/20/20 10/20/20 10/20/20 12:45 12:29 05:38 POC Glucose 117 H 69 L 87 - Exam General - other findings: In mild distress Eye: PERRL, anicteric sclera ENT: normocephalic atraumatic Neck: supple, symmetric Heart: RRR, no murmur Respiratory - other findings: decreased breath sounds - LLL Gastrointestinal: soft, non-tender, non-distended Extremities: 2+ LE edema Extremities - other findings: bilateral lower extremity edema Skin - other findings: less pale Psychiatric: normal affect, normal behavior Hosp A/P (1) Acute GI bleeding Code(s): K92.2 - GASTROINTESTINAL HEMORRHAGE, UNSPECIFIED Status: Acute (2) Hypothyroidism Code(s): E03.9 - HYPOTHYROIDISM, UNSPECIFIED Status: Acute (3) Pneumonia due to COVID-19 virus Code(s): U07.1 - COVID-19; J12.89 - OTHER VIRAL PNEUMONIA Status: Acute (4) Bladder cancer Status: Chronic (5) CAD (coronary artery disease) Code(s): I25.10 - ATHSCL HEART DISEASE OF [place] CORONARY ARTERY W/O ANG PCTRS Status: Chronic Qualifiers: Coronary Disease-Associated Artery/Lesion type: bypass graft [place] vs. transplanted heart: [place] heart Associated angina: without angina Qualified Code(s): I25.810 - Atherosclerosis of coronary artery bypass graft(s) without angina pectoris (6) H/O: CVA (cerebrovascular accident) Code(s): Z86.73 - PRSNL HX OF TIA (TIA), AND CEREB INFRC W/O RESID DEFICITS Status: Chronic (7) HTN (hypertension) Code(s): I10 - ESSENTIAL (PRIMARY) HYPERTENSION Status: Chronic Qualifiers: Hypertension type: essential hypertension Qualified Code(s): I10 - Essential (primary) hypertension (8) Ischemic cardiomyopathy Code(s): I25.5 - ISCHEMIC CARDIOMYOPATHY Status: Chronic - Plan Assessment 85 year old male with a PMH of CABG on DAPT, systolic CHF s/p AICD, CVA, IDDM and a recent diagnosis of COVID 19 ~ 1 week ago. He is presenting with lower GI bleeding with BRBPR and clots and has received 1 unit of pRBC prior to arrival. Patient has several risk factors to bleeding including recent steroid use of COVID, ongoing use of DAPT, and possibly ibuprofen use. s/p EGD on 10/20 Acute GI bleeding Acute blood loss anemia Recent COVID 19 PNA Generalized weakness Systolic CHF S/P AICD - last echo with WMA in the apical and basal wall of LV, EF 30-35% IDDM CVA PLAN: Continue telemetry monitoring Continue monitoring CBC q 6 hours, transfuse if < 8 Continue PPI injection with 40 mg IV BID Hold DAPT and IBUPROFEN. GI recommends resuming plavix in 3 days, ASA in 7 days. SCD for DVT ppx Follow up 2-D echo Start low dose IV lasix for dyspnea Patient states his cannot take care of him. I will order PT/OT and case management consult for potential placement
[2020-10-20] MEDS ORDERED: Furosemide 20 MG/2 ML VIAL SLOW IVP SCH (15:00)
[2020-10-20] MEDS: Pantoprazole 40 MG VIAL IVP SCH ×2 (15:38→20:48)
[2020-10-20 15:42] LABS: Band 7 % (5-11); Eosinophils 1 % (0-10); Hemoglobin 9.4 g/dL (14.0-18.0); Lymphocytes 12 % (21-51); MDiff Complete? YES; Mean Corpuscular HGB CONC 33.3 g/dL (32.0-36.0); Mean Corpuscular Hemoglobin 31.2 pg (27.0-31.0); Mean Corpuscular Volume 93.7 fL (78.0-98.0); Mean Platelet Volume 8.3 fL (7.4-10.4); Monocytes 7 % (0-10); Neutrophil 72 % (42-75); Platelet Count 139 thou/uL (130-400); Platelet Morphology Comment Appears Adequate; Polychromasia MODERATE = 3-4 cells (100X) (0-2/hpf); RBC Distribution Width 14.6 % (11.5-14.5); Reactive Lymphocytes 1 % (0-10); Red Blood Cell (RBC) Count 2.99 mill/uL (4.70-6.10); Target Cells MODERATE= 6-15 cells (100X) (0-1/hpf); Tear Drops SLIGHT = 2-5 cells (100X) (0-1/hpf); White Blood Cell (WBC) Count 22.6 thou/uL (4.8-10.8)
[2020-10-20 19:29] LABS: Bacteria/HPF None Seen HPF (None Seen); Bilirubin Negative (Negative); Blood, Urine Negative (Negative); Clarity Clear (Clear); Glucose, Urine (Dipstick) Normal (Negative); Ketone, Urine Negative (Negative); Leukocyte Negative Leu/uL (Negative); Nitrite Negative (Negative); Protein, Urine (Dipstick) Negative (Neg-Trace); RBC/HPF 0-3 HPF (0-3); Specific Gravity, Urine 1.008 (1.002-1.036); Squamous Epithelial 0-3 HPF (0-3); Urobilinogen Normal mg/dL (Less than 2); WBC/HPF 0-3 HPF (0-3)
[2020-10-20 19:35] LABS: Urine Culture Reflex No No
[2020-10-20 19:39] LABS: Lactic Acid 2.4 mmol/L (0.5-2.2)
[2020-10-20] MEDS ORDERED: HumaLOG 300 UNITS/3 ML VIAL SC PRN (21:55)
[2020-10-21] MEDS: HumaLOG 300 UNITS/3 ML VIAL SC PRN ×3 (05:34→17:07)
[2020-10-21 05:59] LABS: Hemoglobin 8.8 g/dL (14.0-18.0)
[2020-10-21] MEDS ORDERED: Furosemide 20 MG/2 ML VIAL SLOW IVP SCH (09:00)
[2020-10-21] MEDS: Pantoprazole 40 MG VIAL IVP SCH ×2 (09:04→21:30)
--- NOTE | 2020-10-21 09:15 | CT ---
CT ABDOMEN AND PELVIS WITH IV CONTRAST 10/21/2020 CLINICAL INFORMATION: Moderate stools. Fever. Covid positive. COMPARISON: 02/08/[address] thorax on 10/06/2020 Technique: Multiple contiguous axial CT images are obtained through the abdomen and pelvis with IV contrast. Cor onal reformatted images are provided. FINDINGS: Lower Chest: Incomplete imaging of a moderate to moderately large right pleural effusion with associa ayla consolidation similar to prior exam. Consolidation right lung base may be related to passive atelectasis; although, pneumonia would be difficult to exclude. Small left pleural effusion is again noted. The heart is enlarged. Partial visualization of the AICD leads. Minimal groundglass densities seen in the region of the lingula. Findings on prior CT thorax were suggestive of viral pne umonitis (Covid 19). Vessels: Extensive vascular calcifications are seen in the coronary arteries as well as involving the abdominal aorta and iliac arteries. Abdomen: Portal vein:Patent Gallbladder: Within normal limits for CT imaging. Liver: within normal limits. Spleen: Slight heterogeneity of the spleen which may be related to phase of imaging. Pancreas: within normal limits. Adrenals: Stable right adrenal nodule measuring 2.2 cm shown to represent adrenal adenoma prior exam. Left adrenal gland has a normal CT appearance. 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 Bowel: Colonic diverticulosis with small to moderate amount retained fecal material seen throughout t he colon suggesting constipation. There is no significant wall thickening involving the colon. Loops of small bowel are normal in caliber. Appendix: The appendix is visualized and normal in caliber. Peritoneum: No ascites or free air; no fluid collection. Mesentery and Retroperitoneum: Previously described mildly increased number and prominent lymph nodes in the left hemipelvis are again seen. The larger measured lymph nodes on prior study have decreased in size and measure less than 1 cm on today's exam Abdominal Wall: within normal limits. Pelvis: Reproductive Organs: Prostate gland remains mildly enlarged and heterogeneous in appearance. Greatest transverse dimension is 5 cm. Bladder: within normal limits. Bones: Mild degenerative changes are seen in the spine. No suspicious lytic or sclerotic osseous lesi ons are identified. IMPRESSION: 1. Groundglass density in the lingula which could be related to volume loss. However, findings relate d to Covid pneumonia is a possibility given patient's history and findings on CT thorax on 10/06/2020. 2. Moderately large right and small left pleural effusions with associated passive atelectasis. 3. Cardiomegaly. 4. Extensive vascular calcifications. 5. Bilateral renal cysts. 6. Colonic diverticulosis. There is no wall thickening seen involving the colon to suggest colitis. 7. Nonspecific mild increased number of lymph nodes in the left pelvis. The larger sized lymph nodes on prior exam have decreased in size. 8. Stable right adrenal nodule.
[2020-10-21 10:50] LABS: #Eosinphils 0.1 thou/uL (0.0-0.7); #Lymphocytes 1.7 thou/uL (1.20-3.40); #Monocytes 1.1 thou/uL (0.11-0.59); #Neutrophils 12.3 thou/uL (1.40-6.50); %Basophils 0.2 % (0.0-1.0); %Eosinophils 0.6 % (0.0-10.0); %Lymphocytes 11.1 % (21.0-51.0); %Monocytes 7.5 % (0.0-10.0); %Neutrophils 80.6 % (42.0-75.0); Hemoglobin 8.7 g/dL (14.0-18.0); Mean Corpuscular Hemoglobin 31.7 pg (27.0-31.0); Mean Corpuscular Volume 93.1 fL (78.0-98.0); Mean Platelet Volume 8.1 fL (7.4-10.4); Platelet Count 162 thou/uL (130-400); RBC Distribution Width 15.1 % (11.5-14.5); Red Blood Cell (RBC) Count 2.73 mill/uL (4.70-6.10); White Blood Cell (WBC) Count 15.3 thou/uL (4.8-10.8)
[2020-10-21] MEDS ORDERED: Iopamidol-370 76% 500 ML 1 ML ONE (10:55)
[2020-10-21 11:07] LABS: Lactic Acid 2.6 mmol/L (0.5-2.2)
--- NOTE | 2020-10-21 11:11 | PDOC.HOSPP ---
- Subjective Encounter Date: 10/21/20 Subjective: Patient appears less winded this morning. Still deconditioned. Stable on room air. Having diarrhea this morning. - Objective Vital Signs & Weight: Vital Signs (12 hours) Temp Pulse Resp BP Pulse Ox 10/21/20 07:45 98.2 F 74 20 131/64 99 10/21/20 03:47 98 F 78 26 H 149/66 H 98 10/21/20 00:30 98.2 F 81 22 H 141/65 H 95 Weight Weight 142 lb 4.8 oz I&O: 10/20/20 10/21/20 10/22/20 06:59 06:59 06:59 Intake Total 0 600 Balance 0 600 Result Diagrams: 10/21/20 10:41 10/19/20 19:33 Additional Labs: Accuchecks 10/21/20 10/20/20 10/20/20 05:31 20:55 16:49 POC Glucose 277 H 281 H 130 H 10/20/20 10/20/20 12:45 12:29 POC Glucose 117 H 69 L Hospitalist ROS - Medication Medications: Active Medications Generic Name Dose Route Start Last Admin Trade Name Freq PRN Reason Stop Dose Admin Furosemide 20 mg 10/21/20 09:00 10/21/20 09:03 Furosemide 20 Mg/2 Ml Vial SLOW IVP 20 mg DAILY JATIN Administration Insulin Human Lispro 0 units 10/19/20 19:08 10/21/20 05:34 Humalog 300 Units/3 Ml Vial SC 4 units .MILD SLIDING SCALE PRN Administration Mild Correctional Scale Insulin Human Lispro 0 units 10/20/20 21:55 10/20/20 22:44 Humalog 300 Units/3 Ml Vial SC 3 unit .BEDTIME SLIDING SC PRN Administration Bedtime Correctional Scale Pantoprazole Sodium 40 mg 10/20/20 09:00 10/21/20 09:04 Pantoprazole 40 Mg Vial IVP 40 mg Q12HR JATIN Administration - Exam General - other findings: Lethargic and deconditioned Eye: anicteric sclera ENT: normocephalic atraumatic Heart: RRR, no murmur Respiratory - other findings: Diminished breath sounds - R lung ruth Gastrointestinal: soft, non-tender, non-distended, normal bowel sounds Extremities: 2+ LE edema Extremities - other findings: Bilateral lower extremity edema Musculoskeletal: generalized weakness Psychiatric: lethargic Hosp A/P (1) Acute GI bleeding Code(s): K92.2 - GASTROINTESTINAL HEMORRHAGE, UNSPECIFIED Status: Acute (2) Hypothyroidism Code(s): E03.9 - HYPOTHYROIDISM, UNSPECIFIED Status: Acute (3) Pneumonia due to COVID-19 virus Code(s): U07.1 - COVID-19; J12.89 - OTHER VIRAL PNEUMONIA Status: Acute (4) Bladder cancer Status: Chronic (5) CAD (coronary artery disease) Code(s): I25.10 - ATHSCL HEART DISEASE OF [place] CORONARY ARTERY W/O ANG PCTRS Status: Chronic Qualifiers: Coronary Disease-Associated Artery/Lesion type: bypass graft [place] vs. transplanted heart: [place] heart Associated angina: without angina Qualified Code(s): I25.810 - Atherosclerosis of coronary artery bypass graft(s) without angina pectoris (6) H/O: CVA (cerebrovascular accident) Code(s): Z86.73 - PRSNL HX OF TIA (TIA), AND CEREB INFRC W/O RESID DEFICITS Status: Chronic (7) HTN (hypertension) Code(s): I10 - ESSENTIAL (PRIMARY) HYPERTENSION Status: Chronic Qualifiers: Hypertension type: essential hypertension Qualified Code(s): I10 - Essential (primary) hypertension (8) Ischemic cardiomyopathy Code(s): I25.5 - ISCHEMIC CARDIOMYOPATHY Status: Chronic - Plan Assessment 85 year old male with a PMH of CABG on DAPT, systolic CHF s/p AICD, CVA, IDDM and a recent diagnosis of COVID 19 ~ 1 week ago. He presented with lower GI bleeding with BRBPR and clots and has received 1 unit of pRBC prior to arrival. Patient has several risk factors to bleeding including recent steroid use of COVID, ongoing use of DAPT, and possibly ibuprofen use. EGD on 10/20 showed duodenal ulcer and visible vessel, S/P epinephrine injection and ablation. H/H has been stable. His hospital course has been complicated by rising WBC, and lactic acidosis. Ddx include parapneumonic effusion as per CT, decompensated CHF and c. difficile infection given ongoing diarrhea. WBC improved overnight after lasix challenge on 10/20. Diarrhea Parapneumonic effusion Lactic acidosis Possible acute on chronic systolic CHF - S/P AICD - last echo 2018 with WMA in the apical and basal wall of LV, EF 30-35% Acute GI bleeding Acute blood loss anemia Recent COVID 19 PNA Generalized weakness IDDM CVA PLAN: Check c difficile Start on zosyn on 10/21 Continue trending lactic acid q 4 hours Another lasix challenge, this time 20 mg IV BID I will repeat 2-D echo Resume home dose of coreg and spironolactone If BP tolerates, I will add afterload reducing agent tomorrow Strict I/O Continue PPI injection with 40 mg IV BID Hold DAPT and IBUPROFEN. GI recommends resuming plavix in 2 days, ASA in 6 days. SCD for DVT ppx Patient states his cannot take care of him. PT/OT and case management have been consulted for potential placement
[2020-10-21] MEDS: Piperacillin/Tazobactam 3.375 GM in Sodium Chloride 0.9% 100 ML IVPB SCH ×3 (12:18→23:54)
[2020-10-21] MEDS: Furosemide 20 MG/2 ML VIAL SLOW IVP SCH (12:20)
[2020-10-21 12:25] LABS: Lactic Acid 3.4 mmol/L (0.5-2.2)
[2020-10-21 14:46] LABS: Anion Gap 18 mmol/L (10-20); BUN (Urea Nitrogen) 37 mg/dL (8.4-25.7); Calc. Creatinine Clearance 45 mL/min (70-130); Calcium 8.4 mg/dL (7.8-10.44); Carbon Dioxide 24 mmol/L (23-31); Chloride 98 mmol/L (98-107); Glucose 367 mg/dL (83-110); Magnesium 2.1 mg/dL (1.6-2.6); Potassium 4.5 mmol/L (3.5-5.1); Sodium 135 mmol/L (136-145)
[2020-10-21] MEDS ORDERED: Furosemide 20 MG/2 ML VIAL SLOW IVP PRN ×2 (14:54→18:29)
[2020-10-21] MEDS: Albumin 25% 25 GM/100 ML BOT IVPB SCH ×2 (14:59→21:30)
--- NOTE | 2020-10-21 16:52 | PRG ---
DATE OF SERVICE: 10/21/2020 SUBJECTIVE: Mr. Perry is said to have bowel movements today. He reports he wants to have some more milk. Talking with nurse, she said no bleeding. MEDICATIONS: 1. Carvedilol. 2. Ascorbic acid. 3. Albumin. 4. D5W. 5. Furosemide. 6. Insulin. 7. Protonix 40 IV q.12. 8. Zosyn. 9. Spironolactone. 10. Zinc sulfate. OBJECTIVE: VITAL SIGNS: Temperature 98, pulse 82, blood pressure 152/69. GENERAL: He is frail and thin, but he is alert and oriented. He is in no distress. LUNGS: Clear. Decreased breath sounds at bases. HEART: Regular rhythm. ABDOMEN: Soft, nontender. LABORATORY DATA: The patient had a CAT scan done earlier today, cardiomegaly, pleural effusion, anasarca. ASSESSMENT: 1. Gastrointestinal bleed from duodenal ulcer yesterday status post control of hemorrhage on PPIs. Hemoglobin stable at 8.7. 2. White blood cell count down from 22,000 to 15,000. Blood cultures negative from the . The urine culture sent. 3. History of bladder cancer. RECOMMENDATIONS: 1. Can move PPI to oral tomorrow. 2. Advance diet as tolerated. 3. We will follow up on gastric biopsies when they are available, but I suspect his bleeding is related to NSAID use, Plavix, and necessity of using steroids during his COVID infection. Job ID: [id number]
[2020-10-21] MEDS ORDERED: Spironolactone 25 MG TAB PO SCH (17:30)
[2020-10-21 18:18] LABS: Lactic Acid 2.4 mmol/L (0.5-2.2)
--- NOTE | 2020-10-21 19:16 | CON ---
DATE OF CONSULTATION: 10/21/2020 REASON FOR CONSULTATION: Congestive heart failure. PRIMARY CAR SPOTTER: Dr. Ian Tong. HISTORY OF PRESENT ILLNESS: Mr. Perry is an 85-year-old gentleman, who was admitted to the hospital with gastrointestinal bleeding. He did receive fluid. I do not believe he actually got transfused, he was typed and crossed, but he did receive quite a bit of fluid. He has developed increasing edema. He has been started on diuretics and responding well to the diuretics. The notes indicate he has an ejection fraction of 30% to 35%, history of coronary artery disease, previous bare metal stent, defibrillator placed in 2008, biventricular defibrillator placed in 2014. Not having chest pain or pressure. MEDICINES: Please see nurse's notes. 1. He is receiving intravenous diuretics with good response. Also receiving; 1. Pantoprazole. 2. Antibiotics. 3. Carvedilol. REVIEW OF SYSTEMS: CONSTITUTIONAL: No significant weight gain or loss. VISION: No changes. HEARING: No changes. PULMONARY: He is not short of breath. CARDIAC: No chest pain. GASTROINTESTINAL: No nausea, vomiting, or diarrhea. ALLERGIES: TO LISINOPRIL AND SIMVASTATIN. PHYSICAL EXAMINATION: GENERAL: This is a pleasant and very frail-appearing elderly gentleman, 85 years. VITAL SIGNS: Blood pressure is 152/69. Pulse 82, regular. LUNGS: Clear. CARDIAC: Normal S1, normal S2. ABDOMEN: Soft and nontender. EXTREMITIES: Warm and dry. No clubbing or cyanosis. There is moderate edema. LABORATORY DATA: Potassium is 4.5, creatinine 1.08. ASSESSMENT: 1. Congestive heart failure, systolic, chronic. 2. Volume overloaded, improving. 3. History of gastrointestinal bleed. PLAN: 1. We will add spironolactone. 2. We will follow with you. 3. Continue carvedilol. 4. Intolerant to EMILY inhibitors or allergy. Job ID: [id number]
[2020-10-21] MEDS ORDERED: Insulin Glargine 30 UNITS in Pre-Filled Syringe 1 EACH SC SCH (21:00)
[2020-10-21] MEDS: Sotalol HCl 80 MG TAB PO SCH (21:30)
[2020-10-22 05:39] LABS: Anion Gap 15 mmol/L (10-20); BUN (Urea Nitrogen) 41 mg/dL (8.4-25.7); Calc. Creatinine Clearance 44 mL/min (70-130); Calcium 8.6 mg/dL (7.8-10.44); Carbon Dioxide 32 mmol/L (23-31); Chloride 97 mmol/L (98-107); Glucose 202 mg/dL (83-110); Magnesium 2.3 mg/dL (1.6-2.6); Phosphorus 3.3 mg/dL (2.3-4.7); Potassium 3.7 mmol/L (3.5-5.1); Sodium 140 mmol/L (136-145)
[2020-10-22 05:51] LABS: #Eosinphils 0.1 thou/uL (0.0-0.7); #Lymphocytes 1.4 thou/uL (1.20-3.40); #Monocytes 0.8 thou/uL (0.11-0.59); #Neutrophils 6.7 thou/uL (1.40-6.50); %Basophils 0.1 % (0.0-1.0); %Lymphocytes 15.8 % (21.0-51.0); %Monocytes 8.6 % (0.0-10.0); %Neutrophils 74.6 % (42.0-75.0); Hemoglobin 7.5 g/dL (14.0-18.0); Mean Corpuscular HGB CONC 33.3 g/dL (32.0-36.0); Mean Corpuscular Hemoglobin 31.2 pg (27.0-31.0); Mean Corpuscular Volume 93.6 fL (78.0-98.0); Mean Platelet Volume 8.3 fL (7.4-10.4); Platelet Count 119 thou/uL (130-400); Platelet Morphology Comment Appears Decreased; RBC Distribution Width 15.1 % (11.5-14.5)
[2020-10-22] MEDS: Piperacillin/Tazobactam 3.375 GM in Sodium Chloride 0.9% 100 ML IVPB SCH ×3 (06:26→17:02)
[2020-10-22] MEDS: Furosemide 20 MG/2 ML VIAL SLOW IVP SCH ×2 (06:27→13:49)
[2020-10-22] MEDS: HumaLOG 300 UNITS/3 ML VIAL SC PRN ×2 (06:27→11:25)
[2020-10-22] MEDS: Levothyroxine Sodium 25 MCG TAB PO SCH (06:27)
[2020-10-22] MEDS ORDERED: Dextrose 5% in Water 1,000 ML IV PRN (07:25)
[2020-10-22] MEDS ORDERED: Dextrose 50% Abboject 50 ML SYRINGE SLOW IVP PRN (07:25)
[2020-10-22 08:04] LABS: Lactic Acid 1.5 mmol/L (0.5-2.2)
[2020-10-22] MEDS: Spironolactone 25 MG TAB PO SCH (08:58)
[2020-10-22] MEDS: Ascorbic Acid 500 mg Chewable Tablet PO SCH (08:59)
[2020-10-22] MEDS: Zinc Sulfate 220 MG CAP PO SCH (08:59)
[2020-10-22] MEDS: Carvedilol 6.25 MG TAB PO SCH (08:59)
[2020-10-22] MEDS: Cholecalciferol (Vitamin D3) 400 UNITS TAB PO SCH (08:59)
[2020-10-22] MEDS: Sotalol HCl 80 MG TAB PO SCH ×2 (08:59→22:00)
[2020-10-22] MEDS: Multivitamin W/ Minerals 1 TAB PO SCH (08:59)
[2020-10-22] MEDS ORDERED: Spironolactone 25 MG TAB PO SCH (09:00)
--- NOTE | 2020-10-22 11:10 | PDOC.HOSPP ---
- Subjective Encounter Date: 10/22/20 Subjective: Patient is significantly improved after albumin/diuresis challenge. OFF supplemental O2. Downgraded. He is less winded, more energetic - Objective Vital Signs & Weight: Vital Signs (12 hours) Temp Pulse Resp BP Pulse Ox 10/22/20 08:59 63 10/22/20 08:20 95 10/22/20 08:04 98.3 F 63 20 134/81 95 10/21/20 23:40 97.9 F 65 20 108/53 L 96 Weight Weight 142 lb 4.8 oz I&O: 10/21/20 10/22/20 10/23/20 06:59 06:59 06:59 Intake Total 600 200 650 Balance 600 200 650 Result Diagrams: 10/22/20 04:45 10/22/20 04:45 Additional Labs: Accuchecks 10/21/20 10/21/20 10/21/20 21:33 16:29 11:31 POC Glucose 415 H 351 H 243 H Hospitalist ROS - Medication Medications: Active Medications Generic Name Dose Route Start Last Admin Trade Name Federicoq PRN Reason Stop Dose Admin Ascorbic Acid 1,000 mg 10/22/20 09:00 10/22/20 08:59 Ascorbic Acid 500 Mg Chewable Tablet PO 1,000 mg DAILY JATIN Administration Carvedilol 12.5 mg 10/22/20 09:00 10/22/20 08:59 Carvedilol 6.25 Mg Tab PO 12.5 mg DAILY JATIN Administration Cholecalciferol 400 units 10/22/20 09:00 10/22/20 08:59 Cholecalciferol (Vitamin D3) 400 Units Tab PO 400 units DAILY JATIN Administration Furosemide 20 mg 10/21/20 14:00 10/22/20 06:27 Furosemide 20 Mg/2 Ml Vial SLOW IVP 20 mg 0600,1400 JATIN Administration Furosemide 20 mg 10/21/20 18:29 10/21/20 23:55 Furosemide 20 Mg/2 Ml Vial SLOW IVP 20 mg DAILYPRN PRN Administration Edema Piperacillin Sod/Tazobactam 100 mls @ 200 mls/hr 10/21/20 12:00 10/22/20 06:26 Sod 3.375 gm/ Sodium Chloride IVPB 100 mls Q6HR JATIN Administration Insulin Human Lispro 0 units 10/20/20 21:55 10/20/20 22:44 Humalog 300 Units/3 Ml Vial SC 3 unit .BEDTIME SLIDING SC PRN Administration Bedtime Correctional Scale Iron/Minerals/Multivitamins 1 tab 10/22/20 09:00 10/22/20 08:59 Multivitamin W/ Minerals 1 Tab PO 1 tab DAILY JATIN Administration Levothyroxine Sodium 25 mcg 10/22/20 06:00 10/22/20 06:27 Levothyroxine Sodium 25 Mcg Tab PO 25 mcg 0600 JATIN Administration Pantoprazole Sodium 40 mg 10/22/20 09:00 10/22/20 08:59 Pantoprazole 40 Mg Tab PO 40 mg BID JATIN Administration Sotalol HCl 40 mg 10/21/20 21:00 10/22/20 08:59 Sotalol Hcl 80 Mg Tab PO 40 mg BID JATIN Administration Spironolactone 25 mg 10/22/20 08:00 10/22/20 08:58 Spironolactone 25 Mg Tab PO 25 mg QAM-WM JATIN Administration Zinc Sulfate 220 mg 10/22/20 09:00 10/22/20 08:59 Zinc Sulfate 220 Mg Cap PO 220 mg DAILY JATIN Administration - Exam General - other findings: more alert and awake, still slightly deconditioned. Less dyspneic Eye: anicteric sclera ENT: normocephalic atraumatic Neck: JVD Heart: RRR, no murmur Respiratory - other findings: Decreased breath sounds - R lung ruth Gastrointestinal: soft, non-tender, non-distended Extremities: 1+ LE edema Extremities - other findings: Bilateral lower extremity edema Psychiatric: lethargic Hosp A/P (1) Acute GI bleeding Code(s): K92.2 - GASTROINTESTINAL HEMORRHAGE, UNSPECIFIED Status: Acute (2) Hypothyroidism Code(s): E03.9 - HYPOTHYROIDISM, UNSPECIFIED Status: Acute (3) Pneumonia due to COVID-19 virus Code(s): U07.1 - COVID-19; J12.89 - OTHER VIRAL PNEUMONIA Status: Acute (4) Bladder cancer Status: Chronic (5) CAD (coronary artery disease) Code(s): I25.10 - ATHSCL HEART DISEASE OF [place] CORONARY ARTERY W/O ANG PCTRS Status: Chronic Qualifiers: Coronary Disease-Associated Artery/Lesion type: bypass graft [place] vs. transplanted heart: [place] heart Associated angina: without angina Qualified Code(s): I25.810 - Atherosclerosis of coronary artery bypass graft(s) without angina pectoris (6) H/O: CVA (cerebrovascular accident) Code(s): Z86.73 - PRSNL HX OF TIA (TIA), AND CEREB INFRC W/O RESID DEFICITS Status: Chronic (7) HTN (hypertension) Code(s): I10 - ESSENTIAL (PRIMARY) HYPERTENSION Status: Chronic Qualifiers: Hypertension type: essential hypertension Qualified Code(s): I10 - Essential (primary) hypertension (8) Ischemic cardiomyopathy Code(s): I25.5 - ISCHEMIC CARDIOMYOPATHY Status: Chronic - Plan Assessment 85 year old male with a PMH of CABG on DAPT, systolic CHF s/p AICD, CVA, IDDM and a recent diagnosis of COVID 19 ~ 1 MORNING SHOW HOST. He presented with lower GI bleeding with BRBPR and clots and has received 1 unit of pRBC prior to arrival. Patient has several risk factors to bleeding including recent steroid use of COVID, ongoing use of DAPT, and possibly ibuprofen use. EGD on 10/20 showed duodenal ulcer and visible vessel, S/P epinephrine injection and ablation. H/H has been stable. His hospital course has been complicated by rising WBC, and lactic acidosis. Ddx include parapneumonic effusion as per CT, decompensated CHF. Responding to zosyn, along with albumin/diuresis challenge. 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 Continue lasix 20 mg BID No need for albumin challenge today as lactic acidosis resolved I appreciate cardiology assistance with optimizing his CHF regimen. He is currently on coreg and spironolactone. Monitor I/O Switch IV PPI to PO Hold DAPT,and discontinuie IBUPROFEN indefinitely. GI recommends resuming plavix in 1 day, ASA in 5 days. SCD for DVT ppx Patient states his cannot take care of him. PT/OT and case management have been consulted for potential placement
--- NOTE | 2020-10-22 11:43 | PRG ---
DATE OF SERVICE: 10/22/2020 SUBJECTIVE: Mr. Perry looks much better today. He is breathing easier. No chest pain or pressure. OBJECTIVE: VITAL SIGNS: His blood pressure is 134/81, pulse in the 60s. LUNGS: Clear. CARDIAC: Normal S1. Normal S2. EXTREMITIES: Only mild edema. LABORATORY DATA: Reveals BNP 1997. Echocardiogram reveals ejection fraction is markedly diminished at 25% to 30%. ASSESSMENT: 1. Congestive heart failure, systolic, acute on chronic, improved. 2. Intolerance to EMILY inhibitors. 3. Anemia. PLAN: 1. I have added spironolactone. 2. Continue diuretics and carvedilol. No other recommendations at this point. We would hold off on hydralazine for now, the blood pressure is still variable. He seems to be doing better today. Job ID: [id number]
--- NOTE | 2020-10-22 14:44 | PRG ---
DATE OF SERVICE: 10/22/2020 GI followup. Mr. Perry without complaints. Nurses note he is having no bleeding or melena. He has remained in the hospital for heart failure, acute on chronic. OBJECTIVE: VITAL SIGNS: Temperature is 97, pulse 63, blood pressure . GENERAL: He is resting in bed. He is eating full liquids. ABDOMEN: Soft, nontender. LABORATORY DATA: Hemoglobin 7.5, white count is 9, platelet count 119. BUN and creatinine are 41 and 1. ASSESSMENT: 1. Anemia secondary to GI bleed. No evidence of active bleeding now. 2. Bleeding was likely due to the NSAIDs and steroids for his COVID. 3. Heart failure. RECOMMENDATION: Will change PPI to p.o. We will defer to primary service regarding transfusion. Received some albumin yesterday. With his significant heart disease, would keep hemoglobin greater than 7.5. If I can be of any further assistance in patient's care, please do not hesitate to contact me. Job ID: [id number]
[2020-10-22] MEDS ORDERED: Potassium Chloride 20 MEQ TAB PO SCH (17:00)
[2020-10-22] MEDS ORDERED: Insulin Glargine 35 UNITS in Pre-Filled Syringe 1 EACH SC SCH (21:00)
[2020-10-23] MEDS: Piperacillin/Tazobactam 3.375 GM in Sodium Chloride 0.9% 100 ML IVPB SCH ×4 (00:42→16:19)
[2020-10-23 05:12] LABS: Anion Gap 18 mmol/L (10-20); BUN (Urea Nitrogen) 51 mg/dL (8.4-25.7); Calc. Creatinine Clearance 34 mL/min (70-130); Calcium 8.7 mg/dL (7.8-10.44); Carbon Dioxide 26 mmol/L (23-31); Chloride 99 mmol/L (98-107); Glucose 173 mg/dL (83-110); Magnesium 2.4 mg/dL (1.6-2.6); Potassium 4.6 mmol/L (3.5-5.1); Sodium 138 mmol/L (136-145)
[2020-10-23 05:30] LABS: #Eosinphils 0.1 thou/uL (0.0-0.7); #Lymphocytes 1.6 thou/uL (1.20-3.40); #Monocytes 1.1 thou/uL (0.11-0.59); #Neutrophils 9.5 thou/uL (1.40-6.50); %Basophils 0.1 % (0.0-1.0); %Eosinophils 0.7 % (0.0-10.0); %Lymphocytes 13.2 % (21.0-51.0); %Monocytes 8.8 % (0.0-10.0); %Neutrophils 77.3 % (42.0-75.0); Hemoglobin 8.9 g/dL (14.0-18.0); Mean Corpuscular HGB CONC 32.8 g/dL (32.0-36.0); Mean Corpuscular Hemoglobin 31.3 pg (27.0-31.0); Mean Corpuscular Volume 95.5 fL (78.0-98.0); Mean Platelet Volume 8.7 fL (7.4-10.4); Platelet Count 119 thou/uL (130-400); RBC Distribution Width 15.5 % (11.5-14.5); Red Blood Cell (RBC) Count 2.84 mill/uL (4.70-6.10); White Blood Cell (WBC) Count 12.3 thou/uL (4.8-10.8)
[2020-10-23] MEDS: Furosemide 20 MG/2 ML VIAL SLOW IVP SCH (05:45)
[2020-10-23] MEDS: HumaLOG 300 UNITS/3 ML VIAL SC PRN ×2 (05:45→11:24)
[2020-10-23] MEDS: Levothyroxine Sodium 25 MCG TAB PO SCH (05:45)
[2020-10-23] MEDS: Spironolactone 25 MG TAB PO SCH (08:48)
[2020-10-23] MEDS: Ascorbic Acid 500 mg Chewable Tablet PO SCH (08:48)
[2020-10-23] MEDS: Zinc Sulfate 220 MG CAP PO SCH (08:49)
[2020-10-23] MEDS: Cholecalciferol (Vitamin D3) 400 UNITS TAB PO SCH (08:49)
[2020-10-23] MEDS: Sotalol HCl 80 MG TAB PO SCH (08:49)
[2020-10-23] MEDS: Multivitamin W/ Minerals 1 TAB PO SCH (08:49)
[2020-10-23] MEDS: Carvedilol 6.25 MG TAB PO SCH (08:49)
--- NOTE | 2020-10-23 12:03 | PDOC.DS.DS ---
Provider - Provider Date of Admission: 10/19/20 18:10 Date of Discharge: 10/23/20 Admitting Provider: Prince Preethi Segal MD Consultations: Cardiology, Gastroentrology Primary Care Physician: John Armas MD Course - Hospital Course Hospital Course: Patient is a 85-year-old male with a known past medical history of coronary artery disease status post CABG and on dual antiplatelet therapy, systolic CHF status post AICD last EF of 25 to 30%, and a recent diagnosis of COVID-19 pneumonia treated with dexamethasone. Presented to the hospital with GI bleeding which was most likely medication induced. He was also taking ibuprofen at the time. His EGD showed duodenal ulcer and visible vessel. He underwent epinephrine injection and ablation. His hospital course was complicated by a parapneumonic effusion and decompensated CHF. He responded well to Zosyn (day 3/7) and albumin plus Lasix challenge. Is currently on room air. Euvolemic. His furosemide was held today due to a mild bump in creatinine. I have called Dr. Armas, who is patient's PCP. I requested that his Lasix be held an additional day and be resumed if renal function is appropriate. Patient can resume his Plavix tomorrow and his aspirin in 4 days. - Labs Lab Results: 10/23/20 04:40 10/23/20 04:40 Abnormal Lab Results - Last 48 hrs 10/19/20 19:15: Crossmatch See Detail 10/21/20 11:59: B-Natriuretic Peptide 1602.9 H 10/21/20 11:59: Lactic Acid 3.4 H 10/21/20 14:20: Sodium 135 L, BUN 37 H 10/21/20 17:41: Lactic Acid 2.4 H 10/22/20 04:45: Chloride 97 L, Carbon Dioxide 32 H, BUN 41 H 10/22/20 04:45: RBC 2.40 L, Hgb 7.5 L, Hct 22.5 L, MCH 31.2 H, RDW 15.1 H, Plt Count 119 L, Lymphocytes % 15.8 L, Neutrophils # 6.7 H, Monocytes # 0.8 H, Plt Morphology Comment Appears Decreased L 10/22/20 04:45: B-Natriuretic Peptide 1998.0 H 10/23/20 04:40: BUN 51 H, Creatinine 1.41 H 10/23/20 04:40: WBC 12.3 H, RBC 2.84 L, Hgb 8.9 L, Hct 27.1 L, MCH 31.3 H, RDW 15.5 H, Plt Count 119 L, Neutrophils % 77.3 H, Lymphocytes % 13.2 L, Neutrophils # 9.5 H, Monocytes # 1.1 H 10/23/20 07:33: B-Natriuretic Peptide 1817.5 H Microbiology - Entire Visit 10/20/20 17:15 Venous blood - Left Hand Blood Culture - Preliminary NO GROWTH AT 48 HOURS 10/20/20 17:02 Venous blood - Right Hand Blood Culture - Preliminary NO GROWTH AT 48 HOURS - Physical Exam Vitals: Vital Signs (12 hours) Temp Pulse Resp BP BP BP Pulse Ox 10/23/20 11:28 97.5 F L 70 18 111/53 L 93 L 10/23/20 08:49 63 119/58 L 10/23/20 07:44 97.9 F 63 16 118/56 L 96 10/23/20 07:40 96 10/23/20 03:58 96.8 F L 64 28 H 120/57 L 98 10/23/20 00:31 97.2 F L 65 32 H 133/88 96 Weight Weight 142 lb 4.8 oz Physical Exam: The patient was seen and examined on the day of discharge. General: More alert and awake HEENT: Head atraumatic, normocephalic. EOM intact Pulmonary: Lungs are clear to auscultation bilaterally CVS: Mild JVD . normal S1 and S2. Regular rate. Abdomen: Soft, nontender, nondistended Extremities: 1+ lower extremity edema Skin: warm and well perfused Psych: Mood and affect appropriate. Neuro: Grossly intact Problem - Discharge Plan Assessment: Please refer to hospital course - Problem (1) Acute GI bleeding Code(s): K92.2 - GASTROINTESTINAL HEMORRHAGE, UNSPECIFIED Status: Acute (2) Hypothyroidism Code(s): E03.9 - HYPOTHYROIDISM, UNSPECIFIED Status: Acute (3) Pneumonia due to COVID-19 virus Code(s): U07.1 - COVID-19; J12.89 - OTHER VIRAL PNEUMONIA Status: Acute (4) Bladder cancer Status: Chronic (5) CAD (coronary artery disease) Code(s): I25.10 - ATHSCL HEART DISEASE OF [place] CORONARY ARTERY W/O ANG PCTRS Status: Chronic Qualifiers: Coronary Disease-Associated Artery/Lesion type: bypass graft [place] vs. transplanted heart: [place] heart Associated angina: without angina Qualified Code(s): I25.810 - Atherosclerosis of coronary artery bypass graft(s) without angina pectoris (6) H/O: CVA (cerebrovascular accident) Code(s): Z86.73 - PRSNL HX OF TIA (TIA), AND CEREB INFRC W/O RESID DEFICITS Status: Chronic (7) HTN (hypertension) Code(s): I10 - ESSENTIAL (PRIMARY) HYPERTENSION Status: Chronic Qualifiers: Hypertension type: essential hypertension Qualified Code(s): I10 - Essential (primary) hypertension (8) Ischemic cardiomyopathy Code(s): I25.5 - ISCHEMIC CARDIOMYOPATHY Status: Chronic Plan - Discharge Medications Home Medications: Medication Instructions Recorded Confirmed Type Carvedilol [Coreg] 12.5 mg PO DAILY 03/16/13 10/20/20 History Spironolactone [Aldactone] 12.5 mg PO DAILY 03/16/13 10/20/20 History Folic Acid/Multivit-Min/Lutein 1 tab PO DAILY 03/17/19 10/20/20 History [Centrum Silver Chewable] Levothyroxine Sodium [Synthroid] 25 mcg PO DAILY 03/17/19 10/20/20 History Clopidogrel Bisulfate [Plavix] 75 mg PO DAILY #30 tab 03/31/19 10/20/20 Rx Sotalol HCl [Sotalol] 40 mg PO BID 08/28/20 10/20/20 History traMADol HCl [Tramadol HCl] 50 mg PO QID PRN 08/28/20 10/20/20 History Ascorbic Acid [Vitamin C] 1,000 mg PO DAILY tab 10/11/20 10/20/20 Rx Cholecalciferol (Vitamin D3) 400 units PO DAILY tab 10/11/20 10/20/20 Rx [Vitamin D3] Zinc Sulfate 220 mg PO DAILY cap 10/11/20 10/20/20 Rx Aspirin Chewable [Aspirin Chewable 81 mg PO DAILY #30 tab 10/23/20 10/20/20 Rx Tablet] Furosemide [Lasix] 40 mg PO DAILY-AC #0 tab 10/23/20 10/20/20 Rx Insulin Glargine [Lantus Vial] 35 units SC HS vial 10/23/20 Rx Pantoprazole [Protonix] 40 mg PO BID tab 10/23/20 Rx Piperacillin/Tazobactam [Zosyn] 3.375 gm IVPB Q8HR vial 10/23/20 Rx Spironolactone [Aldactone] 25 mg PO QAM-WM tab 10/23/20 Rx Allergies: lisinopril Allergy (Verified 10/21/20 05:50) simvastatin Allergy (Verified 10/20/20 02:51) Causes Myalgia - Follow up Plan Referrals: John Armas MD [Primary Care Provider] - Disposition: HOME Quality - Care Measures CORE MEASURES:: N/A - Stroke/TIA Did you prescribe antithrombotic therapy?: Yes
--- NOTE | 2020-10-23 13:48 | PRG ---
DATE OF SERVICE: 10/23/2020 SUBJECTIVE: Mr. Perry is breathing better. He is feeling better. He has no complaints. OBJECTIVE: VITAL SIGNS: His blood pressure is 111/50, pulse 70. LUNGS: Clear. CARDIAC: Normal S1, normal S2. ABDOMEN: Soft and nontender. LABORATORY DATA: Hemoglobin is 8.9. Creatinine is 1.4. ASSESSMENT: Congestive heart failure, systolic, improved, but his renal function has deteriorated after furosemide and spironolactone. PLAN: 1. Agree with holding furosemide. 2. Off spironolactone. I think, that combination probably increased his creatinine. 3. Continue beta blockers. 4. Intolerant to EMILY inhibitors. He will need to follow up as an outpatient with Dr. Tong. We will sign off for now. He is planned on being sent to [place]. Job ID: [id number]
[2020-10-23 14:23] VITALS: BMI 23.6
[2020-10-23 15:54] VITALS: BP 114/57; TEMP 97.4
--- NOTE | 2020-10-25 18:43 | PQF ---
Dear : Prince Luzma Date 10/25/20 Please exercise your independent, professional judgment in responding to the clarification form. Clinical indicators are provided on the bottom of this form for your review Can you please further clarify the diagnosis of the patient? Please check appropriate box(es): [ x ] Acute kidney injury [ ] Insignificant laboratory findings [ ] Other diagnosis please specify [ ] Unable to determine Physician Signature: Date/Time: For continuity of documentation, please document condition throughout progress notes and discharge summary. Thank You. To be completed by CDI/Coding staff for physician review: Present Clinical Indicators - Signs / Symptoms / Labs Results and Location in Medical Record [ x ] Creatinine: 0.90, 1.08, 1.09, 1.41H Laboratory [ x ] His furosemide was held today due to a mild bump in creatinine DS pg.1 [ x ] Resumed if renal function is appropriate DS pg.1 [ x ] Generalized weakness H and P pg.1 Present Risk Factors Results and Location in Medical Record [ x ] 85 years old H and P pg.1 [ x ] CAD H and P pg.1 [ x ] IDDM H and P pg.1 [ x ] Cardiomyopathy H and P pg.1 [ x ] HTN H and P pg.2 [ x ] CHF H and P pg.2 Present Treatments Results and Location in Medical Record [ x ] Creatinine monitoring Laboratory [ x ] Held Lasix Ds pg.1 [ x ] IV Fluids MAR CDS/Fibre Composite Technician Signature: Bg Velasco Phone #: ext [phone] Date 10/25/20 This is a permanent part of the Medical Record [facility]
--- NOTE | 2020-10-25 18:44 | PQF ---
Dear : Prince Luzma Date 10/25/20 Please exercise your independent, professional judgment in responding to the clarification form. Clinical indicators are provided on the bottom of this form for your review Can you please further clarify the diagnosis of the patient? Please check appropriate box(es): Type II DM with With: [ ] Hypoglycemia [x] Hyperglycemia [ ] Other (specify) [ ] Other diagnosis [ ] Unable to determine Physician Signature: Date/Time: For continuity of documentation, please document condition throughout progress notes and discharge summary. Thank You. To be completed by CDI/Coding staff for physician review: Present Clinical Indicators - Signs / Symptoms / Labs Results and Location in Medical Record [ x ] POC Glucose: 87, 69L, 117H, 130H, 281H, 277H, 243H, 351H, 415H, 260H, 107H, 237H Laboratory [ x ] IDDM H and P pg.1 Present Risk Factors Results and Location in Medical Record [ x ] A 85 years old H and P pg.1 [ x ] CAD H and P pg.1 [ x ] Ischemic cardiomyopathy H and P pg.1 [ x ] HTN DS pg.4 [ x ] Systolic CHF H and P pg.3 Present Treatments Results and Location in Medical Record [ x ] Humalog SC MAR [ x ] Insulin 30 units SC MAR [ x ] IV Fluids MAR [ x ] IV Glucagon 1gm MAR [ x ] Glucose monitoring Laboratory CDS/Racking Technician Signature: Bg Velasco Phone #: ext [phone] Date 10/25/20 This is a permanent part of the Medical Record [facility]
--- NOTE | 2020-11-11 16:39 | EKG ---
Test Reason : Blood Pressure : / mmHG Vent. Rate : 062 BPM Atrial Rate : 060 BPM P-R Int : 144 ms QRS Dur : 154 ms QT Int : 518 ms P-R-T Axes : 000 -10 127 degrees QTc Int : 525 ms AV dual-paced rhythm Abnormal ECG Confirmed by DIANNA MURRELL, IFRAH Goldberg ([id number]), editor book RODNEY LUCIANO ([id number]) on 11/11/2020 4:38:40 PM Referred By: Confirmed By:IFRAH BUSTAMANTE MD
== END 2020-10-23 17:47 | disposition swing bed (61) | DRG 377 ==
LOC: ERS 17:02 → 2SE 18:10
PROVIDERS: ADMIT Internal Medicine; ATTEND Internal Medicine
PROC: 30233N1 Transfusion of Nonautologous Red Blood Cells into Peripheral Vein, Percutaneous Approach (ICD-10-PCS; principal; 2020-10-19)
PROC: 0W3P8ZZ Control Bleeding in Gastrointestinal Tract, Via Natural or Artificial Opening Endoscopic (ICD-10-PCS; 2020-10-20)
DX: K26.4 Chronic or unspecified duodenal ulcer with hemorrhage (principal); U07.1 COVID-19; J12.82 Pneumonia due to coronavirus disease 2019; I50.23 Acute on chronic systolic (congestive) heart failure; I25.810 Atherosclerosis of coronary artery bypass graft(s) without angina pectoris; D62 Acute posthemorrhagic anemia; I47.2 Ventricular tachycardia; E87.2 Acidosis; N17.9 Acute kidney failure, unspecified; I25.5 Ischemic cardiomyopathy; I11.0 Hypertensive heart disease with heart failure; C67.9 Malignant neoplasm of bladder, unspecified; T39.395A Adverse effect of other nonsteroidal anti-inflammatory drugs [NSAID], initial encounter; T38.0X5A Adverse effect of glucocorticoids and synthetic analogues, initial encounter; I95.9 Hypotension, unspecified; E03.9 Hypothyroidism, unspecified; Z95.1 Presence of aortocoronary bypass graft; Z95.810 Presence of automatic (implantable) cardiac defibrillator; Z86.73 Personal history of transient ischemic attack (TIA), and cerebral infarction without residual deficits; Z79.01 Long term (current) use of anticoagulants; Z79.82 Long term (current) use of aspirin; Z88.8 Allergy status to other drugs, medicaments and biological substances; Z79.4 Long term (current) use of insulin; Z79.890 Hormone replacement therapy; Z79.899 Other long term (current) drug therapy; E11.65 Type 2 diabetes mellitus with hyperglycemia
CPT/HCPCS: 36415; 36416; 71045; 74177; 80048; 81001; 83605; 83735; 83880; 84100; 84145; 85014; 85018; 85025; 85610; 85730; 86850; 86900; 86901; 87040; 93005; 93306; 99285; C9113; J0171; J1815; J1940; J2543; J2704; J3490; P9047; Q9967